=== PATIENT | female | born 1960 | race Caucasian/White ===

== ENCOUNTER 2017-06-16 12:31 | Inpatient (IN) | payer OTHER ==
[~2017-06-16] VITALS: Ht 160 cm; Wt 120.2 kg
[~2017-06-16 12:31] MED LIST: DIFLUCAN150 MG PO; MACROBID100 MG PO; PERCOCET 325 MG1 TA2 PO
--- NOTE | 2017-06-16 13:13 | ED PSYCHIATRIC COMPLAINT ---
History of Present Illness General Chief Complaint: Psychiatric Related Complaint Stated Complaint: + SI Source: patient Exam Limitations: no limitations Vital Signs & Intake/Output Vital Signs & Intake/Output Vital Signs Date Time Temp Pulse Resp B/P B/P Pulse O2 O2 Flow FiO2 Mean Ox Delivery Rate 06/17 1139 98.3 70 20 122/58 94 Room Air 06/17 0939 98.9 80 20 113/69 96 Room Air / 0710 98.2 64 18 127/76 95 Room Air / 0511 98.3 62 16 135/88 94 Room Air / 0219 98.0 60 20 121/60 94 Room Air 06/16 2238 97.8 71 16 116/68 95 Room Air 06/16 2015 99.0 78 18 116/77 97 Room Air 06/16 1841 98.8 79 18 137/70 96 Room Air 06/16 1605 98.6 72 18 133/66 98 Room Air 06/16 1404 97 Room Air ED Intake and Output 06/17 0000 06/16 1200 Intake Total Output Total Balance Patient 250 lb Weight Weight Reported by Patient Measurement Method Allergies Coded Allergies: hydrocodone (From VICODIN) (Intermediate, NAUSEA 06/16/17) erythromycin base (UNKNOWN 06/16/17) codeine (NAUSEA 06/16/17) Reconcile Medications No Known Home Medications Triage Note: PT TO ED WITH C/O "I DON'T WANT TO HURT MYSELF OR OR ANYTHING, BUT I WANT TO TALK TO SOMEONE, I DON'T WANT TO FEEL LIKE THIS, I CRY 24 HOUR A DAY, NOT SLEEPING". Triage Nurses Notes Reviewed? yes HPI: Patient presents for evaluation of depression and suicide ideation. Patient states that she has been having a lot of issues recently and feels that her brain has been leaping all over the place. She denies SI or HI but is beginning to feel a bit overwhelmed and she is not sure what to do. (Leidy VILLARREAL,Tom Gomes) Past History Travel History Traveled to [place] past 21 day No Medical History Any Pertinent Medical History? 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 No (Tom Forbes MD) Review of Systems Review of Systems Constitutional: Reports: no symptoms. EENTM: Reports: no symptoms. Respiratory: Reports: no symptoms. Cardiovascular: Reports: no symptoms. GI: Reports: no symptoms. Genitourinary: Reports: no symptoms. Musculoskeletal: Reports: no symptoms. Skin: Reports: no symptoms. Neurological/Psychological: Reports: see HPI. Hematologic/Endocrine: Reports: no symptoms. Immunologic/Allergic: Reports: no symptoms. All Other Systems: Reviewed and Negative (Leidy VILLARREAL,Tom Gomes) Physical Exam Physical Exam General Appearance: see below Neurological/Psychiatric: see below Comments: General: Alert, calm, cooperative Head: Normocephalic, atraumatic Eyes: Normal inspection, no nystagmus, EOMI Ears: Normal inspection Nose: Normal inspection Throat: Moist mucosa Neck: Supple, no goiter Heart: Regular rate and rhythm, no murmurs rubs or gallops Lungs: Clear to auscultation bilaterally with good air entry Abdomen: Soft nontender nondistended, normal bowel sounds Chest: Nontender Extremities: Normal range of motion grossly, mild tremors present, no cyanosis clubbing or edema of the upper extremities Neurologic: cranial nerves II through XII grossly intact, speech clear, gait normal Psychiatric: No apparent delusions or hallucinations, no pressured speech or thought blocking, emotionally labile SAD PERSONS Done? patient not suicidal (Leidy VILLARREAL,Tom Gomes) Progress Differential Diagnosis: DEPRESSION, ANXIETY, BIPOLAR DISORDER, PERSONALITY DISORDER Plan of Care: Orders Procedure Date/time Status Consistent Carbohydrate 2 06/17 B Active Admit to inpatient psych 06/17 1314 Active Continuous Observation Monitor 06/17 0700 Active Continuous Observation Monitor 06/17 0300 Active Continuous Observation Monitor 06/16 2300 Active Add-on Test (ER Only) 06/16 2045 Active Continuous Observation Monitor 06/16 1900 Active URINE 06/16 1400 Complete Current Medications Sig/Shahid Start time Last Medication Dose Stop Time Status Admin Hydroxyzine HCl 50 MG Q6P PRN 06/16 2044 AC 06/16 (Atarax) 2057 Laboratory Tests 04/04/18 1417: Anion Gap 12, Estimated GFR > 60, BUN/Creatinine Ratio 20.0, Glucose 114 H, Calcium 9.1, CBC w Diff NO MAN DIFF REQ, RBC 5.19, MCV 85.3, MCH 28.8, MCHC 33.8 , RDW 13.3, MPV 9.1, Gran % 68.3, Lymphocytes % 23.6, Monocytes % 6.2, Eosinophils % 1.3, Basophils % 0.6, Absolute Granulocytes 5.2, Absolute Lymphocytes 1.8, Absolute Monocytes 0.5, Absolute Eosinophils 0.1, Absolute Basophils 0, Serum Alcohol < 10.0 06/16/17 1400: Urine Opiates Screen < 100, Methadone Screen < 40, Barbiturate Screen < 60, Ur Phencyclidine Scrn < 6.00, Amphetamines Screen 300, U Benzodiazepines Scrn < 85, Urine Cocaine Screen < 50, Urine Cannabis Screen 20.80, Urine Test NEGATIVE Comments: 06/16/2017 3:23:13 PM patient 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 (Tom Forbes MD) Hand-Off Endorsed To: Néstor Tolentino MD Endorsed Time: 0700 Pending: other (re-eval) (Ruddy Rodriguez MD) Departure Departure Disposition: STILL A PATIENT Clinical Impression Primary Impression: Depression Referrals: Unknown (PCP/Family) Departure Forms: Customer Survey General Discharge Information Prescriptions: Current Visit Scripts No Known Home Medications (Tom Forbes MD) Departure Comments 06/16/17 6 PM Patient was signed out to me by Dr. Forbes. She is pending disposition by crisis. The patient will be signed out to Dr. Rodriguez at 7 PM (Tom Rasheed DO) Departure Condition: Stable (Ruddy Rodriguez MD) Psych Admission Note Psychiatric Admission: I have seen and evaluated RITESH ZHOU. I have also reviewed all the pertinent lab results and diagnostic results. RITESH ZHOU will be admitted to our inpatient Psychiatric unit for treatment and care. (Néstor Tolentino MD)
[2017-06-16 14:32] LABS: ABSOLUTE BASOPHIL COUNT 0 /CUMM (0.0-0.2); ABSOLUTE EOSINOPHIL COUNT 0.1 /CUMM (0.0-0.7); ABSOLUTE GRANULOCYTE CT 5.2 /CUMM (1.4-6.5); ABSOLUTE LYMPH COUNT 1.8 /CUMM (1.2-3.4); ABSOLUTE MONOCYTE COUNT 0.5 /CUMM (0.10-0.60); BASOPHIL % 0.6 % (0.0-2.0); EOSINOPHIL % 1.3 % (0-5); GRANULOCYTE % 68.3 % (42.2-75.2); HEMATOCRIT 44.3 % (37-47); MEAN CORPUSCULAR HGB 28.8 PG (27.0-31.0); MEAN CORPUSCULAR HGB CONC 33.8 G/DL (33.0-37.0); MEAN CORPUSCULAR VOLUME 85.3 FL (81.0-99.0); MEAN PLATELET VOLUME 9.1 FL (7.4-10.4); PLATELET COUNT 254 /CUMM (130-400); RBC DISTRIBUTION WIDTH 13.3 % (11.5-14.5); RED BLOOD CELL CT 5.19 /CUMM (4.20-5.40); WHITE BLOOD CELL COUNT 7.7 /CUMM (4.8-10.8)
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
[2017-06-17 16:34] VITALS: BP 100/75
[2017-06-17 19:48] VITALS: BP 118/69
[2017-06-17] MEDS ORDERED: METFORMIN HCL500 M3 PO (23:24)
[2017-06-17] MEDS ORDERED: ADVAIR 250-501 EACH INH (23:32)
[2017-06-18 08:34] VITALS: BP 138/79
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
[2017-06-18 12:11] VITALS: BP 110/60
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
[2017-06-18 15:37] VITALS: BP 119/76
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
--- NOTE | 2017-06-18 19:06 | History & Physical ---
General Information and HPI History of Present Illness: This middle-aged obese female was admitted to the hospital because of increased depression and anxiety. She has no previous history of psychiatric or other hospitalizations in [facility]. She claims she was once admitted in [facility] for psychiatric reasons for a few days many years ago but has not been seen any psychiatrist as outpatient and has not taken psychiatric medication. He also claims that she has not taken her medical medications given to her about 8 months ago and for last 6 months he has not taken any medicine. She used to be on inhaler and metformin but claims her sugar was always good and she has not been using her inhalers for her COPD. She claims she has COPD from long-term because she was a smoker most of her life started teenage years and smoking about a pack of cigarettes a day she denies drinking any alcohol or doing any drugs. 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 Her mother is alive in good health and her father a while ago. She claims she is and has 2 children in their 20s were in good health. She also reports that she had frequent urinary tract infection and was evaluated by a urologist but did not get the problem fixed with surgical procedure that was suggested by the outpatient urologist in [place]. Allergies/Medications Allergies: Coded Allergies: hydrocodone (From VICODIN) (Intermediate, NAUSEA 06/16/17) erythromycin base (UNKNOWN 06/16/17) codeine (NAUSEA 06/16/17) Home Med list Fluticasone/Salmeterol (Advair 250-50 Diskus) 250 MCG-50 MCG/DOSE BLST.W.DEV 1 PUF INH BID COPD (Reported) Metformin HCl 500 MG TABLET 500 MG PO BID DIABETES MAINTENANCE (Reported) Past History Travel History Traveled to [place] past 21 day No Medical History Neurological: NONE EENT: NONE Cardiovascular: NONE Respiratory: asthma, COPD Gastrointestinal: NONE Hepatic: NONE Renal: NONE Musculoskeletal: NONE Psychiatric: depression Endocrine: diabetes Blood Disorders: NONE Cancer(s): NONE 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 EENTM: Denies: no symptoms. Cardiovascular: Denies: no symptoms. Respiratory: Reports: see HPI, short of breath, sputum production. GI: Denies: no symptoms. Genitourinary: Reports: see HPI, dysuria. Musculoskeletal: Denies: no symptoms. Skin: Denies: no symptoms. Neurological/Psychological: Reports: see HPI, anxiety, depressed, emotional problems. Hematologic/Endocrine: Denies: no symptoms. All Other Systems: Reviewed and Negative Exam & Diagnostic Data Last 24 Hrs of Vital Signs/I&O Vital Signs Date Time Temp Pulse Resp B/P B/P Pulse O2 O2 Flow FiO2 Mean Ox Delivery Rate 06/18 1537 79 119/76 06/18 1211 78 110/60 06/18 0834 97.1 82 138/79 06/17 1948 98.1 78 118/69 Intake & Output 06/18 1600 06/18 0800 06/18 0000 Intake Total Output Total Balance Patient 265 lb Weight Physical Exam General Appearance Alert, Oriented X3, Cooperative, No Acute Distress Skin No Rashes, No Breakdown, No Significant Lesion HEENT Atraumatic, PERRLA, EOMI, Mucous Membr. moist/pink Neck Supple, No JVD, No thryomegaly, +2 Carotid Pulse wo Bruit Lymphatic Cervical nl Cardiovascular Regular Rate, Normal S1, Normal S2, No Murmurs, Gallops, Rubs Lungs Normal Air Movement, and rare coarse rhonchus but no significant bronchospasm Abdomen Soft, No Tenderness, No Hepatospenomegaly, No Masses Neurological Exam Findings: Normal Gait, Normal Speech, Strength at 5/5 X4 Ext, Normal Tone, Cranial Nerves 3-12 NL, Reflexes 2+ Cranial Nerves II through XII: Within normal limits and intact Extremities No Clubbing, No Cyanosis, No Edema, No Tenderness/Swelling Assessment/Plan Assessment: This middle-aged obese female is admitted for increasing anxiety and depression. She reports that she has long-standing history of COPD but has not been taking any medicine for more than 6 months and she saw her physician last time about 8 months ago in [place]. She also claims she was on metformin although her sugar was never high and it may have been for prediabetes. She has a history of frequent UTIs and her admission urinalysis is abnormal We will get a urine culture and continue her on Symbicort inhaler twice a day. There is no need for metformin at this time since her sugars being monitored in the hospital reasonably well. Her admission CBC and electrolytes are normal but she does not have any liver functions and we will check her liver functions and hemoglobin A1c with the next blood work. She does not need any other workup or treatment at this time until the culture result is back for the urine and then we will consider antibiotics. As Ranked By This Provider Problem List: 1. Depression 2. UTI (urinary tract infection) Miscellaneous Miscellaneous Documentation Attending Case Discussed With: Hong Toledo MD Primary Care Physician: Patient Has No Primary Care Dr Patient sees these Specialists none Level of Patient Care: JOHNNY Murcia Attending MD Review Statement Attending Statement Attending MD Statement: examined this patient, reviewed EMR data (avail), discussed with nursing Attending Assessment/Plan: This middle-aged obese female is admitted because of increasing depression and anxiety. She has long-standing COPD and frequent UTIs. We'll await for the urine culture result before giving her any antibiotics. She has some symptoms of urinary tract infection including dysuria but is afebrile and her white count is normal. We will also check her hemoglobin A1c but she does not need any metformin at this time unless her sugars go up in next couple of days. We will continue her Symbicort inhaler and albuterol for the rescue inhaler as needed.
[2017-06-18 19:39] VITALS: BP 116/73
[2017-06-19 08:06] VITALS: BP 135/84
--- NOTE | 2017-06-19 11:40 | CP SOUTH PROGRESS NOTE PSYCH ---
Psych (Inpt) Progress Note Progress Note Include the following elements, when applicable: Involvement in the active treatment of the patient with behavioral observations of the patient and the patient's response to the treatment. Review of the ongoing treatment process in the context of the treatment plan. Indication of how multi-disciplinary staff members are carrying out the treatment plan. Plans for future interventions and recommendations for revision of the treatment plan. Liaison with other physicians/providers. Progress Note: Pt notes that she continues to have post-void pain. Feels very tired today. Denies SI or HI. Plans to rest today. Current Medications Sig/Shahid Start time Last Medication Dose Route Stop Time Status Admin Albuterol Sulfate 2 PUF Q4P PRN 06/17 2345 AC INH Budesonide/ 2 PUF BID 06/17 2333 AC 06/19 Formoterol Fumarate INH 0819 Ergocalciferol 50,000 IU ONCE A WEEK 06/25 1000 AC PO Escitalopram Oxalate 10 MG DAILY 06/18 1000 AC 06/19 PO 0818 Gabapentin 200 MG Q2P PRN 06/17 2215 AC 06/18 PO 0922 Hydroxyzine HCl 50 MG Q6P PRN 06/16 2045 AC 06/18 PO 2135 Nicotine 2 MG Q2 HRS NEEDED PRN 06/18 1200 AC PO Trazodone HCl 50 MG AT BEDTIME NEED.. 06/17 2230 AC PO Laboratory Tests 06/19 06/17 0605 1410 Chemistry Hemoglobin A1c (4.2 - 5.8 %) Pending Total Bilirubin (0.2 - 1.3 mg/dL) 0.4 Direct Bilirubin (< 0.4 mg/dL) 0.4 AST (14 - 36 U/L) 18 ALT (9 - 52 U/L) 32 Alkaline Phosphatase (<127 U/L) 88 Total Protein (6.3 - 8.2 g/dL) 6.1 L Albumin (3.5 - 5.0 g/dL) 3.2 L Urines Urine Color (YEL,AMB,STR) YEL Urine Clarity (CLEAR) CLDY H Urine pH (5.0 - 8.0) 5.5 Ur Specific [place] (1.001 - 1.035) >= 1.030 Urine Protein (NEG,<30 MG/DL) NEG Urine Ketones (NEG) NEG Urine Nitrite (NEG) POS H Urine Bilirubin (NEG) NEG Urine Urobilinogen (0.1 - 1.0 EU/dl) 0.2 Ur Leukocyte Esterase (NEG) SMALL H Ur Microscopic SEDIMENT EXAMINED Urine RBC (0 - 5 /HPF) RARE Urine WBC (0 - 2 /HPF) 25-50 H Ur Epithelial Cells (NONE,FEW) MANY H Urine Bacteria (NEG/NONE) MANY H Urine Hemoglobin (NEG) MOD H Urine Glucose (N MG/DL) 100 H 06/16 06/16 1417 1400 Chemistry Sodium (137 - 145 mmol/L) 142 Potassium (3.5 - 5.1 mmol/L) 3.9 Chloride (98 - 107 mmol/L) 107 Carbon Dioxide (22 - 30 mmol/L) 23 Anion Gap (5 - 16) 12 BUN (7 - 17 mg/dL) 16 Creatinine (0.5 - 1.0 mg/dL) 0.8 Estimated GFR (>60 ml/min) > 60 BUN/Creatinine Ratio (7 - 25 %) 20.0 Glucose (65 - 99 mg/dL) 114 H Calcium (8.4 - 10.2 mg/dL) 9.1 Hematology CBC w Diff NO MAN DIFF REQ WBC (4.8 - 10.8 /CUMM) 7.7 RBC (4.20 - 5.40 /CUMM) 5.19 Hgb (12.0 - 16.0 G/DL) 15.0 Hct (37 - 47 %) 44.3 MCV (81.0 - 99.0 FL) 85.3 MCH (27.0 - 31.0 PG) 28.8 MCHC (33.0 - 37.0 G/DL) 33.8 RDW (11.5 - 14.5 %) 13.3 Plt Count (130 - 400 /CUMM) 254 MPV (7.4 - 10.4 FL) 9.1 Gran % (42.2 - 75.2 %) 68.3 Lymphocytes % (20.5 - 51.1 %) 23.6 Monocytes % (1.7 - 9.3 %) 6.2 Eosinophils % (0 - 5 %) 1.3 Basophils % (0.0 - 2.0 %) 0.6 Absolute Granulocytes (1.4 - 6.5 /CUMM) 5.2 Absolute Lymphocytes (1.2 - 3.4 /CUMM) 1.8 Absolute Monocytes (0.10 - 0.60 /CUMM) 0.5 Absolute Eosinophils (0.0 - 0.7 /CUMM) 0.1 Absolute Basophils (0.0 - 0.2 /CUMM) 0 Toxicology Urine Opiates Screen (>2000 NG/ML) < 100 Methadone Screen (>300 NG/ML) < 40 Barbiturate Screen (>200 NG/ML) < 60 Ur Phencyclidine Scrn (>25 NG/ML) < 6.00 Amphetamines Screen (>1000 NG/ML) 300 U Benzodiazepines Scrn (>200 NG/ML) < 85 Urine Cocaine Screen (>300 NG/ML) < 50 Urine Cannabis Screen (>50 NG/ML) 20.80 Serum Alcohol (<10 MG/DL) < 10.0 Urines Urine Test NEGATIVE Vital Signs Date Time Temp Pulse Resp B/P B/P Pulse O2 O2 Flow FiO2 Mean Ox Delivery Rate 06/19 0806 98.4 98 135/84 06/18 1939 98.0 100 116/73 06/18 1537 79 119/76 06/18 1211 78 110/60 MSE General appearance: good hygiene and grooming; Attitude: cooperative; Eye contact: appropriate; Movement: no psychomotor agitation or slowing; Speech: nl fluency, nl rate/rhythm, nl volume, nl prosody; Mood: "OK, tired" Affect: slightly irritable, flat, appropriate, constricted, non-labile, congruent; Thought process: linear and goal-directed; Thought content: denied SI or HI, no paranoid ideation; Perception: denied hallucinations- auditory, visual, does not appear to be responding to internal stimuli; I/J: limited A/P: Pt with MDD and passive SI in the context of a breakup now with slightly improved mood. - Awaiting ucx results, pending; medicine following -Continue current medication regimen -Encourage integration into the milieu
[2017-06-19 12:04] VITALS: BP 126/98
[2017-06-19 15:52] VITALS: BP 136/81
[2017-06-19 20:00] VITALS: BP 141/94
[2017-06-20 08:02] VITALS: BP 135/78
[2017-06-20 12:32] VITALS: BP 119/84
--- NOTE | 2017-06-20 12:44 | CP SOUTH PROGRESS NOTE PSYCH ---
Psych (Inpt) Progress Note Progress Note Include the following elements, when applicable: Involvement in the active treatment of the patient with behavioral observations of the patient and the patient's response to the treatment. Review of the ongoing treatment process in the context of the treatment plan. Indication of how multi-disciplinary staff members are carrying out the treatment plan. Plans for future interventions and recommendations for revision of the treatment plan. Liaison with other physicians/providers. Progress Note: Pt notes that she is very tired today. Slept well overnight. Still have post- void sx. Denies SI or HI. Current Medications Sig/Shahid Start time Last Medication Dose Route Stop Time Status Admin Albuterol Sulfate 2 PUF Q4P PRN 06/17 2345 AC INH Budesonide/ 2 PUF BID 06/17 2333 AC 06/20 Formoterol Fumarate INH 0901 Ergocalciferol 50,000 IU ONCE A WEEK 06/25 1000 AC PO Escitalopram Oxalate 10 MG DAILY 06/18 1000 AC 06/20 PO 0901 Gabapentin 200 MG Q2P PRN 06/17 2215 AC 06/18 PO 0922 Hydroxyzine HCl 50 MG Q6P PRN 06/16 2045 AC 06/19 PO 2121 Nicotine 2 MG Q2 HRS NEEDED PRN 06/18 1200 AC PO Nitrofurantoin 50 MG Q6 06/20 1229 UNVr PO 06/26 1200 Trazodone HCl 50 MG AT BEDTIME NEED.. 06/17 2230 AC 06/19 PO 2121 Laboratory Tests 06/19 06/17 0605 1410 Chemistry Hemoglobin A1c (4.2 - 5.8 %) Pending Total Bilirubin (0.2 - 1.3 mg/dL) 0.4 Direct Bilirubin (< 0.4 mg/dL) 0.4 AST (14 - 36 U/L) 18 ALT (9 - 52 U/L) 32 Alkaline Phosphatase (<127 U/L) 88 Total Protein (6.3 - 8.2 g/dL) 6.1 L Albumin (3.5 - 5.0 g/dL) 3.2 L Urines Urine Color (YEL,AMB,STR) YEL Urine Clarity (CLEAR) CLDY H Urine pH (5.0 - 8.0) 5.5 Ur Specific [place] (1.001 - 1.035) >= 1.030 Urine Protein (NEG,<30 MG/DL) NEG Urine Ketones (NEG) NEG Urine Nitrite (NEG) POS H Urine Bilirubin (NEG) NEG Urine Urobilinogen (0.1 - 1.0 EU/dl) 0.2 Ur Leukocyte Esterase (NEG) SMALL H Ur Microscopic SEDIMENT EXAMINED Urine RBC (0 - 5 /HPF) RARE Urine WBC (0 - 2 /HPF) 25-50 H Ur Epithelial Cells (NONE,FEW) MANY H Urine Bacteria (NEG/NONE) MANY H Urine Hemoglobin (NEG) MOD H Urine Glucose (N MG/DL) 100 H Microbiology 06/17 1410 URINE ROUT: Urine Culture - COMP ESCHERICHIA COLI Vital Signs Date Time Temp Pulse Resp B/P B/P Pulse O2 O2 Flow FiO2 Mean Ox Delivery Rate 06/20 1232 84 119/84 06/20 08 98.9 74 135/78 06/20 1999 99.0 70 141/94 06/19 1552 84 136/81 MSE General appearance: good hygiene and grooming; Attitude: cooperative; Eye contact: appropriate; Movement: no psychomotor agitation or slowing; Speech: nl fluency, nl rate/rhythm, nl volume, nl prosody; Mood: "sleepy" Affect: slightly irritable, flat, appropriate, constricted, non-labile, congruent; Thought process: linear and goal-directed; Thought content: denied SI or HI, no paranoid ideation; Perception: denied hallucinations- auditory, visual, does not appear to be responding to internal stimuli; I/J: limited A/P: Pt with MDD and passive SI in the context of a breakup now with slightly improved mood. - started nitrofurantoin x7d for symptomatic UTI based on ucx/s for E. Coli -Continue current medication regimen -Encourage integration into the milieu
[2017-06-20 16:13] VITALS: BP 142/77
[2017-06-20 19:41] VITALS: BP 131/87
[2017-06-21 08:03] VITALS: BP 116/89
--- NOTE | 2017-06-21 08:21 | CP SOUTH PROGRESS NOTE PSYCH ---
Psych (Inpt) Progress Note Progress Note Vital Signs Date Time Temp Pulse B/P B/P FiO2 06/21 802 97.3 91 116/89 06/20 1940 98.9 74 131/87 MSE good hygiene and grooming; cooperative; no psychomotor agitation or slowing; Normal speech, depressed mood and affect No thought disorder/linear and goal-directed; She reported that she is starting to have a glimmer of hope, denied SI or HI, no paranoid ideation; Perception: denied hallucinations, does not appear to be responding to internal stimuli Assessment: Pt with MDD and passive SI in the context of a breakup now with slightly improved mood. Treatment plan update Continue nitrofurantoin for symptomatic UTI Continue Lexapro 20 mg daily
[2017-06-21 12:21] VITALS: BP 119/75
[2017-06-21 15:56] VITALS: BP 132/72
--- NOTE | 2017-06-21 16:45 | SOCIAL WORKER PROG NOTE PSYCH ---
Social Work Progress Note Progress Note This science writer met with patient. She described her mood as "alright" and denied SI /HI/AH/VH. She stated that she had court scheduled for last 06/16/17, which she remember over the weekend. This science writer assisted the patient in calling the [place] [facility] to inquire about how she should proceed. The trade clerk requested that a letter is sent to the tso's office informing of the hospitalization (with ER visit on the date of the court date and current inpatient admission). (Letter was faxed to tso's Office at [phone] by Lashawn Patterson LCSW. This science writer confirmed receipt of the faxed letter with Sade at the tso's office at 4:43pm). Court date was for a misdemeanor, which she stated occurred about 3 years ago. This science writer and patient also discussed eventual discharge plans. She called [facility] and completed a phone screening in interest of a retirement. She was also encouraged to call [facility] [place] for a CAN assessment. This science writer called patient's friend, Jackie Brunner, and left in interest of scheduling a family meeting. A call back number was provided. This science writer left a for Layla Garza with [facility] at 3:17pm in interest of making a referral.
[2017-06-21 19:51] VITALS: BP 128/73
--- NOTE | 2017-06-22 08:24 | CP SOUTH PROGRESS NOTE PSYCH ---
Psych (Inpt) Progress Note Progress Note Vital Signs: Blood pressure: 116/80 mmHg, pulse 77 bpm, temperature: 97.4F The patient's progress, treatment plan, and aftercare plan were discussed and the treatment team meeting this morning. The team included nursing staff, social work staff, group and milieu therapy staff, and psychiatrist. Mental status examination: The patient was alert and oriented to time, place, and person. She was slightly out of breath. She showed normal psychomotor activity, no psychomotor agitation or slowing; Normal speech/not pressured, not slurred She reported some relative improvement in mood (though still depressed and anxious) No thought disorder/linear and goal-directed; She reported that she is starting to have a glimmer of hope, and denied SI. She denied thinking of violence or homicide, no paranoid ideation. The patient denied hallucinations, does not appear to be responding to internal stimuli Assessment: The patient is a 57-year-old White female who was admitted to the inpatient psychiatric unit at [facility] on June 17, 2017. Pt with MDD and passive SI Since her admission, the patient showed slightly improved mood. Treatment Plan update: Continue PRN Trazodone and PRN Atarax Continue nitrofurantoin for symptomatic UTI Continue Lexapro 20 mg daily
[2017-06-22 08:32] VITALS: BP 116/80
[2017-06-22 12:09] VITALS: BP 128/72
--- NOTE | 2017-06-22 14:00 | SOCIAL WORKER PROG NOTE PSYCH ---
Social Work Progress Note Progress Note RITESH ABELARDO [id number] 1960 RITESH ABELARDO [id number] Pended Authorization # Client Authorization # Type of Request [id number] CONCURRENT Date of Admission/ Start of Services Requested From Submission Date 06/17/2017 06/22/2017 06/22/2017
--- NOTE | 2017-06-22 14:37 | DISCHARGE SUMMARY REPORT-PSYCH ---
See Addendum Visit Information Visit Dates/Diagnosis' Admission Date: 06/17/17 Discharge Date: 06/24/17 Reason for Admission: thoughts of suicide Psy Discharge Primary Diag: Unspecified Depressive Disorder Hospital Course Significant Lab Findings: Lab Ur Epithelial Cells MANY H 06/17/17 1410 Urine Bacteria MANY H 06/17/17 1410 Urine Glucose 100 MG/DL H 06/17/17 1410 Urine Hemoglobin MOD H 06/17/17 1410 Urine WBC 25-50 /HPF H 06/17/17 1410 Course Complications: The patient did not have any complications when she was an inpatient psychiatric unit. Patient was treated for a urinary tract infection. Consultations: The patient had a history and physical examination by the therapy site coordinator. Please refer to the patient's electronic health record for the therapy site coordinator's H&P Allergies: Coded Allergies: hydrocodone (From VICODIN) (Intermediate, NAUSEA 06/16/17) erythromycin base (UNKNOWN 06/16/17) codeine (NAUSEA 06/16/17) Hospital Course/TX Response: Patient was admitted on 06/17/2017 I saw the patient for the initial psychiatric assessment on 06/18/2017. My initial Impression and Plan: 56-year-old single white female who was admitted because of severe depression and thoughts of suicide DSM 5 Diagnosis(es): Unspecified depressive disorder; COPD Treatment Plan: Inpatient psychiatric care with safety checks every 15 minutes Nursing assessments, vital signs, and patient education Group therapy and milieu therapy Biopsychosocial assessment by social work, collateral, and aftercare planning Patient to be evaluated daily by a psychiatrist ergocalciferol 50,000 international units every week 06/19/2017: Dr. Garnett was covering for the weekend and There were no changes made in the patient's medication 06/20/2017: Dr. Garnett was covering for the weekend started nitrofurantoin x7d for symptomatic UTI based on ucx/s for E. Coli -Continue current medication regimen 06/21/2017: No changes were made in the patient's treatment plan 06/22/2017: No changes were made in the patient's treatment plan 06/23/2017 The patient was continued on the same treatment. 06/24/2017 Mental Status Examination: Vital Signs: Blood pressure: 142/72 mmHg, pulse 97 bpm, temperature: 97.5F. The patient was alert and oriented to time, place, and person. She reported that "I am ready to go" "I can stay with a friend for a few days." She showed normal psychomotor activity with no psychomotor agitation or slowing. Her speech was normal/not pressured and not slurred. She reported some significant improvement in mood and denied feeling hopeless, denied wishing , and denied thoughts of suciide. No thought disorder/linear and goal-directed. She denied thinking of violence or homicide, no paranoid ideation. The patient denied hallucinations. Assessment: Nano is a 57-year-old White female who was admitted to the inpatient psychiatric unit on June 17, 2017. Pt with MDD and passive SI. Since her admission, the patient showed significant improvement since her admission on 06/17/2017 She is no longer thinking of suicide. Treatment Plan update: D/C to stay with a friend (friend lives 2 minutes from the hospital) Discharge HBIPS - Tobacco Use Treatment Offered Post DC Medications Offered: Script Given-See Med List Post DC Tobacco Treatment Plan: Marquez Tobacco Tx Pgm - EtOH/Drug Use D/O Treatment Offered Post DC Medications Offered: NA-No EtOH/Drug Use D/O Post DC EtOH/SubAbuse TX Plan: NA-No EtOH/Drug Use D/O Metabolic Screening - Screen if on a Neuroleptic Medication - Metabolic screening should include: - Blood Pressure, BMI, Glucose or Hgb A1c, & a - Lipid profile from within the past 365 days. Metabolic Screening ([X]) Not Applicable, patient not on a neuroleptic. Discharge Instructions General Discharge Information Multiple Neuroleptics: ([X]) Not Applicable Discharge Diet Regular Discharge Activity Normal DC Disposition: Discharge to a friend Referrals Ordered Referrals Provider Referral 06/28/17 For Providers: [Dr. Dickerson/Dr. Candelaria] For Groups: [[facility]] Dr. Dickerson/Dr. Candelaria [facility] [address] [place] [address] Appointment: 06/28/17, at 9:15am Please arrive by 9am Provider Referral 06/25/17 For Providers: [[facility]] For Groups: [[facility]] [address] [phone] [facility] Intake Appointment: 06/25/17, at 11:30am Provider Referral For Groups: [[facility]] [facility] [phone] They will contact you to schedule an appointment for counseling services. Provider Referral For Groups: [[facility]] [facility] Layla Garza Provider Referral 06/30/17 For Providers: [[facility]] For Groups: [[facility]] [facility] [address] [phone] Group meets every other Wednesday at 4pm Next group: 06/30/17, at 4pm Prescriptions Stop taking the following medications: Metformin HCl (Metformin HCl) 500 MG TABLET ORAL TWICE DAILY Fluticasone/Salmeterol (Advair 250-50 Diskus) 250 MCG-50 MCG/DOSE BLST.W.DEV Inhale through mouth TWICE DAILY Qty = 60 Start taking the following new medications: Loratadine (Loratadine) 10 MG TABLET 10 Milligram ORAL DAILY @8 AM Qty = 15 No Refills Albuterol Sulfate (Ventolin Hfa) 90 MCG HFA.AER.AD 2 Puff Inhale through mouth EVERY 4 HOURS NEEDED as needed for SHORTNESS OF BREATH Qty = 1 No Refills Nicotine (Nicorelief) 2 MG GUM 2 Milligram ORAL EVERY 2 HOURS NEEDED as needed for smoking Qty = 60 No Refills Escitalopram Oxalate (Lexapro) 10 MG TABLET 20 Milligram ORAL DAILY Qty = 15 No Refills Trazodone HCl (Trazodone HCl) 50 MG TABLET 50 Milligram ORAL AT BEDTIME as needed for Insomnia Qty = 15 No Refills Budesonide/Formoterol Fumarate (Symbicort 160-4.5 Mcg Inhaler) 160 MCG-4.5 MCG/ ACTUATION HFA.AER.AD 2 Puff Inhale through mouth TWICE DAILY Qty = 1 No Refills Ergocalciferol (Vitamin D2) (Vitamin D2) 50,000 UNIT CAPSULE 50,000 International Unit ORAL ONCE A WEEK Qty = 4 No Refills Studies Pending at Discharge None Copies To: [facility]
[2017-06-22 15:41] VITALS: BP 138/84
--- NOTE | 2017-06-22 16:47 | SOCIAL WORKER PROG NOTE PSYCH ---
Social Work Progress Note Progress Note This check writer salesperson met with patient. Patient stated that she has also spoken with her friend, Jackie, who stated that she would be able to stay with her for a few days upon discharge if needed. When asked about her mood, patient stated that she would like to speak with her children today as today is her birthday. This check writer salesperson spoke with Mary Jane Wagner RN and [facility] staff who will assist the patient in access to her phone so she can retrieve her daughter's number. Patient was informed that this check writer salesperson received a vm from [facility]. She gave authorization for this check writer salesperson to return the call. Patient denied SI/HI/AH/VH. This check writer salesperson spoke with Willa at [facility] who requested that the patient contact her for a screening. Patient was provided with their number ([phone]). She spoke with this check writer salesperson following the call and stated that the program is in [place] and that she would be very limited on finding a job or any travel due to not having transportation. This check writer salesperson received a call from Willa who confirmed this and stated that the patient may want to call [facility] again to explore other options. Willa asked that the patient call their office by 5pm tonight to inform of her decision. Patient informed this check writer salesperson that she is attempting to reach her friend, Jackie, to discuss the [facility] program and also calling [facility] and is waiting to hear from her. She stated that she would call [facility] by 5pm to inform of her decision. Patient was agreeable to a referral to [facility] in [place] (fax , 06/22/17 at 12:57pm) and [place] (fax [phone], 06/22/17 at 12: 59pm).
[2017-06-22 20:25] VITALS: BP 102/64
[2017-06-23 07:53] VITALS: BP 138/77
--- NOTE | 2017-06-23 14:55 | CP SOUTH PROGRESS NOTE PSYCH ---
Psych (Inpt) Progress Note Progress Note The patient's progress, treatment plan, and aftercare plan were discussed and the treatment team meeting this morning. The team included nursing staff, social work staff, group and milieu therapy staff, and psychiatrist. Mental Status Examination: Vital Signs: Blood pressure: 138/77 mmHg, pulse 78 bpm, temperature: 97.3F. The patient was alert and oriented to time, place, and person. She reported that "I am ready to go" but is waiting to hear from her friend. She showed normal psychomotor activity, no psychomotor agitation or slowing; Normal speech/not pressured, not slurred. She reported some relative improvement in mood (though still depressed and anxious). No thought disorder/linear and goal-directed. She denied wishing and denied SI. She denied thinking of violence or homicide, no paranoid ideation. The patient denied hallucinations. Assessment: Nano is a 57-year-old White female who was admitted to the inpatient psychiatric unit on June 17, 2017. Pt with MDD and passive SI. Since her admission, the patient showed slightly improved mood. She is no longer thinking of suicide. Treatment Plan update: Continue Lexapro 20 mg daily Continue PRN Trazodone and PRN Atarax Continue Ergocalciferol
[2017-06-23 16:10] VITALS: BP 99/65
--- NOTE | 2017-06-23 17:30 | SOCIAL WORKER PROG NOTE PSYCH ---
Social Work Progress Note Progress Note This ghost writer met with patient. Patient described her mood as "good" and denied SI/HI/AH/VH. Patient and this ghost writer discussed disharge plans. Patient stated that she plans to speak with her friend, Jackie, today or this evening about the possibility of the patient staying with her friend temporarily upon discharge. She stated that she may also be able to stay with her nephew if she is not able to stay with Jackie. This ghost writer and patient discussed other housing options. She stated that she is not comfortable with [facility] or a [facility] in [place] due to the town where they are located. She stated that she does feel safe in [place] where her friend lives. Patient expressed interest in IOP and a referral to [facility] for primary care. Patient accepted a referral to [facility] and met with Layla Garza from [facility] this afternoon to discuss their services. Patient will update this ghost writer with information regarding her conversation with her friend and/or nephew. She spoke with the nurse's desk about opting out, which they assisted her in doing.
[2017-06-23 20:03] VITALS: BP 113/85
[2017-06-24 08:11] VITALS: BP 142/72
--- NOTE | 2017-06-24 11:44 | CP SOUTH PROGRESS NOTE PSYCH ---
Psych (Inpt) Progress Note Progress Note The patient's progress, treatment plan, and aftercare plan were discussed and the treatment team meeting this morning. The team included nursing staff, social work staff, group and milieu therapy staff, and psychiatrist. Mental Status Examination: Vital Signs: Blood pressure: 142/72 mmHg, pulse 97 bpm, temperature: 97.5F. The patient was alert and oriented to time, place, and person. She reported that "I am ready to go" "I can stay with a friend for a few days." She showed normal psychomotor activity with no psychomotor agitation or slowing. Her speech was normal/not pressured and not slurred. She reported some significant improvement in mood and denied feeling hopeless, denied wishing , and denied thoughts of suciide. No thought disorder/linear and goal-directed. She denied thinking of violence or homicide, no paranoid ideation. The patient denied hallucinations. Assessment: Nano is a 57-year-old White female who was admitted to the inpatient psychiatric unit on June 17, 2017. Pt with MDD and passive SI. Since her admission, the patient showed significant improvement since her admission on 06/17/2017 She is no longer thinking of suicide. Treatment Plan update: D/C to stay with a friend (friend lives 2 minutes from the hospital)
[2017-06-24] MEDS ORDERED: VITAMIN D250000 UNIT PO (11:49)
[2017-06-24] MEDS ORDERED: VENTOLIN HFA18 GM INH (11:49)
[2017-06-24] MEDS ORDERED: SYMBICORT 16010.2 GM INH (11:49)
[2017-06-24] MEDS ORDERED: NICORELIEF2 MG PO (11:49)
[2017-06-24] MEDS ORDERED: LEXAPRO10 M1 PO (11:49)
[2017-06-24] MEDS ORDERED: LORATADINE10 M1 PO (11:49)
[2017-06-24] MEDS ORDERED: TRAZODONE HCL50 M1 PO (11:49)
--- NOTE | 2017-06-24 11:50 | Patient Discharge Instructions ---
Psych Discharge Inst General Discharge Information Reason for Admission: thoughts of suicide Psy Discharge Primary Diag+ MDD Summary Tests/Major Procedures Lab Ur Epithelial Cells MANY H 06/17/17 1410 Ur Leukocyte Esterase SMALL H 06/17/17 1410 Urine Bacteria MANY H 06/17/17 1410 Urine Bilirubin NEG 06/17/17 1410 Urine Clarity CLDY H 06/17/17 1410 Urine Color YEL 06/17/17 1410 Urine Glucose 100 MG/DL H 06/17/17 1410 Urine Hemoglobin MOD H 06/17/17 1410 Urine Ketones NEG 06/17/17 1410 Urine Nitrite POS H 06/17/17 1410 Urine Protein NEG MG/DL 06/17/17 1410 Urine Urobilinogen 0.2 EU/dl 06/17/17 1410 Urine WBC 25-50 /HPF H 06/17/17 1410 Urine pH 5.5 06/17/17 1410 Studies Pending at DC: None Patient Instructions Contact Information Your Psychiatrist on [facility] was Tre VILLARREAL,Hong * If you are experiencing an emergency related to this hospitalization, please call [phone] to contact the treating psychiatrist or the psychiatrist-on- call. * To Request a copy of your medical records, please contact the Medical Records Department at [phone]. * To request results of studies pending at the time of discharge, please call [phone]. * Continue your Medications until directed to stop by your Healthcare provider. General Medication Information Please continue to take your new medications and your continued home medications , unless otherwise indicated on your discharge medication list, or unless directed by your MD or FRENCH WEAVER to stop them. Special Instructions Diet Regular Activity Normal - Tobacco Use Treatment Offered Post DC Medications Offered: Script Given-See Med List Post DC Tobacco Treatment Plan: Refused Tobacco Tx Pgm - EtOH/Drug Use D/O Treatment Offered Post DC Medications Offered: NA-No EtOH/Drug Use D/O Post DC EtOH/SubAbuse TX Plan: NA-No EtOH/Drug Use D/O Metabolic Screening ([X]) Not Applicable, patient not on a neuroleptic. Advance Directives Does the Patient have Medical Advance Directives No/Refused further info Does Pt have Psychiatric Advance Directives? No/Refused further info Does Patient have a Designated Surrogate Decision Maker: No Information About Psychiatric Advance Directives Provided? Refused Discharge Plan Post Hospital Treatment Plan: IOP or OP
[2017-06-24 11:52] VITALS: BP 117/77
[2017-06-24 15:56] VITALS: BP 112/77
--- NOTE | 2017-06-24 18:42 | SOCIAL WORKER PROG NOTE PSYCH ---
Social Work Progress Note Progress Note This fiction writer met with patient. She expressed interest in finding a job and stated that she will be staying with her friend, Jackie, while looking for more permanent housing. She stated that Jackie will provide transportation from the hospital today. This fiction writer and patient attempted to reach Jackie by phone, but were unsuccessful. Patient reported a good mood and denied SI/HI/AH/VH. She identified a safety plan in which she stated, "I would come back here []. " She was also informed that she would be provided with crisis numbers and warm lines. Patient stated that if feeling threatened at any time, she would call 911. Patient was informed of appointments that have been scheduled, which she accepted: -[facility]: Wednesday, 9am on 06/28/[address] Dickerson and Dr. Candelaria. Appointment scheduled for kylee Licea. Patient will contact Layla after this appointment - IOP: 06/25/17 at 11:30am -[facility] Layla Castrejon - a vm was left for Layla with discharge information. She visited the unit prior to patient's discharge and provided her with her business card [email or web address] - this fiction writer spoke with [facility] who stated that they will contact the patient to schedule counseling in addition to IOP. Patient was provided with their number ([phone]) and will call them tomorrow if they have not already contacted her Patient provided an alternate phone number for herself: [phone] Patient's provided phone number for her friend, Jackie: [phone] Faxed Referral(s) 1 Referred To: IOP Transition of Care Documents sent: Health Summary Faxed to: IOP Fax #: [phone] Faxed by: Adryan Barclay LCSW Date faxed: 06/24/17 Time Faxed: [phone] Faxed Referral(s) 2 Referred To: [facility] Transition of Care Documents sent: Health Summary Faxed to: Dr. Dickerson/Dr. Candelaria, [facility] Fax #: [phone] Faxed by: JOHNNY [facility] Clerk Date faxed: 06/25/17 Time Faxed: [phone]
[2017-06-24 19:29] VITALS: BP 94/59
--- NOTE | 2017-06-25 15:59 | SOCIAL WORKER PROG NOTE PSYCH ---
Social Work Progress Note Progress Note This junior copywriter received a vm from Wendie at [facility] in interest of speaking with the patient. This junior copywriter contacted the patient by phone ([phone]) and gave her the message. She stated that she would call them. She also stated that she was unable to attend the IOP intake today and did not have a working phone until recently, therefore, unable to call. She stated that she would call [facility] to reschedule the intake (as well as [facility]) after this call. This information was relayed to [facility].
== END 2017-06-24 21:15 | DRG 754 ==
LOC: ERH 12:31 → ERHI 06-17 13:14 → CP SOUTH 06-17 13:14 → ENTRNSPT 06-17 15:53 → EDTRNSPTSTS 06-17 15:55 → CP SOUTH 06-17 16:07 → CMPTRNSPT 06-17 16:08 → CP SOUTH 06-17 18:23
PROVIDERS: Emergency Medicine
DX: F32.9 Major depressive disorder, single episode, unspecified (principal)
CPT/HCPCS: 36415; 80307; 81001; 81025; 87086; G0463; G0480; J3490

== ENCOUNTER 2017-09-12 20:07 | Inpatient (IN) | payer OTHER ==
[~2017-09-12] VITALS: Ht 165.1 cm; Wt 118.0 kg
[~2017-09-12 20:07] MED LIST changes: +ADVAIR 250-501 EACH INH; +CIPRO250 M1 PO; +CYCLOBENZAPRINE10 M1 PO; +IBUPROFEN600 M1 PO; +LEXAPRO10 M1 PO; +LORATADINE10 M1 PO; +METFORMIN HCL500 M3 PO; +NICORELIEF2 MG PO; +SYMBICORT 16010.2 GM INH; +TRAZODONE HCL50 M1 PO; +VENTOLIN HFA18 GM INH; +VITAMIN D250000 UNIT PO
--- NOTE | 2017-09-12 21:03 | ED DYSPNEA/ASTHMA COMPLAINT ---
History of Present Illness General Chief Complaint: General Adult Stated Complaint: "SOB,CHEST TIGHTNESS AND PRESSURE, N+V+D, DIZZY" Source: patient Exam Limitations: no limitations Vital Signs & Intake/Output Vital Signs & Intake/Output Vital Signs Date Time Temp Pulse Resp B/P B/P Pulse O2 O2 Flow FiO2 Mean Ox Delivery Rate 09/17 613 97.7 50 20 134/80 93 09/17 0049 93 Nasal 2.5L Cannula 09/17 0000 93 Nasal 2.5L Cannula 09/17 0000 93 Nasal 2.5L Cannula 09/16 2148 98.1 69 18 130/68 90 07/ 1605 89 Nasal 2.0L Cannula 09/16 1600 93 Nasal 2.5L Cannula 09/16 1404 98.1 61 16 130/86 92 Nasal 3.0L Cannula 09/16 1104 Nasal 2.0L Cannula 09/16 0859 92 Nasal 2.0L Cannula 09/16 0855 83 Room Air Room Air 09/16 0800 92 Nasal 2.0L Cannula 09/16 0800 97 Nasal 2.0L Cannula ED Intake and Output 09/17 0000 09/16 1200 Intake Total 1600 Output Total Balance 1600 Intake, IV 0 Intake, Oral 1600 Number 0 Bowel Movements Patient 260 lb Weight Weight Reported by Patient Measurement Method Allergies Coded Allergies: hydrocodone (From VICODIN) (Intermediate, NAUSEA 06/16/17) erythromycin base (UNKNOWN 06/16/17) codeine (NAUSEA 06/16/17) Triage Note: 57F TO ED W MULTIPLE COMPLAINTS, STATING "I JUST FEEL OFF AND THERE IS SOMETHING WRONG." VERY MALODOROUS OF URINE AND ADMITS TO CHRONIC UTI'S AND JUST COMPLETED COURSE OF CIPRO LAST WEEK. C/O DEEP MIDSTERNAL CHEST DISCOMFORT AND TIGHTNESS THAT BEGAN THIS MORNING WHEN SHE WOKE UP. DENIES RADIATION. ALSO REPORTS SHE HAS VOMITED MULTIPLE TIMES WHENEVER SHE EATS. STATES SHE RAN OUT OF HER METFORMIN WEEKS AGO AND HAS BEEN "ALL OVER THE PLACE" AND BECOMES TEARFUL AND SAYS SHE IS TIRED OF FEELING SO DEPRESSED. DENIES SUICIDALITY BUT EYE CONTACT POOR. PT IS VERY DIAPHORETIC IN TRIAGE. EKG COMPLETED, APPEARS NORMAL SINUS WITHOUT VENTRICULAR ECTOPY. Triage Nurses Notes Reviewed? yes Onset: Abrupt Duration: day(s): Timing: recent history Severity: moderate, severe Activities at Onset: none HPI: 57-year-old female comes into the emergency room for further evaluation of shortness of breath and dizziness. She has a history of COPD. She still smokes. He reports that she started to feel her breath morning and got dizzy when she was in the shower. She's had progressive shortness of breath. Denies any chest pain. Mild cough. Denies any fever chills or vomiting. Not on oxygen at home. Comes in for further evaluation. (Yovanny Retana) Reconcile Medications Budesonide/Formoterol Fumarate (Symbicort 160-4.5 Mcg Inhaler) 160 MCG-4.5 MCG/ ACTUATION HFA.AER.AD 2 PUF INH BID COPD Ergocalciferol (Vitamin D2) (Vitamin D2) 50,000 UNIT CAPSULE 50,000 IU PO ONCE A WEEK supplement Escitalopram Oxalate (Lexapro) 10 MG TABLET 20 MG PO DAILY depression/anxiety Ibuprofen 600 MG TABLET 1 TAB PO TID PRN PAIN with food Loratadine 10 MG TABLET 10 MG PO 0800 allergies Metformin HCl 500 MG TABLET 1 TAB PO BID diabetes (Reported) Trazodone HCl 50 MG TABLET 50 MG PO AT BEDTIME PRN Insomnia (Leidy VILLARREAL,Tom Gomes) Past History Travel History Traveled to [place] past 21 day No Medical History Any Pertinent Medical History? 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 No (Yovanny Retana) Review of Systems Review of Systems Constitutional: Reports: no symptoms. EENTM: Reports: no symptoms. Respiratory: Reports: see HPI. Cardiovascular: Reports: no symptoms. GI: Reports: no symptoms. Genitourinary: Reports: no symptoms. Musculoskeletal: Reports: no symptoms. Skin: Reports: no symptoms. Neurological/Psychological: Reports: no symptoms. Hematologic/Endocrine: Reports: no symptoms. Immunologic/Allergic: Reports: no symptoms. All Other Systems: Reviewed and Negative (Yovanny Retana) Physical Exam Physical Exam General Appearance: well developed/nourished, no apparent distress, alert, awake Head: atraumatic, normal appearance Eyes: Bilateral: normal appearance. Ears, Nose, Throat: normal ENT inspection, hearing grossly normal Neck: normal inspection Respiratory: decreased breath sounds, wheezing Cardiovascular: regular rate/rhythm Extremities: normal inspection, no edema Neurologic/Psych: awake, alert, oriented x 3 Skin: intact, normal color Core Measures ACS in differential dx? Yes CVA/TIA Diagnosis No Sepsis Present: No Sepsis Focused Exam Completed? No (Yovanny Retana) Progress Differential Diagnosis: asthma, AMI, bronchitis, costochondritis, CHF, COPD, musculoskeletal pain, pericarditis, pulmonary embolism, pneumonia, pneumothorax, rib fracture, unstable angina Plan of Care: Orders Procedure Date/time Status Nursing RT Care 09/16 08 Active Nursing Misc 09/16 UNK Active CHEST PHYSICAL THERAPY CHG 09/15 UNK Complete AEROSOL CHG 09/15 UNK Complete OXYGEN 09/15 UNK Complete OXYGEN DAILY CHARGE 09/15 UNK Complete CHEST PHYSICAL THERAPY CHG 09/14 UNK Complete AEROSOL CHG 09/14 UNK Complete OXYGEN 09/14 UNK Complete OXYGEN TRANSPORT 09/14 UNK Complete OXYGEN DAILY CHARGE 09/14 UNK Complete Current Medications Sig/Shahid Start time Last Medication Dose Stop Time Status Admin Prednisone 40 MG DAILY 09/17 0900 AC Methylprednisolone 20 MG ONCE ONE 09/16 2099 CAN (Solumedrol) 09/16 210 Polyethylene Glycol 17 GM DAILY 09/16 1000 AC 09/16 (Miralax) 1156 Senna/Docusate Sodium 1 TAB BID 09/16 1000 AC 09/16 (Senokot S) 204 Acetylcysteine 2 ML BID 09/14 2100 AC 09/16 (Mucosol 20%) 2009 Cyanocobalamin 250 MCG DAILY 09/14 1600 AC 09/16 (Vitamin B12) 0823 Guaifenesin 600 MG Q12 09/14 1126 AC 09/16 (Mucinex) 204 Trazodone HCl 50 MG AT BEDTIME PRN 09/13 2100 AC 09/17 (Desyrel) 0225 Doxycycline Hyclate 100 MG BID 09/13 1430 AC 09/16 (Vibramycin) 2045 Albuterol Sulfate 3 ML EVERY 4 HRS/AWAKE 09/13 1200 AC 09/16 (Proventil) 2009 Budesonide/ 2 PUF BID 09/13 899 AC 09/16 Formoterol Fumarate 2043 (Symbicort) Escitalopram Oxalate 20 MG DAILY 09/13 899 AC 09/16 (Lexapro) 822 Nicotine 14 MG DAILY 09/13 09 AC (Nicotine Cq) Insulin Aspart 0 TIDAC 09/13 08 AC 09/16 (NovoLOG) 115 Heparin Sodium 5,000 UNIT Q8 09/13 06 AC 09/17 (Porcine) 05 Acetaminophen 650 MG Q8P PRN 09/13 0300 AC 09/14 (Tylenol) 2148 Diagnostic Imaging: Viewed by Me: Radiology Read. Discussed w/RAD: Radiology Read. Radiology Impression: PATIENT: RITESH ZHOU PRESENT AGE: 57 PATIENT ACCOUNT NO: [id number] : 61 LOCATION: [facility] ORDERING PHYSICIAN: Yovanny TRAN SERVICE DATE: 09/12/17 EXAM TYPE: RAD - XRY-CHEST XRAY, TWO VIEWS EXAMINATION: XR CHEST CLINICAL INFORMATION: Chest pain. COMPARISON: None TECHNIQUE: 2 views of the chest were obtained. FINDINGS: No significant abnormality is noted involving the heart, lungs, mediastinum, bony thorax or soft tissues. IMPRESSION: Unremarkable examination. DICTATED BY: Eduar Lu MD DATE/TIME DICTATED:09/12/172135 TRANSPORTATION PLANNING TECHNICIAN:BLESSING DATE/TIME TRANSCRIBED:09/12/172135 CONFIDENTIAL, DO NOT COPY WITHOUT APPROPRIATE AUTHORIZATION. <Electronically signed in Other Vendor System> SIGNED BY: Eduar Lu MD 09/12/172139 Initial ED EKG: normal sinus rhythm, rate (75), nonspecific ST T wave chg Comments: 09/12/2017 10:25:43 PM Patient was complaining of feeling hopeless. Feeling depressed and very tearful. She doesn't care what happens to her. She is going to stay overnight for evaluation treatment the morning. Signout to Dr. Forbes. (Lester TRAN,Yovanny) CXR Impression: no acute abnormality Comments: 09/12/2017 11:30:33 PM patient signed out to me by PA at shift change advisor. 09/13/2017 1:40:26 AM despite 3 nebulized bronchodilator treatments and IV Solu- Medrol, Grisel continues to have coughing fits and wheezing. She states that her nebulizer at home never seems to work as well as which she receives in the emergency department/hospital. Given this I feel she requires hospitalization. (Tom Forbes MD) Departure Departure Condition: Stable Clinical Impression Primary Impression: COPD (chronic obstructive pulmonary disease) Secondary Impressions: Depression Referrals: Teagan Candelaria MD (PCP/Family) Departure Forms: Customer Survey General Discharge Information (Yovanny Retana) Departure Disposition: STILL A PATIENT Admission Note Spoke With: Guillermo Vega MD Documentation of Exam: Documentation of any treatments & extenuating circumstances including Concerns Regarding Discharge (functional status, medication knowledge or non-compliance, living conditions, etc.) that warrant an admission rather than observation: Patient is experiencing an acute exacerbation of COPD with decreased air entry and and expiratory wheezing despite repeated inhaled bronchodilators and IV Solu -Medrol. I do not feel she is a good candidate for outpatient management. I suspect that the exertion of outpatient treatment would exacerbate her COPD causing dyspnea chest pain hypoxia and potentially respiratory failure. She will very likely return in worse clinical condition. I feel she now requires hospitalization for continued nebulized bronchodilators and IV steroids. Oxygen should be supplemented if necessary. Pulmonary consultation should be considered. Smoking cessation counseling should be provided and treatment with a nicotine patch for nicotine gum initiated. Patient's COPD medications should be reviewed and optimized. I feel she will require a multiple day hospitalization. PA/MULT AU MATIC OPERATOR Co-Sign Statement Statement: ED Attending supervision documentation- [X] I saw and evaluated the patient. I have also reviewed all the pertinent lab results and diagnostic results. I agree with the findings and the plan of care as documented in the PA's/MULT AU MATIC OPERATOR's documentation. [] I have reviewed the ED Record and agree with the PA's/MULT AU MATIC OPERATOR's documentation. [] Additions or exceptions (if any) to the PAs/MULT AU MATIC OPERATOR's note and plan are summarized below: [] (Tom Forbes MD) Critical Care Note Critical Care Note Critical Care Time: non-applicable (Yovanny Retana) Departure Forms: Customer Survey General Discharge Information (Yovanny Retana) Departure Disposition: STILL A PATIENT Admission Note Spoke With: Guillermo Vega MD Documentation of Exam: Documentation of any treatments & extenuating circumstances including Concerns Regarding Discharge (functional status, medication knowledge or non-compliance, living conditions, etc.) that warrant an admission rather than observation: Patient is experiencing an acute exacerbation of COPD with decreased air entry and and expiratory wheezing despite repeated inhaled bronchodilators and IV Solu -Medrol. I do not feel she is a good candidate for outpatient management. I suspect that the exertion of outpatient treatment would exacerbate her COPD causing dyspnea chest pain hypoxia and potentially respiratory failure. She will very likely return in worse clinical condition. I feel she now requires hospitalization for continued nebulized bronchodilators and IV steroids. Oxygen should be supplemented if necessary. Pulmonary consultation should be considered. Smoking cessation counseling should be provided and treatment with a nicotine patch for nicotine gum initiated. Patient's COPD medications should be reviewed and optimized. I feel she will require a multiple day hospitalization. (Leidy VILLARREAL,Tom Gomes) Critical Care Note Critical Care Note Critical Care Time: non-applicable (Lester TRAN,Yovanny)
[2017-09-12 21:13] LABS: ABSOLUTE BASOPHIL COUNT 0 /CUMM (0.0-0.2); ABSOLUTE EOSINOPHIL COUNT 0.1 /CUMM (0.0-0.7); ABSOLUTE GRANULOCYTE CT 3.2 /CUMM (1.4-6.5); ABSOLUTE LYMPH COUNT 1.4 /CUMM (1.2-3.4); ABSOLUTE MONOCYTE COUNT 0.4 /CUMM (0.10-0.60); BASOPHIL % 0.4 % (0.0-2.0); EOSINOPHIL % 2.7 % (0-5); HEMATOCRIT 40.8 % (37-47); MEAN CORPUSCULAR HGB 28.1 PG (27.0-31.0); MEAN CORPUSCULAR HGB CONC 33.8 G/DL (33.0-37.0); MEAN PLATELET VOLUME 8.3 FL (7.4-10.4); PLATELET COUNT 276 /CUMM (130-400); RBC DISTRIBUTION WIDTH 13.4 % (11.5-14.5); RED BLOOD CELL CT 4.91 /CUMM (4.20-5.40); WHITE BLOOD CELL COUNT 5.1 /CUMM (4.8-10.8)
--- NOTE | 2017-09-12 21:40 | RADIOLOGY REPORT ---
EXAMINATION: XR CHEST CLINICAL INFORMATION: Chest pain. COMPARISON: None TECHNIQUE: 2 views of the chest were obtained. FINDINGS: No significant abnormality is noted involving the heart, lungs, mediastinum, bony thorax or soft tissues. IMPRESSION: Unremarkable examination.
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
[2017-09-13] MEDS ORDERED: METFORMIN HCL500 M3 PO (04:56)
[2017-09-13 06:28] VITALS: BP 134/86
[2017-09-13 07:30] LABS: ABSOLUTE BASOPHIL COUNT 0 /CUMM (0.0-0.2); ABSOLUTE EOSINOPHIL COUNT 0 /CUMM (0.0-0.7); ABSOLUTE GRANULOCYTE CT 3.8 /CUMM (1.4-6.5); ABSOLUTE LYMPH COUNT 0.6 /CUMM (1.2-3.4); ABSOLUTE MONOCYTE COUNT 0 /CUMM (0.10-0.60); BASOPHIL % 0 % (0.0-2.0); EOSINOPHIL % 0.1 % (0-5); HEMATOCRIT 40.2 % (37-47); MEAN CORPUSCULAR HGB 28.1 PG (27.0-31.0); MEAN CORPUSCULAR HGB CONC 33.3 G/DL (33.0-37.0); MEAN CORPUSCULAR VOLUME 84.3 FL (81.0-99.0); MEAN PLATELET VOLUME 8.8 FL (7.4-10.4); PLATELET COUNT 262 /CUMM (130-400); RBC DISTRIBUTION WIDTH 13.7 % (11.5-14.5); RED BLOOD CELL CT 4.77 /CUMM (4.20-5.40); WHITE BLOOD CELL COUNT 4.5 /CUMM (4.8-10.8)
[2017-09-13 08:16] LABS: GRANULOCYTE % 85.9 % (42.2-75.2)
--- NOTE | 2017-09-13 11:02 | Event Note ---
Event Note Event Note: Patient seen and examined today. She continues to have wheezing and cough with resulting chest soreness. On physical exam mild wheezes are heard throughout and she has soreness around the area of the sternum on palpation. The patient recounts that she has never seen a warehouse record clerk but had been referred to 1, missed the appointment because she was not able to get a ride there. The patient also states that she has a long history of snoring at night and bilateral lower extremity edema. Plan -We will order another EKG and troponin as patient has continuing chest pain -We will continue Solu-Medrol 40 mg every 8, of note patient has normal oxygen saturation off supplementary oxygen -As we are unsure of how much CHF may contribute to this patient's symptoms, we will order BNP and echocardiogram -We will hold antibiotics unless patient spikes fever or has elevated white blood cell count -We will do a noncontrast CT chest to evaluate for any other abnormality within the lungs or heart. -We have consulted with warehouse record clerk Dr. Pederson as well. Patient is full code Regular diet
--- NOTE | 2017-09-13 11:39 | PN- Att Addend ---
Attending Addendum Attending Brief Note Patient seen and examined, not feeling better. Still pretty short of breath. Patient is admitted with shortness of breath and acute COPD exacerbation. She had mentioned she had some chest pressure yesterday. Vital Signs Date Time Temp Pulse Resp B/P B/P Pulse O2 O2 Flow FiO2 Mean Ox Delivery Rate 09/13 0916 Room Air Room Air 09/13 0628 97.6 62 20 134/86 92 Room Air 09/13 0439 Room Air 09/13 0137 87 20 136/70 94 Room Air 09/12 2255 98.8 72 18 125/67 94 Room Air 09/12 2115 94 09/12 2021 98.3 75 16 99/67 98 Room Air on exam: aox3, nad. cv; s1,s2, rrr resp; + exp wheeze b/l abd; soft, nt, bs+ ext; no edema Laboratory Tests 09/13 09/13 1006 0658 Chemistry Sodium (137 - 145 mmol/L) 143 Potassium (3.5 - 5.1 mmol/L) 3.6 Chloride (98 - 107 mmol/L) 107 Carbon Dioxide (22 - 30 mmol/L) 25 Anion Gap (5 - 16) 10 BUN (7 - 17 mg/dL) 13 Creatinine (0.5 - 1.0 mg/dL) 0.6 Estimated GFR (>60 ml/min) > 60 BUN/Creatinine Ratio (7 - 25 %) 21.7 Troponin I Pending Kqb-N-Qmymdeuhyef Pept Pending Hematology CBC w Diff NO MAN DIFF REQ WBC (4.8 - 10.8 /CUMM) 4.5 L RBC (4.20 - 5.40 /CUMM) 4.77 Hgb (12.0 - 16.0 G/DL) 13.4 Hct (37 - 47 %) 40.2 MCV (81.0 - 99.0 FL) 84.3 MCH (27.0 - 31.0 PG) 28.1 MCHC (33.0 - 37.0 G/DL) 33.3 RDW (11.5 - 14.5 %) 13.7 Plt Count (130 - 400 /CUMM) 262 MPV (7.4 - 10.4 FL) 8.8 Gran % (42.2 - 75.2 %) 85.9 H Lymphocytes % (20.5 - 51.1 %) 13.0 L Monocytes % (1.7 - 9.3 %) 1.0 L Eosinophils % (0 - 5 %) 0.1 Basophils % (0.0 - 2.0 %) 0 Absolute Granulocytes (1.4 - 6.5 /CUMM) 3.8 Absolute Lymphocytes (1.2 - 3.4 /CUMM) 0.6 L Absolute Monocytes (0.10 - 0.60 /CUMM) 0 L Absolute Eosinophils (0.0 - 0.7 /CUMM) 0 Absolute Basophils (0.0 - 0.2 /CUMM) 0 09/12 2106 Chemistry Sodium (137 - 145 mmol/L) 145 Potassium (3.5 - 5.1 mmol/L) 3.5 Chloride (98 - 107 mmol/L) 108 H Carbon Dioxide (22 - 30 mmol/L) 26 Anion Gap (5 - 16) 10 BUN (7 - 17 mg/dL) 11 Creatinine (0.5 - 1.0 mg/dL) 0.8 Estimated GFR (>60 ml/min) > 60 BUN/Creatinine Ratio (7 - 25 %) 13.8 Glucose (65 - 99 mg/dL) 159 H Hemoglobin A1c (4.2 - 5.8 %) 6.2 H Calcium (8.4 - 10.2 mg/dL) 8.8 Total Bilirubin (0.2 - 1.3 mg/dL) 0.4 AST (14 - 36 U/L) 22 ALT (9 - 52 U/L) 30 Alkaline Phosphatase (<127 U/L) 97 Troponin I (< 0.11 ng/ml) < 0.01 Total Protein (6.3 - 8.2 g/dL) 6.4 Albumin (3.5 - 5.0 g/dL) 3.4 L Globulin (1.9 - 4.2 gm/dL) 3.0 Albumin/Globulin Ratio (1.1 - 2.2 %) 1.1 Vitamin B12 (239 - 931 pg/mL) 232 L TSH &T3 &Free T4 Intrp (0.270 - 4.20 uIU/mL) 0.716 Hematology CBC w Diff NO MAN DIFF REQ WBC (4.8 - 10.8 /CUMM) 5.1 RBC (4.20 - 5.40 /CUMM) 4.91 Hgb (12.0 - 16.0 G/DL) 13.8 Hct (37 - 47 %) 40.8 MCV (81.0 - 99.0 FL) 83.0 MCH (27.0 - 31.0 PG) 28.1 MCHC (33.0 - 37.0 G/DL) 33.8 RDW (11.5 - 14.5 %) 13.4 Plt Count (130 - 400 /CUMM) 276 MPV (7.4 - 10.4 FL) 8.3 Gran % (42.2 - 75.2 %) 62.0 Lymphocytes % (20.5 - 51.1 %) 27.4 Monocytes % (1.7 - 9.3 %) 7.5 Eosinophils % (0 - 5 %) 2.7 Basophils % (0.0 - 2.0 %) 0.4 Absolute Granulocytes (1.4 - 6.5 /CUMM) 3.2 Absolute Lymphocytes (1.2 - 3.4 /CUMM) 1.4 Absolute Monocytes (0.10 - 0.60 /CUMM) 0.4 Absolute Eosinophils (0.0 - 0.7 /CUMM) 0.1 Absolute Basophils (0.0 - 0.2 /CUMM) 0 Toxicology Serum Alcohol (<10 MG/DL) < 10.0 09/12 Toxicology Urine Opiates Screen (>2000 NG/ML) < 100 Methadone Screen (>300 NG/ML) < 40 Barbiturate Screen (>200 NG/ML) < 60 Ur Phencyclidine Scrn (>25 NG/ML) < 6.00 Amphetamines Screen (>1000 NG/ML) 299 U Benzodiazepines Scrn (>200 NG/ML) < 85 Urine Cocaine Screen (>300 NG/ML) < 50 Urine Cannabis Screen (>50 NG/ML) 8.70 Urines Urine Color (YEL,AMB,STR) YEL Urine Clarity (CLEAR) HAZY H Urine pH (5.0 - 8.0) 6.0 Ur Specific [place] (1.001 - 1.035) >= 1.030 Urine Protein (NEG,<30 MG/DL) TRACE H Urine Ketones (NEG) NEG Urine Nitrite (NEG) NEG Urine Bilirubin (NEG) NEG@ICTO Urine Urobilinogen (0.1 - 1.0 EU/dl) 1.0 Ur Leukocyte Esterase (NEG) NEG Ur Microscopic SEDIMENT EXAMINED Urine RBC (0 - 5 /HPF) RARE Urine WBC (0 - 2 /HPF) 5-10 H Ur Epithelial Cells (NONE,FEW) MANY H Urine Bacteria (NEG/NONE) MOD H Urine Mucus (FEW,NONE) MANY H Urine Hemoglobin (NEG) NEG Urine Glucose (N MG/DL) NEG EKG: NSR. A/P: 57 y/o F with pmh sig for Asthma, COPD (dx'ed 2011, not on home O2), type 2 diabetes, depression (admitted to [facility] a few months ago), current smoker w/ 40 pk year smoking history, recurrent UTIs admitted with shortness of breath and acute COPD exacerbation. Patient complains of chest pressure, I will repeat her troponin. EKG and first troponin were negative. We will also check an echocardiogram. We will obtain a noncontrast CT chest. She is not requiring any oxygen but she feels very short of breath with minimal exertion and has bilateral expiratory wheezing. Will also call a pulmonology consult. Continue current IV steroids and TRC nebs. Will watch off of antibiotics. Patient afebrile with white count normal. DVT prophylaxis: Heparin subcutaneous.
--- NOTE | 2017-09-13 12:56 | CT SCAN REPORT ---
EXAMINATION: CT CHEST WITHOUT CONTRAST CLINICAL INFORMATION: Shortness of breath, cough. Presumptive diagnosis of lung pathology contributing to shortness of breath. COMPARISON: Chest x-ray dated 09/12/2017. TECHNIQUE: Multidetector volumetric CT imaging of the chest was obtained noncontrast. Sagittal and coronal reformations were obtained. DLP: 745.08 mGy-cm. FINDINGS: LUNGS: Slight thickening of the central small airways is seen, and there is a suspicion of subtle groundglass opacity centrilobular nodules, most prominent in both upper lobes. No bronchiectasis or significant pulmonary emphysema or evidence of interstitial lung disease or fibrosis. Scattered areas of linear atelectatic changes are noted in the lungs bilaterally. There are a few tiny 2 to 3 mm solid noncalcified nodular densities in the lungs bilaterally, some of which appear to be associated with airways. These nodular densities are seen in the right upper lobe (series 4, image 139, 170), associated with the left major fissure (series 4, image 167), associated with the right major fissure (series 4, image 219), and in the right lower lobe (series 4, image 320). No effusion or pneumothorax. LYMPHOVASCULAR STRUCTURES: Aortic and heart size normal. Mild atherosclerotic calcifications of the aorta. No pericardial effusion. No mediastinal, hilar or axillary adenopathy or free fluid collection. THYROID GLAND: Unremarkable to the extent included. UPPER ABDOMEN: There is a 1.1 x 1.4 x 2.3 cm subcapsular low-attenuation mass in the left lobe of the liver (series 2, image 48), likely a cyst. Additional 0.8 cm low-attenuation mass is seen in the right lobe of the liver (series 2, image 62), demonstrating slightly indistinct margins but central fluid attenuation, possibly a cystic lesion. Ill-defined low-attenuation is seen in the caudate lobe (series 2, image 54), along the anterior margin of the IVC, possibly representing focal fat infiltration versus volume averaging with the left hepatic vein versus artifact related to beam hardening. Included portions of the solid organs in the upper abdomen otherwise unremarkable. Postcholecystectomy tawny are seen in place. BONES: Moderate vertebral spondylosis is seen throughout the spine. No suspicious focal findings. IMPRESSION: 1. Slightly thickened airways a few which are associated with small nodular densities, likely representing mucus plugging. Subtle faint groundglass opacity centrilobular nodules are also seen in the upper lobes. These findings may be associated with chronic small airways disease or acute bronchitis/reactive airways disease (respiratory bronchiolitis) or hypersensitivity pneumonitis. Clinical correlation requested. 2. A few scattered tiny pulmonary nodules are seen, measuring between 2 and 3 mm. Several of these are associated with airways (likely mucous plugging) as discussed above or with fissures (likely fissural based lymph nodes). No suspicious pulmonary nodule or mass is seen. Per the Fleischner criteria, if the patient has underlying risk factors, optional CT scan follow-up in 12 months can be performed. If the patient is low risk, no routine follow-up is required. 3. Incompletely characterized low-attenuation masses are seen in the liver as discussed above, possibly representing cysts in the left and right lobes and an area of focal fat infiltration in the caudate lobe. However, characterization of the findings is limited on this noncontrast enhanced CT scan. If the patient has no outside old films for comparison, recommend further assessment with MRI scan. 4. Status post cholecystectomy.
--- NOTE | 2017-09-13 13:18 | Cons- Pulmonary ---
General Information and HPI Consulting Request Date of Consult: 09/13/17 Requested By: Sera Reason for Consult: Acute hypoxic respiratory failure COPD and exacerbation History of Present Illness: Patient is 57-year-old with a 63-[id number]-[id number] smoking history actively smoking admitted with increasing cough shortness of breath with several days' duration. She denies having had pulmonary function testing but has been told of COPD by her primary care doctor. She was actively smoking approximately half pack per day. She's had increasing cough shortness of breath and intermittent anterior chest pain. CT scan of the chest shows evidence of mucous plugging and pulmonary nodules. Patient has been treated with IV steroids Allergies/Medications Allergies: Coded Allergies: hydrocodone (From VICODIN) (Intermediate, NAUSEA 06/16/17) erythromycin base (UNKNOWN 06/16/17) codeine (NAUSEA 06/16/17) Home Med List: Budesonide/Formoterol Fumarate (Symbicort 160-4.5 Mcg Inhaler) 160 MCG-4.5 MCG/ ACTUATION HFA.AER.AD 2 PUF INH BID COPD Ergocalciferol (Vitamin D2) (Vitamin D2) 50,000 UNIT CAPSULE 50,000 IU PO ONCE A WEEK supplement Escitalopram Oxalate (Lexapro) 10 MG TABLET 20 MG PO DAILY depression/anxiety Ibuprofen 600 MG TABLET 1 TAB PO TID PRN PAIN with food Loratadine 10 MG TABLET 10 MG PO 0800 allergies Metformin HCl 500 MG TABLET 1 TAB PO BID diabetes (Reported) Trazodone HCl 50 MG TABLET 50 MG PO AT BEDTIME PRN Insomnia Review of Systems Review of Systems Constitutional: Denies: chills, fever. Cardiovascular: Reports: chest pain. Denies: edema. Respiratory: Reports: cough, short of breath, wheezing. Denies: hemoptysis, sputum production. GI: Denies: abdominal pain, diarrhea, melena, nausea. 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 MOTHER (thyroid disorder, type unknown). Psychosocial History Services at Home: None Smoking Status: Current Everyday Smoker Functional Ability ADLs Independent: dressing, eating, toileting, bathing. Ambulation: independent Employment History Employment: Unemployed Exam & Diagnostic Data Last 24 Hrs of Vital Signs/I&O Vital Signs Date Time Temp Pulse Resp B/P B/P Pulse O2 O2 Flow FiO2 Mean Ox Delivery Rate 09/13 1225 87 Room Air Room Air 09/13 0916 Room Air Room Air 09/13 0800 94 Room Air 09/13 0628 97.6 62 20 134/86 92 Room Air 09/13 0439 Room Air 09/13 0137 87 20 136/70 94 Room Air 09/12 2255 98.8 72 18 125/67 94 Room Air 09/12 2115 94 07 2022 98.3 75 16 99/67 98 Room Air Intake & Output 09/13 1600 09/13 0800 09/13 0000 Intake Total Output Total Balance Patient 258 lb Weight Weight Bed scale Measurement Method Room oxygen saturation 87% she was placed on 2 L nasal oxygen HNT exam shows no adenopathy exam for chest shows scattered expiratory wheezes cardiac exam shows regular S1 and S2 abdomen shows a soft nontender obese abdomen her extremities without edema Last 48 Hrs of Labs/Gabe: Laboratory Tests 09/13/17 1006: Troponin I < 0.01, Aux-K-Cdexpltemai Pept 136 H 09/13/17 0658: Anion Gap 10, Estimated GFR > 60, BUN/Creatinine Ratio 21.7, CBC w Diff NO MAN DIFF REQ, RBC 4.77, MCV 84.3, MCH 28.1, MCHC 33.3, RDW 13.7, MPV 8.8, Gran % 85.9 H, Lymphocytes % 13.0 L, Monocytes % 1.0 L, Eosinophils % 0.1, Basophils % 0, Absolute Granulocytes 3.8, Absolute Lymphocytes 0.6 L, Absolute Monocytes 0 L, Absolute Eosinophils 0, Absolute Basophils 0 09/12/17 2107: Anion Gap 10, Estimated GFR > 60, BUN/Creatinine Ratio 13.8, Glucose 159 H, Hemoglobin A1c 6.2 H, Calcium 8.8, Total Bilirubin 0.4, AST 22, ALT 30, Alkaline Phosphatase 97, Troponin I < 0.01, Total Protein 6.4, Albumin 3.4 L, Globulin 3.0, Albumin/Globulin Ratio 1.1, Vitamin B12 232 L, TSH &T3 &Free T4 Intrp 0.716, CBC w Diff NO MAN DIFF REQ, RBC 4.91, MCV 83.0, MCH 28.1, MCHC 33.8 , RDW 13.4, MPV 8.3, Gran % 62.0, Lymphocytes % 27.4, Monocytes % 7.5, Eosinophils % 2.7, Basophils % 0.4, Absolute Granulocytes 3.2, Absolute Lymphocytes 1.4, Absolute Monocytes 0.4, Absolute Eosinophils 0.1, Absolute Basophils 0, Serum Alcohol < 10.0 09/12/172032: Urine Color YEL, Urine Clarity HAZY H, Urine pH 6.0, Ur Specific [place] >= 1.030, Urine Protein TRACE H, Urine Ketones NEG, Urine Nitrite NEG, Urine Bilirubin NEG@ICTO, Urine Urobilinogen 1.0, Ur Leukocyte Esterase NEG, Ur Microscopic SEDIMENT EXAMINED, Urine RBC RARE, Urine WBC 5-10 H, Ur Epithelial Cells MANY H, Urine Bacteria MOD H, Urine Mucus MANY H, Urine Hemoglobin NEG, Urine Glucose NEG 09/12/172022: Urine Opiates Screen < 100, Methadone Screen < 40, Barbiturate Screen < 60, Ur Phencyclidine Scrn < 6.00, Amphetamines Screen 299, U Benzodiazepines Scrn < 85, Urine Cocaine Screen < 50, Urine Cannabis Screen 8.70 Assessment/Plan Impression/Plan: 57-year-old with [id number] smoking history actively smoking is admitted with acute hypoxic respiratory failure secondary to COPD exacerbation and mucous plugging. Recommendations: Continue IV steroids antibiotics and aggressive pulmonary toilet. Sputum for C& S. Patient will require follow-up CAT scan for pulmonary nodules. Patient is been counseled regarding the need for smoking cessation. Flutter valve can be used for expectoration.. Consult Acknowledgment - Thank you for your consult request.
[2017-09-13 14:45] VITALS: BP 124/72
[2017-09-13 16:35] VITALS: BP 122/80
[2017-09-13 22:30] VITALS: BP 118/72
[2017-09-14 06:00] VITALS: BP 110/70
--- NOTE | 2017-09-14 06:30 | ECHOCARDIOGRAM REPORT ---
RITESH ZHOU Age: 57 : 1960 Gender: F Exam Date: 09/13/2017 10:29 Exam Location: [address] [place] [address] Ht (in): 65 Wt (lb): 258 BSA: 2.38 BP: 134 / 86 Ordering Physician: Norma Pierre MD Referring Physician: Norma Pierre MD Technologist: Abram Menon [facility] Room Number: 210-2 Indications: HEART FAILURE Rhythm: Sinus Technical Quality: good FINDINGS Left Ventricle Normal left ventricular size, wall thickness and systolic function with no obvious regional wall motion abnormalities. Diastolic filling pattern is consistent with impaired LV relaxation. The ejection fraction is visually estimated at 60%. Right Ventricle The right ventricle is normal in size and function. Right Atrium The right atrium is normal in size. Left Atrium The left atrium is normal in size. The interatrial septum is intact. Mitral Valve The mitral valve is normal in structure and function. There is no mitral regurgitation. Aortic Valve Structurally normal aortic valve without significant sclerosis or stenosis. There is no aortic regurgitation. Tricuspid Valve The tricuspid valve is normal in structure and function. There is no tricuspid regurgitation. Pulmonic Valve Structurally normal pulmonic valve. There is no pulmonic regurgitation. Pericardium Normal pericardium without effusion. No pleural effusion. Great Vessels Normal aortic root dimension. The aortic arch and great vessels are well seen and are normal. CONCLUSIONS 1. Normal EF of 60% with impaired LV relaxation. Scotty Tineo M.D. (Electronically Signed) Final Date: 14 September 2017 06:29 MEASUREMENTS (Male / Female) Normal Values 2D ECHO LV Diastolic Diameter PLAX 4.4 cm 4.2 - 5.9 / 3.9 - 5.3 cm LV Systolic Diameter PLAX 3.3 cm 2.1 - 4.0 cm LV Fractional Shortening PLAX 25.0 % 25 - 46 % LV Ejection Fraction 2D Teich 49.7 % IVS Diastolic Thickness 1.0 cm LVPW Diastolic Thickness 1.2 cm LV Relative Wall Thickness 0.5 LVOT Diameter 1.7 cm Aortic Root Diameter 2.7 cm LA Systolic Diameter LX 3.3 cm 3.0 - 4.0 / 2.7 - 3.8 cm LA Volume 31.0 cm 18 - 58 / 22 - 52 cm DOPPLER AV Peak Velocity 190.0 cm/s AV Peak Gradient 14.4 mmHg AV Mean Velocity 124.0 cm/s AV Mean Gradient 7.0 mmHg AV Velocity Time Integral 39.9 cm LVOT Peak Velocity 121.0 cm/s LVOT Peak Gradient 5.9 mmHg LVOT Mean Velocity 70.4 cm/s LVOT Mean Gradient 3.0 mmHg LVOT Velocity Time Integral 26.5 cm LVOT Stroke Volume 60.1 cm AV Area Cont Eq vti 1.5 cm AV Area Cont Eq pk 1.4 cm MV Peak Velocity 112.0 cm/s MV Peak Gradient 5.0 mmHg MV Mean Velocity 70.8 cm/s MV Mean Gradient 2.0 mmHg Mitral E Point Velocity 86.4 cm/s Mitral A Point Velocity 104.0 cm/s Mitral E to A Ratio 0.8 MV PHT Velocity 102.0 cm/s MV Deceleration Brantley 295.0 cm/s MV Pressure Half Time 103.7 ms MV Area PHT 2.1 cm MV Deceleration Time 306.0 ms PV Peak Velocity 116.0 cm/s PV Peak Gradient 5.4 mmHg PV Mean Velocity 75.9 cm/s PV Mean Gradient 3.0 mmHg PV Velocity Time Integral 24.2 cm LV E' Lateral Velocity 10.8 cm/s Mitral E to LV E' Lateral Ratio 8.0 LV E' Septal Velocity 7.9 cm/s Mitral E to LV E' Septal Ratio 10.9
--- NOTE | 2017-09-14 06:34 | PN- Housestaff ---
Gabby VILLARREAL,Norma 09/14/17 0634: Subjective Follow-up For: copd exacerbation Subjective: Patient seen and examined. She states that she continues to have pain on inspiration throughout her chest that she attributes to cough. Patient has nonproductive cough. Patient notes that she has a headache that she attributes to sinus pressure. She also complains of "ear crackles" that are elicited when she presses on the pinna. Otherwise no other complaints. Review of Systems Constitutional: Reports: no symptoms. EENTM: Reports: hearing changes. Cardiovascular: Reports: chest pain. Respiratory: Reports: cough, short of breath, wheezing. Gastrointestinal: Reports: no symptoms. Genitourinary: Reports: no symptoms. Musculoskeletal: Reports: no symptoms. Skin: Reports: no symptoms. Neurological/Psychological: Reports: no symptoms. Hematologic/Endocrine: Reports: no symptoms. Immunologic/Allergic: Reports: no symptoms. Objective Last 24 Hrs of Vital Signs/I&O Vital Signs Date Time Temp Pulse Resp B/P B/P Pulse O2 O2 Flow FiO2 Mean Ox Delivery Rate 09/14 0800 94 Nasal 2.0L Cannula 09/14 0600 98.1 54 22 110/70 95 Nasal 2.0L Cannula 09/13 2230 99.0 89 24 118/72 95 07 2200 Nasal 2.0L Cannula 09/13 1635 86 22 122/80 94 Nasal 2.0L Cannula 09/13 1600 94 Nasal 2.0L Cannula 09/13 1600 94 Nasal 2.0L Cannula 09/13 1445 97.9 72 25 124/72 92 Nasal 2.0L Cannula 09/13 1225 87 Room Air Room Air 09/13 0916 Room Air Room Air Intake & Output 09/14 1600 09/14 0800 09/14 0000 Intake Total 480 1020 Output Total Balance 480 1020 Intake, Oral 480 1020 Patient 193 lb Weight Physical Exam General Appearance: Alert, Oriented X3, Cooperative, No Acute Distress Skin: No Rashes, No Breakdown, No Significant Lesion Skin Temp/Moisture Exam: Warm/Dry Sepsis Skin Exam (color): Normal for Ethnicity HEENT: Atraumatic, PERRLA, EOMI, Mucous Membr. moist/pink, patient has no pain on palpation of sinuses. Ear exam normal, patient notes that she feels "crackles" when she presses on pinna. No hearing change. Cardiovascular: Regular Rate, Normal S1, Normal S2, No Murmurs Lungs: mild wheezing auscultated in the upper lung cruz, better since yesterday Abdomen: Normal Bowel Sounds, Soft, No Tenderness, No Hepatospenomegaly Neurological: Normal Speech Extremities: No Clubbing, No Cyanosis, No Edema, Normal Pulses, No Tenderness/ Swelling Vascular: Normal Pulses, Pulses Symmetrical Current Medications: Current Medications Sig/Shahid Start time Last Medication Dose Route Stop Time Status Admin Acetaminophen 650 MG Q8P PRN 09/13 0300 AC 09/14 PO 0736 Albuterol Sulfate 3 ML EVERY 4 HRS/AWAKE 09/13 1200 AC 09/14 INH 0808 Albuterol Sulfate 3 ML Q4H PRN 09/13 0300 DC INH Budesonide/ 2 PUF BID 09/13 0900 AC 09/13 Formoterol Fumarate INH 2046 Doxycycline Hyclate 100 MG BID 09/13 1430 AC 09/13 PO 2214 Escitalopram Oxalate 20 MG DAILY 09/13 0900 AC 09/13 PO 0900 Guaifenesin 10 ML Q4P PRN 09/13 0300 AC 09/14 PO 0743 Heparin Sodium 5,000 UNIT Q8 09/13 0600 AC 09/14 (Porcine) SC 0646 Insulin Aspart 0 TIDAC 09/13 0800 AC 09/14 SC 0829 Ipratropium [place] 2.5 ML EVERY 4 HRS/AWAKE 09/13 1200 AC 09/14 INH 0808 Methylprednisolone 40 MG BID 09/14 0900 AC IV Methylprednisolone 40 MG Q8 09/13 0600 DC 09/14 IV 0646 Nicotine 14 MG DAILY 09/13 0900 AC TOP Ondansetron HCl 4 MG ONCE ONE 09/13 2099 DC 09/13 PO 09/13 Ramelteon 8 MG ONCE ONE 09/14 1999 DC 09/13 PO 09/13 Trazodone HCl 50 MG .STK-MED ONE 09/13 2150 DC PO 09/14 2151 Trazodone HCl 50 MG AT BEDTIME PRN 09/13 2100 AC 09/13 PO 221 Last 24 Hrs of Lab/Gabe Results Last 24 Hrs of Labs/Mics: Laboratory Tests 09/13/17 1006: Troponin I < 0.01, Rpt-L-Molazcnubrl Pept 136 H Assessment/Plan Assessment: Ms Robles is a 57 year old woman w/ a PMHx of Asthma, COPD (dx'ed 2012, not on home O2), type 2 diabetes, depression (admitted to [facility] a few months ago), current smoker w/ 40 pk year smoking history, recurrent UTIs came to the hospital with a chief concern of acute onset of dyspnea associated with dizziness x one day ago likely from acute exacerbation of COPD. At the time of lijalpykv-bpwfdg-crzajfurxol 98.3, pulse rate 75, respirations 16 , blood pressure 99/68 improved to 125/67. Pertinent lab findings: WBC 5.1, hemoglobin 13.8, platelet 276. Sodium 145, potassium 3.5, chloride 108,icarbonate 26. BUN 11, creatinine 0.8. Liver chemistries-AST 22, ALT 30, Alk phos 97. Troponin I-0.01. Urinalysis revealed hazy urine, WBC 5-10, many epithelial cells, bacteria moderate. U tox negative. Chest x-ray revealed unremarkable examination. Etiology in this case for airflow obstruction is likely secondary to emphysema/ chronic bronchitis. Etiology for acute exacerbation is likely infection or continued smoking or seasonal. Differential diagnosis considered at the time of admission-CHF, pneumonia, restrictive lung disease, pleural effusions, acute coronary syndrome. As per mMRC dyspnea scale 3 , the patient falls and possibly Gold criteria-B ( no PFTs done). Problem list: #1 acute exacerbation of COPD #2 history of depression #3 current smoker #4 type 2 diabetes Plan: -Advised the patient to general medicine service -[facility] to monitor for infection -Lower respiratory cultures -supplemental oxygen, if needed. She doesnt use any supplemental oxygen at home. -Maintain oxygen saturation in between 90 to 92%. Today patient was found to desaturate and would require increased from 2 L to 3 L. -monitor for CO2 narcosis, monitor for AMS, clinical tiring.Arterial blood gas, if she has changes in mentation. If she develops hypercarbic respiratory failure ventilator support by an NIPPV might be needed. -CT chest showed a few scattered tiny pulmonary nodules, measuring between 2 and 3 mm. Several of these are associated with airways (likely mucous plugging) with fissures (likely fissural based lymph nodes). No suspicious pulmonary nodule or mass is seen. -Bronchodilator therapy with albuterol and ipratropium. Continue Symbicort. -Transition Solu-Medrol to 40 every 12 from 40 every 8 -Continue doxycycline 100 mg twice a day -Start Acapella as patient is noting that she cannot cough up any sputum and also replace Robitussin with Mucinex as Robitussin did not work -Pulmonology has suggested outpatient pulmonary function tests and sleep study. -Echocardiogram showed impaired left ventricular relaxation and an ejection fraction of greater than 60%. -Consider repeating EKG and troponin if she develops any chest pain. -Smoking cessation counseling, vaccination, avoid triggers. -Urine culture. If she develops any symptoms of UTI, she might need abx. -Urology evaluation as an outpatient -Counseled on medication compliance -Continue Lexapro at this time. -TSH, given her family history of thyroid disorder and weight gain. Normal level. -Accu-Cheks, insulin sliding scale. Consider starting long-acting insulin in the next 24 hours. Hold metformin. Hemoglobin A1c 6.2. Vitamin B12 low, given her complaint of paresthesias upper extremities. Can start supplementation. *Of note low-attenuation masses are seen in the liver and is suggested that these are followed up outpatient with potential MRI. Checklist: 1. DVT prophylaxis-heparin subcutaneous 2. GI prophylaxis-Protonix when necessary 3. Consults: Pulmonology, urology, COPD clinic as an outpatient. 4. Medication reconciliation: Done. Problem List: 1. COPD (chronic obstructive pulmonary disease) Pain Ratin Pain Location: Chest Pain Goal: Pain 4 or less Pain Plan: As needed Tomorrow's Labs & Rationales: cory Barraza MD,[facility] 09/14/17 1053: Attending MD Review Statement Attending Statement Attending MD Statement: examined this patient, discuss w/resident/PA/SECURITY TECHNICIAN, agreed w/resident/PA/SECURITY TECHNICIAN, reviewed EMR data (avail), discussed with nursing, discussed with case mgmt, reviewed images, amended to note Attending Assessment/Plan: Patient seen and examined, still feels short of breath. Now requiring oxygen. She's also coughing and want something for cough. Vital Signs Date Time Temp Pulse Resp B/P B/P Pulse O2 O2 Flow FiO2 Mean Ox Delivery Rate 09/14 0800 94 Nasal 2.0L Cannula 09/14 0600 98.1 54 22 110/70 95 Nasal 2.0L Cannula 09/13 2230 99.0 89 24 118/72 95 07/02 2200 Nasal 2.0L Cannula 09/13 1635 86 22 122/80 94 Nasal 2.0L Cannula 09/13 1600 94 Nasal 2.0L Cannula 09/13 1600 94 Nasal 2.0L Cannula 09/13 1445 97.9 72 25 124/72 92 Nasal 2.0L Cannula / 1225 87 Room Air Room Air on exam; aox,3, nad. cv; s1, s2, rrr resp; mild scattered wheeze b/l abd; soft, nt, bs+ ext: no edema no labs. A/P; 57 y/o F with pmh sig for Asthma, COPD (dx'ed 2011, not on home O2), type 2 diabetes, depression (admitted to [facility] a few months ago), current smoker w/ 40 pk year smoking history, recurrent UTIs admitted with shortness of breath and acute COPD exacerbation/ acute bronchitis. Review the results of echocardiogram. Mild diastolic dysfunction otherwise no other acute issues. Steroids will be reduced to every 12. Will add Mucinex. Will also add Acapella. Patient was started on doxycycline for acute bronchitis. Follow-up on the cultures. Continue TRC nebs, inhalers patient was encouraged to ambulate. DVT plexus: Heparin subcutaneous. Patient will need an outpatient follow-up with pulmonology to get PFTs and other workup for the pulmonary nodules.
--- NOTE | 2017-09-14 07:57 | PN- Pulmonary ---
Subjective HPI/Critical Care Issues: pt seen and examined still with cough feeling better however reproducible mid sternal discomfort on coughing Objective Current Medications: Current Medications Sig/Shahid Start time Last Medication Dose Route Stop Time Status Admin Acetaminophen 650 MG Q8P PRN / 0300 AC 09/14 PO 0736 Albuterol Sulfate 3 ML EVERY 4 HRS/AWAKE / 1200 AC 09/13 INH 2025 Albuterol Sulfate 3 ML Q4H PRN / 0300 DC INH Budesonide/ 2 PUF BID 09/13 0900 AC 09/13 Formoterol Fumarate INH 2046 Doxycycline Hyclate 100 MG BID 07/ 1430 AC 09/13 PO 2214 Escitalopram Oxalate 20 MG DAILY 09/13 0900 AC 09/13 PO 0900 Guaifenesin 10 ML Q4P PRN 09/13 0300 AC 09/14 PO 0743 Heparin Sodium 5,000 UNIT Q8 09/13 0600 AC 09/14 (Porcine) SC 0646 Insulin Aspart 0 TIDAC 09/13 0800 AC 09/13 SC 1226 Ipratropium [place] 2.5 ML EVERY 4 HRS/AWAKE 09/13 1200 AC 09/13 INH 2025 Methylprednisolone 40 MG Q8 09/13 0600 AC 09/14 IV 0646 Nicotine 14 MG DAILY 09/13 0900 AC [facility] Ondansetron HCl 4 MG ONCE ONE 09/13 2099 DC 09/13 PO 09/13 Ramelteon 8 MG ONCE ONE 09/14 1999 DC / PO 09/13 Trazodone HCl 50 MG .STK-MED ONE 09/13 2150 DC PO 09/13 215 Trazodone HCl 50 MG AT BEDTIME PRN 09/13 2100 AC 09/13 PO 2214 Vital Signs & I&O Last 24 Hrs of Vitals and I&O: Vital Signs Date Time Temp Pulse Resp B/P B/P Pulse O2 O2 Flow FiO2 Mean Ox Delivery Rate 09/14 06 98.1 54 22 110/70 95 Nasal 2.0L Cannula 09/13 2230 99.0 89 24 118/72 95 /02 2200 Nasal 2.0L Cannula 09/13 1635 86 22 122/80 94 Nasal 2.0L Cannula 09/13 1600 94 Nasal 2.0L Cannula 09/13 1600 94 Nasal 2.0L Cannula 09/13 1445 97.9 72 25 124/72 92 Nasal 2.0L Cannula 09/13 1225 87 Room Air Room Air 09/13 0916 Room Air Room Air 09/13 0800 94 Room Air Intake & Output 09/14 0800 09/14 0000 09/13 1600 Intake Total 480 1020 720 Output Total Balance 480 1020 720 Intake, Oral 480 1020 720 Patient 193 lb Weight Exam Other Physical Findings: Gen - awake, without distress Head and neck - normocephalic, atraumatic Cardiovascular - S1, S2 Lungs - rare rhonchi b/l Abdomen - bowel sounds positive, soft, non-tender Extremities - without edema Skin - normal skin turgor, no rashes Results Last 24 Hrs of Lab Results: Laboratory Tests 09/13/17 1006: Troponin I < 0.01, Aul-X-Xhoswgfahlz Pept 136 H Impression/Plan Impression/Plan Impression/Plan: Impression 57 year old woman * exacerbation of COPD/mucus pluggnig - tobacco dependence Plan -TRC/Nebs -nicotine replacement/smoking cessation - counseled -reduce solumedrol to 40mg iv q12h -mucolytics -continue symbicort and arrange for outpt rx -outpt PFTs and consideration for a sleep study DVT prophylaxis at all times
[2017-09-14 14:45] VITALS: BP 118/60
[2017-09-14 22:53] VITALS: BP 130/74
[2017-09-15 06:34] VITALS: BP 122/70
--- NOTE | 2017-09-15 08:26 | PN- Housestaff ---
See Addendum Subjective Follow-up For: COPD exacerbation Subjective: Patient seen and examined. She seems in mild distress secondary to her continued chest pain from her cough. She states that she still has not been able to express any mucus. She states that she feels very tired. She continues to have mild wheezing. Patient vitals are stable and she continues on 3 L of oxygen. Review of Systems Constitutional: Reports: no symptoms. EENTM: Reports: no symptoms. Cardiovascular: Reports: chest pain. Respiratory: Reports: cough, short of breath, wheezing. Gastrointestinal: Reports: no symptoms. Genitourinary: Reports: no symptoms. Musculoskeletal: Reports: no symptoms. Skin: Reports: no symptoms. Neurological/Psychological: Reports: no symptoms. Objective Last 24 Hrs of Vital Signs/I&O Vital Signs Date Time Temp Pulse Resp B/P B/P Pulse O2 O2 Flow FiO2 Mean Ox Delivery Rate 09/15 0803 95 Nasal 3.0L Cannula 09/15 0634 98.2 67 20 122/70 93 Nasal 3.0L Cannula 09/15 0000 Nasal 3.0L Cannula 09/14 2253 98.2 75 20 130/74 92 Nasal 3.0L Cannula 09/14 2045 94 Nasal 3.0L Cannula 09/14 1600 93 Nasal 3.0L Cannula 09/14 1445 97.6 78 19 118/60 93 Nasal 3.0L Cannula Intake & Output 09/15 1600 09/15 0800 09/15 0000 Intake Total 120 720 Output Total Balance 120 720 Intake, Oral 120 720 Physical Exam General Appearance: Alert, Oriented X3, Cooperative, Mild Distress Skin: No Rashes, No Breakdown, No Significant Lesion HEENT: Atraumatic, PERRLA, EOMI, Mucous Membr. moist/pink Cardiovascular: Regular Rate, Normal S1, Normal S2, No Murmurs Lungs: patient continues to have mild wheezing throughout Abdomen: Normal Bowel Sounds, Soft, No Tenderness, No Hepatospenomegaly, No Masses Neurological: Normal Speech Extremities: No Clubbing, No Cyanosis, No Edema Vascular: Normal Pulses Current Medications: Current Medications Sig/Shahid Start time Last Medication Dose Route Stop Time Status Admin Acetaminophen 650 MG .STK-MED ONE 09/15 2147 DC PO 09/14 2148 Acetaminophen 650 MG Q8P PRN 09/13 0300 AC 09/14 PO 2149 Acetylcysteine 2 ML BID 09/14 2100 AC 09/14 INH 2042 Albuterol Sulfate 3 ML EVERY 4 HRS/AWAKE 09/13 1200 AC 09/15 INH 0759 Bisacodyl 5 MG ONE ONE 09/15 0915 DC 09/15 PO 09/15 0916 1045 Budesonide/ 2 PUF BID 09/13 0900 AC 09/15 Formoterol Fumarate INH 0817 Cyanocobalamin 250 MCG DAILY 09/14 1600 AC 09/15 PO 0818 Doxycycline Hyclate 100 MG BID 09/13 1430 AC 09/15 PO 0818 Escitalopram Oxalate 20 MG DAILY 09/13 0900 AC 09/15 PO 0818 Guaifenesin 600 MG Q12 09/14 1126 AC 09/15 PO 0818 Heparin Sodium 5,000 UNIT Q8 09/13 0600 AC 09/15 (Porcine) SC 0506 Ibuprofen 600 MG ONCE ONE 09/14 1350 DC 09/14 PO 09/14 1351 1357 Insulin Aspart 0 TIDAC 09/13 0800 AC 09/14 SC 1735 Ipratropium Cascade 2.5 ML EVERY 4 HRS/AWAKE 09/13 1200 DC 09/14 INH 1127 Methylprednisolone 40 MG BID 09/14 0900 AC 09/15 IV 0817 Nicotine 14 MG DAILY 09/13 0900 AC TOP Trazodone HCl 50 MG AT BEDTIME PRN 09/13 2100 AC 09/13 PO 2214 Assessment/Plan Assessment: Ms Robles is a 57 year old woman w/ a PMHx of Asthma, COPD (dx'ed 2011, not on home O2), type 2 diabetes, depression (admitted to [facility] a few months ago), current smoker w/ 40 pk year smoking history, recurrent UTIs came to the hospital with a chief concern of acute onset of dyspnea associated with dizziness x one day ago likely from acute exacerbation of COPD. At the time of [id number] 98.3, pulse rate 75, respirations 16 , blood pressure 99/68 improved to 125/67. Pertinent lab findings: WBC 5.1, hemoglobin 13.8, platelet 276. Sodium 145, potassium 3.5, chloride 108,icarbonate 26. BUN 11, creatinine 0.8. Liver chemistries-AST 22, ALT 30, Alk phos 97. Troponin I-0.01. Urinalysis revealed hazy urine, WBC 5-10, many epithelial cells, bacteria moderate. U tox negative. Chest x-ray revealed unremarkable examination. Etiology in this case for airflow obstruction is likely secondary to emphysema/ chronic bronchitis. Etiology for acute exacerbation is likely infection or continued smoking or seasonal. Differential diagnosis considered at the time of admission-CHF, pneumonia, restrictive lung disease, pleural effusions, acute coronary syndrome. As per mMRC dyspnea scale 3 , the patient falls and possibly Gold criteria-B ( no PFTs done). Problem list: #1 acute exacerbation of COPD #2 history of depression #3 current smoker #4 type 2 diabetes Plan: -Continue to follow patient to general medicine service -Lower respiratory cultures and sputum is able to be produced -Maintain oxygen saturation in between 90 to 92% at least. He is currently on 3 L of oxygen -Monitor for AMS, clinical tiring.Arterial blood gas, if she has changes in mentation. If she develops hypercarbic respiratory failure ventilator support by an NIPPV might be needed. -CT chest showed a few scattered tiny pulmonary nodules, measuring between 2 and 3 mm. Several of these are associated with airways (likely mucous plugging) with fissures (likely fissural based lymph nodes). No suspicious pulmonary nodule or mass is seen. Patient is concerned about these nodules and she has been encouraged to follow-up with Dr. Loza. -Bronchodilator therapy with albuterol and ipratropium. Continue Symbicort. -Patient is currently on Solu-Medrol 40 mg twice a day but continues to have wheezing throughout. -Continue doxycycline 100 mg twice a day -Continue Acapella as patient is noting that she cannot cough up any sputum and we replaced Robitussin with Mucinex yesterday, patient's still not able to cough up any phlegm -Pulmonology has suggested outpatient pulmonary function tests and sleep study. -Echocardiogram showed impaired left ventricular relaxation and an ejection fraction of greater than 60%. -Consider repeating EKG and troponin if she develops any chest pain. -Smoking cessation counseling, vaccination, avoid triggers. -Urine culture. If she develops any symptoms of UTI, she might need abx. -Urology evaluation as an outpatient as patient has continuous UTIs for her outpouching of bladder, previously evaluated by an [id number] urologist with patient lost to follow-up. -Counseled on medication compliance -Continue Lexapro at this time. -TSH, given her family history of thyroid disorder and weight gain. Normal level. -Accu-Cheks, insulin sliding scale. Consider starting long-acting insulin in the next 24 hours. Hold metformin. Hemoglobin A1c 6.2. Vitamin B12 low, given her complaint of paresthesias upper extremities. Can start supplementation. *Of note low-attenuation masses are seen in the liver and is suggested that these are followed up outpatient with potential MRI. DVT prophylaxis with Alps and subcutaneous heparin Full code regular diet Problem List: 1. COPD (chronic obstructive pulmonary disease) Pain Ratin Pain Location: Chest Pain Goal: Pain 4 or less Pain Plan: As needed Tomorrow's Labs & Rationales: na
--- NOTE | 2017-09-15 11:35 | PN- Pulmonary ---
Subjective HPI/Critical Care Issues: pt seen and examined feeling better however still wheezing still requiring oxygen Objective Current Medications: Current Medications Sig/Shahid Start time Last Medication Dose Route Stop Time Status Admin Acetaminophen 650 MG .STK-MED ONE 09/15 2147 DC PO 09/14 2148 Acetaminophen 650 MG Q8P PRN 09/13 0300 AC 09/14 PO 2149 Acetylcysteine 2 ML BID 09/14 2100 AC 09/14 INH 2042 Albuterol Sulfate 3 ML EVERY 4 HRS/AWAKE 09/13 1200 AC 09/15 INH 0759 Bisacodyl 5 MG ONE ONE 09/15 0915 DC 09/15 PO 09/15 0916 1045 Budesonide/ 2 PUF BID 09/13 0900 AC 09/15 Formoterol Fumarate INH 0817 Cyanocobalamin 250 MCG DAILY 09/14 1600 AC 09/15 PO 0818 Doxycycline Hyclate 100 MG BID 09/13 1430 AC 09/15 PO 0818 Escitalopram Oxalate 20 MG DAILY 09/13 0900 AC 09/15 PO 0818 Guaifenesin 600 MG Q12 09/14 1126 AC 09/15 PO 0818 Heparin Sodium 5,000 UNIT Q8 09/13 0600 AC 09/15 (Porcine) SC 0506 Ibuprofen 600 MG ONCE ONE 09/14 1350 DC 09/14 PO 09/14 1351 1357 Insulin Aspart 0 TIDAC 09/13 0800 AC 09/14 SC 1735 Ipratropium Bishop 2.5 ML EVERY 4 HRS/AWAKE 09/13 1200 DC 09/14 INH 1127 Methylprednisolone 40 MG BID 09/14 0900 AC 09/15 IV 0817 Nicotine 14 MG DAILY 09/13 0900 AC TOP Trazodone HCl 50 MG AT BEDTIME PRN 09/13 2100 AC 09/13 PO 2214 Vital Signs & I&O Last 24 Hrs of Vitals and I&O: Vital Signs Date Time Temp Pulse Resp B/P B/P Pulse O2 O2 Flow FiO2 Mean Ox Delivery Rate 09/15 0803 95 Nasal 3.0L Cannula 09/15 0634 98.2 67 20 122/70 93 Nasal 3.0L Cannula 09/15 0000 Nasal 3.0L Cannula 09/14 2253 98.2 75 20 130/74 92 Nasal 3.0L Cannula 09/14 2045 94 Nasal 3.0L Cannula 09/14 1600 93 Nasal 3.0L Cannula 09/14 1445 97.6 78 19 118/60 93 Nasal 3.0L Cannula Intake & Output 09/15 1600 09/15 0800 09/15 0000 Intake Total 120 720 Output Total Balance 120 720 Intake, Oral 120 720 Exam Other Physical Findings: Gen - awake, without distress Head and neck - normocephalic, atraumatic Cardiovascular - S1, S2 Lungs - improved wheezing Abdomen - bowel sounds positive, soft, non-tender Extremities - without edema Impression/Plan Impression/Plan Impression/Plan: Impression 57 year old woman * exacerbation of COPD/mucus pluggnig - tobacco dependence Plan -TRC/Nebs -nicotine replacement/smoking cessation - counseled -continue solumedrol to 40mg iv q12h - plan to taper tomorrow if doing well -mucolytics -continue symbicort and arrange for outpt rx -outpt PFTs and consideration for a sleep study DVT prophylaxis at all times
[2017-09-15 13:40] VITALS: BP 130/90
[2017-09-15 22:47] VITALS: BP 150/70
[2017-09-15 22:57] VITALS: BP 126/82
[2017-09-16 07:07] VITALS: BP 120/76
--- NOTE | 2017-09-16 07:46 | PN- Housestaff ---
Gabby VILLARREAL,Norma 09/16/17 0745: Subjective Follow-up For: COPD exacerbation Current smoker Subjective: Patient seen and examined. She states that today she is feeling better, still has chest pain from coughing. We attempted to wean the patient off oxygen as she is on 3 L this morning at 95% oxygen saturation. We brought patient down to 2 L and then tried to taper to room air but the patient desaturated to 83% so we put her back on 2 L. The patient states that she still feels constipated after receiving Dulcolax yesterday. The patient is concerned about returning to her home where many smokers live and she feels that she will be tempted to smoke. Review of Systems Constitutional: Reports: no symptoms. Cardiovascular: Reports: chest pain. Respiratory: Reports: short of breath, wheezing. Gastrointestinal: Reports: no symptoms. Genitourinary: Reports: no symptoms. Musculoskeletal: Reports: no symptoms. Objective Last 24 Hrs of Vital Signs/I&O Vital Signs Date Time Temp Pulse Resp B/P B/P Pulse O2 O2 Flow FiO2 Mean Ox Delivery Rate 09/16 0859 92 Nasal 2.0L Cannula 09/16 0855 83 Room Air Room Air 09/16 08 92 Nasal 2.0L Cannula 09/16 0800 97 Nasal 2.0L Cannula 09/16 0707 98.0 51 18 120/76 95 / 0000 Nasal 3.0L Cannula 09/15 2257 62 126/82 09/15 2247 98.0 64 17 150/70 93 Nasal 3.0L Cannula 09/15 1600 92 Nasal 3.0L Cannula 09/15 1600 93 Nasal 3.0L Cannula 09/15 1340 98.5 72 20 130/90 92 Nasal 3.0L Cannula Intake & Output 09/16 1600 09/16 0800 09/16 0000 Intake Total 600 Output Total 450 Balance 150 Intake, Oral 600 Output, Urine 450 Physical Exam General Appearance: Alert, Oriented X3, Cooperative, No Acute Distress HEENT: Atraumatic, EOMI, Mucous Membr. moist/pink Cardiovascular: Regular Rate, Normal S1, Normal S2, No Murmurs Lungs: very mild wheezing in upper lung lobes Abdomen: Normal Bowel Sounds, Soft, No Tenderness Extremities: No Clubbing, No Cyanosis, No Edema, Normal Pulses, No Tenderness/ Swelling Current Medications: Current Medications Sig/Shahid Start time Last Medication Dose Route Stop Time Status Admin Acetaminophen 650 MG Q8P PRN 09/13 0300 AC 09/14 PO 2149 Acetylcysteine 2 ML BID 09/14 2100 AC 09/16 INH 0803 Albuterol Sulfate 3 ML EVERY 4 HRS/AWAKE 09/13 1200 AC 09/16 INH 0803 Budesonide/ 2 PUF BID 09/13 0900 AC 09/16 Formoterol Fumarate INH 0822 Cyanocobalamin 250 MCG DAILY 09/14 1600 AC 09/16 PO 0823 Doxycycline Hyclate 100 MG BID 09/13 1430 AC 09/16 PO 0823 Escitalopram Oxalate 20 MG DAILY 09/13 0900 AC 09/16 PO 0823 Guaifenesin 600 MG Q12 09/14 1126 AC 09/16 PO 0823 Heparin Sodium 5,000 UNIT Q8 09/13 0600 AC 09/16 (Porcine) SC 0518 Insulin Aspart 0 TIDAC 09/13 0800 AC 09/15 SC 1706 Methylprednisolone 20 MG ONCE ONE 09/16 2100 AC IV 09/16 210 Methylprednisolone 40 MG BID 09/14 0900 DC 09/16 IV 0823 Nicotine 14 MG DAILY 09/13 09 AC TOP Polyethylene Glycol 17 GM DAILY 09/16 1000 AC PO Prednisone 60 MG DAILY 09/17 09 DC PO Prednisone 40 MG DAILY 09/17 09 AC PO Senna/Docusate Sodium 1 TAB BID 09/16 1000 AC PO Trazodone HCl 50 MG AT BEDTIME PRN 09/13 2100 AC 09/16 PO 0148 Assessment/Plan Assessment: Ms Robles is a 57 year old woman w/ a PMHx of Asthma, COPD (dx'ed 2011, not on home O2), type 2 diabetes, depression (admitted to [facility] a few months ago), current smoker w/ 40 pk year smoking history, recurrent UTIs came to the hospital with a chief concern of acute onset of dyspnea associated with dizziness x one day ago likely from acute exacerbation of COPD. At the time of [id number] 98.3, pulse rate 75, respirations 16 , blood pressure 99/68 improved to 125/67. Pertinent lab findings: WBC 5.1, hemoglobin 13.8, platelet 276. Sodium 145, potassium 3.5, chloride 108,icarbonate 26. BUN 11, creatinine 0.8. Liver chemistries-AST 22, ALT 30, Alk phos 97. Troponin I-0.01. Urinalysis revealed hazy urine, WBC 5-10, many epithelial cells, bacteria moderate. U tox negative. Chest x-ray revealed unremarkable examination. Etiology in this case for airflow obstruction is likely secondary to emphysema/ chronic bronchitis. Etiology for acute exacerbation is likely infection or continued smoking or seasonal. Differential diagnosis considered at the time of admission-CHF, pneumonia, restrictive lung disease, pleural effusions, acute coronary syndrome. As per mMRC dyspnea scale 3 , the patient falls and possibly Gold criteria-B ( no PFTs done). Problem list: #1 acute exacerbation of COPD #2 history of depression #3 current smoker #4 type 2 diabetes Plan: -Continue to follow patient to general medicine service -Lower respiratory cultures when sputum is able to be produced -Maintain oxygen saturation in between 90 to 92% at least. She is currently on 2 L of oxygen. We will maintain her on this today as she desaturated to 83% on room air. We will attempt to taper again tomorrow. -Monitor for AMS, clinical tiring.Arterial blood gas, if she has changes in mentation. If she develops hypercarbic respiratory failure ventilator support by an NIPPV might be needed. -CT chest showed a few scattered tiny pulmonary nodules, measuring between 2 and 3 mm. Several of these are associated with airways (likely mucous plugging) with fissures (likely fissural based lymph nodes). No suspicious pulmonary nodule or mass is seen. Patient is concerned about these nodules and she has been encouraged to follow-up with Dr. Loza. -Bronchodilator therapy with albuterol and ipratropium. Continue Symbicort. -We will stop Solu-Medrol today and start oral prednisone 40 mg for 2 days followed by 30 mg for 2 days, 20 mg for 2 days 10 mg for 2 days and then 5 mg for 2 days and then stop. -Continue doxycycline 100 mg twice a day -Continue Acapella as patient is noting that she cannot cough up any sputum and we replaced Robitussin with Mucinex yesterday, patient's still not able to cough up any phlegm -Pulmonology has suggested outpatient pulmonary function tests and sleep study. -Echocardiogram showed impaired left ventricular relaxation and an ejection fraction of greater than 60%. -Consider repeating EKG and troponin if she develops any chest pain. -Smoking cessation counseling, vaccination, avoid triggers. Patient states that she is worried to return to her home as there are several others that smoke there and she does not be tempted to smoke anymore. She is asking for rehabilitation placement as well for her breathing which we will attempt to accommodate with case management. -Urine culture clear so far. If she develops any symptoms of UTI, she might need abx. -Urology evaluation as an outpatient as patient has continuous UTIs for her outpouching of bladder, previously evaluated by an [id number] urologist with patient lost to follow-up. -Patient states she is constipated so we will order bowel regimen -Counseled on medication compliance -Continue Lexapro at this time. -TSH, given her family history of thyroid disorder and weight gain. Normal level. -Accu-Cheks, insulin sliding scale. Consider starting long-acting insulin in the next 24 hours. Hold metformin. Hemoglobin A1c 6.2. Vitamin B12 low, given her complaint of paresthesias upper extremities. Can start supplementation. *Of note low-attenuation masses are seen in the liver and is suggested that these are followed up outpatient with potential MRI. DVT prophylaxis with Alps and subcutaneous heparin Full code regular diet Problem List: 1. COPD (chronic obstructive pulmonary disease) Pain Ratin Pain Location: Chest Pain Goal: Pain 4 or less Pain Plan: As needed Tomorrow's Labs & Rationales: INDIA Barraza MD,[facility] 09/16/17 1122: Attending MD Review Statement Attending Statement Attending MD Statement: examined this patient, discuss w/resident/PA/CHANGE MANAGEMENT MANAGER, agreed w/resident/PA/CHANGE MANAGEMENT MANAGER, reviewed EMR data (avail), discussed with nursing, discussed with case mgmt, reviewed images, amended to note Attending Assessment/Plan: Patient seen and examined, overall doing better today. Breathing has eased up and oxygen requirement is also improved. Vital Signs Date Time Temp Pulse Resp B/P B/P Pulse O2 O2 Flow FiO2 Mean Ox Delivery Rate 09/16 1104 Nasal 2.0L Cannula 09/16 0859 92 Nasal 2.0L Cannula 09/16 0855 83 Room Air Room Air 09/16 0800 92 Nasal 2.0L Cannula 09/16 0800 97 Nasal 2.0L Cannula 09/16 0707 98.0 51 18 120/76 95 09/16 0000 Nasal 3.0L Cannula 09/15 2257 62 126/82 09/15 2247 98.0 64 17 150/70 93 Nasal 3.0L Cannula 09/15 1600 92 Nasal 3.0L Cannula 09/15 1600 93 Nasal 3.0L Cannula 09/15 1340 98.5 72 20 130/90 92 Nasal 3.0L Cannula on exam; aox3, nad. cv; s1,s2, rrr resp; decreased bs overall. much improved than before. abd; soft, nt, bs+ ext; no edema no labs. A/P; 57 y/o F with pmh sig for Asthma, COPD (dx'ed 2011, not on home O2), type 2 diabetes, depression (admitted to [facility] a few months ago), current smoker w/ 40 pk year smoking history, recurrent UTIs admitted with shortness of breath and acute COPD exacerbation/ acute bronchitis. Overall improving slowly but still requiring oxygen. Unfortunately cannot go home with oxygen because of active smoking at home by other people. Will benefit by going to rehab. We will switch her to oral prednisone and taper as recommended by pulmonology. Will complete a total of 7 day course of doxy. Continue other current meds and TRC nebs. DVT px; Hep sq. If bed available. likely discharge to [facility] tomorrow.
--- NOTE | 2017-09-16 10:09 | PN- Pulmonary ---
Subjective HPI/Critical Care Issues: pt seen and examined doing much better today off o2 at rest reduced wheezing Objective Current Medications: Current Medications Sig/Shahid Start time Last Medication Dose Route Stop Time Status Admin Acetaminophen 650 MG Q8P PRN 09/13 0300 AC 09/14 PO 2149 Acetylcysteine 2 ML BID 09/14 2100 AC 09/16 INH 0803 Albuterol Sulfate 3 ML EVERY 4 HRS/AWAKE 09/13 1200 AC 09/16 INH 0803 Budesonide/ 2 PUF BID 09/13 0900 AC 09/16 Formoterol Fumarate INH 0822 Cyanocobalamin 250 MCG DAILY 09/14 1600 AC 09/16 PO 0823 Doxycycline Hyclate 100 MG BID 09/13 1430 AC 09/16 PO 0823 Escitalopram Oxalate 20 MG DAILY 09/13 0900 AC 09/16 PO 0823 Guaifenesin 600 MG Q12 09/14 1126 AC 09/16 PO 0823 Heparin Sodium 5,000 UNIT Q8 09/13 06 AC 09/16 (Porcine) SC 0518 Insulin Aspart 0 TIDAC 09/13 08 AC 09/15 SC 1706 Methylprednisolone 20 MG ONCE ONE 09/16 2100 AC IV 09/16 2101 Methylprednisolone 40 MG BID 09/14 0900 DC 09/16 IV 0823 Nicotine 14 MG DAILY 09/13 09 AC TOP Polyethylene Glycol 17 GM DAILY 09/16 1000 AC PO Prednisone 60 MG DAILY 09/17 09 AC PO Senna/Docusate Sodium 1 TAB BID 09/16 1000 AC PO Trazodone HCl 50 MG AT BEDTIME PRN 09/13 2100 AC 09/16 PO 0148 Vital Signs & I&O Last 24 Hrs of Vitals and I&O: Vital Signs Date Time Temp Pulse Resp B/P B/P Pulse O2 O2 Flow FiO2 Mean Ox Delivery Rate 09/17 0759 92 Nasal 2.0L Cannula 09/16 0855 83 Room Air Room Air 09/17 799 92 Nasal 2.0L Cannula 09/16 08 97 Nasal 2.0L Cannula 09/16 07 98.0 51 18 120/76 95 07/05 0000 Nasal 3.0L Cannula 09/15 2257 62 126/82 09/15 2247 98.0 64 17 150/70 93 Nasal 3.0L Cannula 09/15 1600 92 Nasal 3.0L Cannula 09/15 1600 93 Nasal 3.0L Cannula 09/15 1340 98.5 72 20 130/90 92 Nasal 3.0L Cannula Intake & Output 09/16 1600 09/16 0800 07 0000 Intake Total 600 Output Total 450 Balance 150 Intake, Oral 600 Output, Urine 450 Exam Other Physical Findings: Gen - awake, without distress Head and neck - normocephalic, atraumatic Cardiovascular - S1, S2 Lungs - significantly improved wheezing Abdomen - bowel sounds positive, soft, non-tender Extremities - without edema Impression/Plan Impression/Plan Impression/Plan: Impression 57 year old woman * exacerbation of COPD/mucus pluggnig - tobacco dependence Plan -assess exertional o2 needs -TRC/Nebs -nicotine replacement/smoking cessation - counseled -dc solumedrol today and begin prednisone 40mg x 3 days, 30x3, 20x3, 10x3, then stop -mucolytics -continue symbicort and arrange for outpt rx -outpt PFTs and consideration for a sleep study DVT prophylaxis at all times
[2017-09-16 14:04] VITALS: BP 130/86
[2017-09-16 21:48] VITALS: BP 130/68
[2017-09-17 06:14] VITALS: BP 134/80
--- NOTE | 2017-09-17 07:23 | PN- Housestaff ---
Subjective Follow-up For: COPD exacerbation Current smoker Lung nodules Liver lesions Diabetes Morbid obesity Subjective: Patient seen and examined. She states that she feels frustrated from not being completely better but does note that she feels improved since yesterday. She has been ambulating sufficiently. The patient continues to have a cough with associated chest pain although notes that this has been resolving as well. Today the patient's oxygen requirement increased from 2 L to 2.5 L. The patient notes that she has not had a bowel movement in over 3 days. Review of Systems Constitutional: Reports: no symptoms. EENTM: Reports: no symptoms. Cardiovascular: Reports: chest pain. Respiratory: Reports: cough, short of breath. Gastrointestinal: Reports: no symptoms. Genitourinary: Reports: no symptoms. Musculoskeletal: Reports: no symptoms. Skin: Reports: no symptoms. Neurological/Psychological: Reports: no symptoms. Hematologic/Endocrine: Reports: no symptoms. Objective Last 24 Hrs of Vital Signs/I&O Vital Signs Date Time Temp Pulse Resp B/P B/P Pulse O2 O2 Flow FiO2 Mean Ox Delivery Rate 09/17 1354 98.1 77 18 110/70 90 Nasal 2.5L Cannula 09/17 1125 97.7 60 20 134/80 07/ 0902 90 Nasal 2.5L Cannula 09/17 0800 93 Nasal 2.5L Cannula 09/17 0800 93 Nasal 2.5L Cannula 09/17 0614 97.7 50 20 134/80 93 / 0049 93 Nasal 2.5L Cannula 09/17 0000 93 Nasal 2.5L Cannula 09/17 0000 93 Nasal 2.5L Cannula 09/16 2148 98.1 69 18 130/68 90 / 1605 89 Nasal 2.0L Cannula 09/16 1600 93 Nasal 2.5L Cannula Intake & Output 09/17 1600 /06 0800 07/06 0000 Intake Total 1250 800 Output Total Balance 1250 800 Intake, Oral 1250 800 Physical Exam General Appearance: Alert, Oriented X3, Cooperative, No Acute Distress Skin: No Rashes, No Breakdown, No Significant Lesion Skin Temp/Moisture Exam: Warm/Dry Sepsis Skin Exam (color): Normal for Ethnicity HEENT: Atraumatic, EOMI, Mucous Membr. moist/pink Cardiovascular: Regular Rate, Normal S1, Normal S2, No Murmurs Lungs: Clear to Auscultation, Normal Air Movement Abdomen: Normal Bowel Sounds, Soft, No Tenderness Neurological: Normal Speech Extremities: No Clubbing, No Cyanosis, No Edema, Normal Pulses, No Tenderness/ Swelling Vascular: Normal Pulses, Pulses Symmetrical Current Medications: Current Medications Sig/Shahid Start time Last Medication Dose Route Stop Time Status Admin Acetaminophen 650 MG Q8P PRN 09/13 0300 AC 07 PO 2149 Acetylcysteine 2 ML BID 09/14 2100 AC 09/17 INH 0900 Albuterol Sulfate 3 ML EVERY 4 HRS/AWAKE 09/13 1200 AC 09/17 INH 1230 Bisacodyl 10 MG .STK-MED ONE 09/17 1418 DC MT 09/17 1419 Bisacodyl 10 MG ONCE ONE 09/17 1000 DC 09/17 MT 09/17 1001 0950 Budesonide/ 2 PUF BID 09/13 0900 AC 09/17 Formoterol Fumarate INH 0848 Cyanocobalamin 250 MCG DAILY 09/14 1600 AC 09/17 PO 0848 Doxycycline Hyclate 100 MG BID 09/13 1430 AC 09/17 PO 0849 Escitalopram Oxalate 20 MG DAILY 09/13 0900 AC 09/17 PO 0848 Guaifenesin 600 MG Q12 09/14 1126 AC 09/17 PO 0849 Heparin Sodium 5,000 UNIT Q8 09/13 0600 AC 09/17 (Porcine) SC 1342 Insulin Aspart 0 TIDAC 09/13 0800 AC 09/16 SC 1157 Magnesium Hydroxide 30 ML ONE ONE 09/17 1400 DC 09/17 PO 09/17 1401 1402 Nicotine 14 MG DAILY 09/13 09 [facility] Polyethylene Glycol 17 GM DAILY 09/16 1000 AC 09/17 PO 0849 Prednisone 40 MG DAILY 09/17 0900 AC 09/17 PO 0850 Senna/Docusate Sodium 1 TAB BID 09/16 1000 AC 09/17 PO 0849 Sodium Phosphate 1 UNIT ONCE ONE 09/17 1230 DC 09/17 MT 09/17 1231 1242 Trazodone HCl 50 MG .STK-MED ONE 09/17 0224 DC PO 09/17 0225 Trazodone HCl 50 MG AT BEDTIME PRN 09/13 2100 AC 09/17 PO 0225 Assessment/Plan Assessment: Ms Robles is a 57 year old woman w/ a PMHx of Asthma, COPD (dx'ed 2012, not on home O2), type 2 diabetes, depression (admitted to [facility] a few months ago), current smoker w/ 40 pk year smoking history, recurrent UTIs came to the hospital with a chief concern of acute onset of dyspnea associated with dizziness x one day ago likely from acute exacerbation of COPD. At the time of [id number]-[id number] 98.3, pulse rate 75, respirations 16 , blood pressure 99/68 improved to 125/67. Pertinent lab findings: WBC 5.1, hemoglobin 13.8, platelet 276. Sodium 145, potassium 3.5, chloride 108,icarbonate 26. BUN 11, creatinine 0.8. Liver chemistries-AST 22, ALT 30, Alk phos 97. Troponin I-0.01. Urinalysis revealed hazy urine, WBC 5-10, many epithelial cells, bacteria moderate. U tox negative. Chest x-ray revealed unremarkable examination. Etiology in this case for airflow obstruction is likely secondary to emphysema/ chronic bronchitis. Etiology for acute exacerbation is likely infection or continued smoking or seasonal. Differential diagnosis considered at the time of admission-CHF, pneumonia, restrictive lung disease, pleural effusions, acute coronary syndrome. As per mMRC dyspnea scale 3 , the patient falls and possibly Gold criteria-B ( no PFTs done). Problem list: #1 acute exacerbation of COPD #2 history of depression #3 current smoker #4 type 2 diabetes #5 lung nodules #6 liver lesions #7 Morbid obesity Plan: -Patient is stable today for discharge to short-term rehab. -Maintain oxygen saturation in between 90 to 92% at least. She is currently on 2.5 L of oxygen. We will maintain her on this today as she desaturated to 83% on room air. We will discharge her to short-term rehab where she will receive oxygen as needed. -Monitor for AMS, clinical tiring, arterial blood gas, if she has changes in mentation. If she develops hypercarbic respiratory failure ventilator support by an NIPPV might be needed. -CT chest showed a few scattered tiny pulmonary nodules, measuring between 2 and 3 mm. Several of these are associated with airways (likely mucous plugging) with fissures (likely fissural based lymph nodes). No suspicious pulmonary nodule or mass is seen. Patient is concerned about these nodules and she has been encouraged to follow-up with Dr. Loza. -Bronchodilator therapy with albuterol and ipratropium. Continue Symbicort. -We will continue oral prednisone 40 mg for 1 more day followed by 30 mg for 2 days, 20 mg for 2 days 10 mg for 2 days and then 5 mg for 2 days and then stop. -Continue doxycycline 100 mg twice a day for total 7 days of treatment as patient is allergic to erythromycin base and cannot receive azithromycin -Continue Acapella as patient is noting that she cannot cough up any sputum and we replaced Robitussin with Mucinex, patient's still not able to cough up any phlegm -Pulmonology has suggested outpatient pulmonary function tests and sleep study. -Echocardiogram showed impaired left ventricular relaxation and an ejection fraction of greater than 60%. -Smoking cessation counseling, vaccination, avoid triggers. Patient states that she is worried to return to her home as there are several others that smoke there and she does not be tempted to smoke anymore. She is asking for rehabilitation placement as well for her breathing which we will attempt to accommodate with case management. -Urine culture clear so far. If she develops any symptoms of UTI, she might need abx. -Urology evaluation as an outpatient as patient has continuous UTIs for her outpouching of bladder, previously evaluated by an [id number] urologist with patient lost to follow-up. -Patient will not be able to be discharged to short-term rehab unless she has a bowel movement, bowel regimen has been ordered along with Dulcolax suppository and Fleet enema. -Counseled on medication compliance -Continue Lexapro at this time. -TSH, given her family history of thyroid disorder and weight gain. Normal level. -Accu-Cheks, insulin sliding scale. Consider starting long-acting insulin in the next 24 hours. Hold metformin. Hemoglobin A1c 6.2. Vitamin B12 low, given her complaint of paresthesias upper extremities. Can start supplementation. *Of note low-attenuation masses are seen in the liver and is suggested that these are followed up outpatient with potential MRI. DVT prophylaxis with Alps and subcutaneous heparin Full code regular diet Problem List: 1. COPD (chronic obstructive pulmonary disease) Pain Ratin Pain Location: Chest Pain Goal: Pain 4 or less Pain Plan: As needed Tomorrow's Labs & Rationales: NA
[2017-09-17] MEDS ORDERED: PREDNISONE10 M2 PO (07:33)
[2017-09-17] MEDS ORDERED: DOXYCYCLINE HY100 M2 PO (07:33)
[2017-09-17] MEDS ORDERED: GUAIFENESIN ER600 MG PO (07:33)
[2017-09-17] MEDS ORDERED: NICOTINE PATCH1 EAC2 TOP (07:33)
--- NOTE | 2017-09-17 07:37 | Patient Discharge Instructions ---
Discharge Instructions General Discharge Information You were seen/treated for: COPD exacerbation Special Instructions: 1. follow up with PCP in one week. please follow up with him/her on potential liver cysts and further evaluation. 2. follow up with Dr. Loza for PFTs, sleep study, and further evaluation of lung nodules. 3. follow up with Dr. Sanchez urologist for urinary issues 4. take all medications as directed Diet Continue normal diet: Yes Activity Full Activity/No Limits: Yes Acute Coronary Syndrome Inclusion Criteria At DC or during hospital stay patient has or had the following: ACS DIAGNOSIS No Discharge Core Measures Meds if any: Prescribed or Continued at Discharge Meds if any: NOT Prescribed or Continued at Discharge Congestive Heart Failure Inclusion Criteria At DC or during hospital stay patient has or had the following: CHF DIAGNOSIS No Discharge Core Measures Meds if any: Prescribed or Continued at Discharge Meds if any: NOT Prescribed or Continued at Discharge Cerebrovascular accident Inclusion Criteria At DC or during hospital stay patient has or had the following: CVA/TIA Diagnosis No Discharge Core Measures Meds if any: Prescribed or Continued at Discharge Meds if any: NOT Prescribed or Continued at Discharge Venous thromboembolism Inclusion Criteria VTE Diagnosis No VTE Type NONE VTE Confirmed by (Test) NONE Discharge Core Measures - Per Current guidelines, there needs to be overlap - treatment for the first 5 days of Warfarin therapy. - If discharged on Warfarin prior to 5 days of - overlap therapy, the patient will need to be - assessed for post discharge needs including - *Post discharge parental anticoagulation - *Warfarin and/or parental anticoagulation education - *Follow up date to check INR post discharge At least 5 days overlap therapy as Inpatient No Meds if any: Prescribed or Continued at Discharge Note: Overlap Therapy is Warfarin and Anticoagulant Meds if any: NOT Prescribed or Continued at Discharge
--- NOTE | 2017-09-17 08:04 | PN- Pulmonary ---
Subjective HPI/Critical Care Issues: Patient feels improved but is concerned about going home in view of active smoking in the home Objective Current Medications: Current Medications Sig/Shahid Start time Last Medication Dose Route Stop Time Status Admin Acetaminophen 650 MG Q8P PRN 09/13 0300 AC 09/14 PO 2149 Acetylcysteine 2 ML BID 09/14 2100 AC 09/16 INH 2009 Albuterol Sulfate 3 ML EVERY 4 HRS/AWAKE 09/13 1200 AC 09/16 INH 2009 Budesonide/ 2 PUF BID 09/13 0900 AC 09/16 Formoterol Fumarate INH 204 Cyanocobalamin 250 MCG DAILY 09/14 1600 AC 09/16 PO 0823 Doxycycline Hyclate 100 MG BID 09/13 1430 AC 09/16 PO 204 Escitalopram Oxalate 20 MG DAILY 09/13 0900 AC 09/16 PO 0823 Guaifenesin 600 MG Q12 09/14 1126 AC 09/16 PO 204 Heparin Sodium 5,000 UNIT Q8 09/13 0600 AC 09/17 (Porcine) SC 0519 Insulin Aspart 0 TIDAC 09/13 0800 AC 09/16 SC 1157 Methylprednisolone 20 MG ONCE ONE 09/16 2100 CAN IV 09/16 210 Methylprednisolone 40 MG BID 09/14 0900 DC 09/16 IV 0823 Nicotine 14 MG DAILY 09/13 09 AC TOP Polyethylene Glycol 17 GM DAILY 09/16 1000 AC 09/16 PO 1156 Prednisone 60 MG DAILY 09/17 09 DC PO Prednisone 40 MG DAILY 09/17 0900 AC PO Senna/Docusate Sodium 1 TAB BID 09/16 1000 AC 09/16 PO 204 Trazodone HCl 50 MG AT BEDTIME PRN 09/13 2100 AC 09/17 PO 0225 Vital Signs & I&O Last 24 Hrs of Vitals and I&O: Vital Signs Date Time Temp Pulse Resp B/P B/P Pulse O2 O2 Flow FiO2 Mean Ox Delivery Rate 09/17 613 97.7 50 20 134/80 93 09/17 0049 93 Nasal 2.5L Cannula 09/17 0000 93 Nasal 2.5L Cannula 09/17 0000 93 Nasal 2.5L Cannula 09/168 98.1 69 18 130/68 90 09/16 1605 89 Nasal 2.0L Cannula 09/16 1600 93 Nasal 2.5L Cannula 09/16 1404 98.1 61 16 130/86 92 Nasal 3.0L Cannula 09/16 1104 Nasal 2.0L Cannula 09/16 0859 92 Nasal 2.0L Cannula 09/16 0855 83 Room Air Room Air Intake & Output 09/17 1600 09/17 0800 09/17 0000 Intake Total 800 Output Total Balance 800 Intake, Oral 800 Since saturation 2.5 L 93% exam for chest shows diminished breath sounds are no wheezes cardiac exam shows a regular S1 and S2 without murmurs Impression/Plan Impression/Plan Impression/Plan: 57-year-old admitted with exacerbation of COPD clinically improved but remains oxygen dependent likely need oxygen at discharge Recommendations: Continue slow prednisone taper. Agent being considered for short-term rehabilitation for pulmonary rehabilitation. She was again counseled regarding the smoking cessation. She should be seen in the office for outpatient pulmonary function tests and sleep study
--- NOTE | 2017-09-17 09:49 | Discharge Summary ---
Visit Information Visit Dates Admission Date: 09/13/17 Discharge Date: 09/17/17 Hospital Course Course Attending Physician: Concetta Barraza MD Primary Care Physician: Teagan VILLARREAL,Teagan [facility] Course: Ms Robles is a 57 year old woman w/ a PMHx of Asthma, COPD (dx'ed 2011, not on home O2), type 2 diabetes, depression, current smoker w/ 40 pk year smoking history, recurrent UTIs came to the hospital with a chief concern of acute onset of dyspnea associated with dizziness x one day ago likely from acute exacerbation of COPD. At the time of [id number]-iwqijt-ckvjhecvbgg 98.3, pulse rate 75, respirations 16 , blood pressure 99/68 improved to 125/67. Pertinent lab findings: WBC 5.1, hemoglobin 13.8, platelet 276. Sodium 145, potassium 3.5, chloride 108,icarbonate 26. BUN 11, creatinine 0.8. Liver chemistries-AST 22, ALT 30, Alk phos 97. Troponin I-0.01. Urinalysis revealed hazy urine, WBC 5-10, many epithelial cells, bacteria moderate. U tox negative. Chest x-ray revealed unremarkable examination. Etiology in this case for airflow obstruction is likely secondary to emphysema/ chronic bronchitis. Etiology for acute exacerbation is likely infection or continued smoking or seasonal. Differential diagnosis considered at the time of admission-CHF, pneumonia, restrictive lung disease, pleural effusions, acute coronary syndrome. Problem list: #1 acute exacerbation of COPD #2 history of depression #3 current smoker #4 type 2 diabetes Course: We admitted patient to general medical floors for evaluation and treatment. We started her on solumedrol 40mg IV q8h, TRC/nebs, doxycycline (as patient is allergic to erythromycin base). Maintained oxygen saturation in between 90 to 92% at least. She started on 2L O2, which increased to 3L, and then back down to 2.5. We attempted to wean her to room air and she desaturated to 83% on room air. On discharge she is on 2.5L. We placed a pulmonary consult. Patient had never had a sleep study or PFTs. She will be referred to Dr. Loza for those tests outpatient. We continued patient on bronchodilator therapy with albuterol and ipratropium. We continued Symbicort. We tapered solumedrol down and switched to oral prednisone 40 mg for 2 days followed by 30 mg for 2 days, 20 mg for 2 days 10 mg for 2 days and then 5 mg for 2 days and then stop. Doxycycline for a total of [address] chest showed a few scattered tiny pulmonary nodules, measuring between 2 and 3 mm. Several of these are associated with airways (likely mucous plugging) with fissures (likely fissural based lymph nodes). No suspicious pulmonary nodule or mass is seen. Patient is concerned about these nodules and she has been encouraged to follow-up with Dr. Loza. Echocardiogram showed impaired left ventricular relaxation and an ejection fraction of greater than 60%. Patent complained of chest pain that she attributed to coughing and not being able to bring anything up. After ruling out ACS, we ordered Acapella and Mucinex which both failed to work. Chest pain gradually decreased and cough lessened. Smoking cessation counseling, vaccination, avoiding triggers has been communicated. Patient states that she is worried to return to her home as there are several others that smoke there and she does not be tempted to smoke anymore. She is asking for rehabilitation placement as well for her breathing which we will attempt to accommodate with case management. Patient has history recurrent UTI's with workup done outpatient showing outpouching of the bladder. Patient had this workup done when she lived [place] She was then lost to follow-up. Here, urine culture clear. We have referred the patient to Dr. Sanchez for workup and treatment. Finally, given her family history of thyroid disorder and weight gain we did a TSHr which showed to be a normal level. Started Accu-Cheks, insulin sliding scale. Held metformin. Hemoglobin A1c 6.2. Vitamin B12 low, given her complaint of paresthesias upper extremities. Started supplementation with instructions to follow-up with supplementation outpatient Of note low-attenuation masses, most likely cysts, are seen in the liver on the patient's CT of the lung and is suggested that these are followed up outpatient with potential MRI. Patient has been told to follow up with these with her primary care physician. Allergies: Coded Allergies: hydrocodone (From VICODIN) (Intermediate, NAUSEA 06/16/17) erythromycin base (UNKNOWN 06/16/17) codeine (NAUSEA 06/16/17) Disposition Summary Disposition Principal Diagnosis: copd exacerbation Additional Diagnosis: morbid obesity, smoker Discharge Disposition: SNF Discharge Instructions General Discharge Information Code Status: Full Code Patient's Diet: regular Patient's Activity: as tolerated Follow-Up Instructions/Appts: 1. follow up with PCP in one week. please follow up with him/her on potential liver cysts and further evaluation. 2. follow up with Dr. Loza for PFTs, sleep study, and further evaluation of lung nodules. 3. follow up with Dr. Sanchez urologist for urinary issues 4. take all medications as directed Medications at Discharge Discharge Medications: Continue taking these medications: Loratadine (Loratadine) 10 MG TABLET 10 Milligram ORAL DAILY @8 AM Qty = 15 Comments: NOT GIVEN IN HOSPITAL Escitalopram Oxalate (Lexapro) 10 MG TABLET 20 Milligram ORAL DAILY Qty = 15 Comments: Last Taken: 09/17/17 Time: 9:00 AM Trazodone HCl (Trazodone HCl) 50 MG TABLET 50 Milligram ORAL AT BEDTIME as needed for Insomnia Qty = 15 Comments: Last Taken: 09/17/14 Time: 2:25 AM Budesonide/Formoterol Fumarate (Symbicort 160-4.5 Mcg Inhaler) 160 MCG-4.5 MCG/ ACTUATION HFA.AER.AD 2 Puff Inhale through mouth TWICE DAILY Qty = 1 Comments: Last Taken: 09/17/17 Time: 9:00 AM Ergocalciferol (Vitamin D2) (Vitamin D2) 50,000 UNIT CAPSULE 50,000 International Unit ORAL ONCE A WEEK Qty = 4 Comments: NOT GIVEN IN HOSPTIAL Ibuprofen (Ibuprofen) 600 MG TABLET 1 Tablet ORAL THREE TIMES DAILY as needed for PAIN Qty = 20 Instructions: with food Comments: NOT GIVEN IN HOSPITAL Metformin HCl (Metformin HCl) 500 MG TABLET 1 Tablet ORAL TWICE DAILY Comments: NOT GIVEN IN HOSPITAL Start taking the following new medications: Doxycycline Hyclate (Doxycycline Hyclate) 100 MG CAPSULE 100 Milligram ORAL TWICE DAILY Qty = 3 No Refills Comments: Last Taken: 09/17/17 Time: 9:00 AM Nicotine (Nicotine Patch) 14 MG/24 HOUR PATCH.TD24 14 Milligram On the skin DAILY Qty = 30 No Refills Comments: NOT GIVEN IN HOSPITAL Guaifenesin (Guaifenesin ER) 600 MG TAB.ER.12H 600 Milligram ORAL EVERY 12 HOURS Qty = 14 No Refills Comments: Last Taken: 09/17/17 Time: 9:00 AM Prednisone (Prednisone) 10 MG TABLET 1 Tablet ORAL SEE INSTRUCT Qty = 26 No Refills Instructions: 4TABS/DAY ON 09/18 AND 09/19 3TABS/DAY ON 09/20, 09/21, 09/22 2TABS/DAY ON 09/23, 09/24, 09/25 1TAB/DAY 09/26, 09/27, 09/28 Comments: Last Taken: 09/17/17 Time: 9:00 AM Copies To: Maddi Sanchez MD; Teagan VILLARREAL,Teagan; Dago VILLARREAL,Akira
[2017-09-17 11:25] VITALS: BP 134/80
--- NOTE | 2017-09-17 11:31 | PN- Att Addend ---
See Addendum Attending Addendum Attending Brief Note Patient seen and examined, overall feeling better. She feels anxious about her COPD and her home situation. She does have a bed available at rehab today. Her oxygen requirement remains at 2.5 L. Clinically she is feeling better with less shortness of breath and on lung exam she has decreased breath sounds but no wheezing. She is medically stable for discharge today. She will be discharged on prednisone taper and doxycycline to complete the course. She would have an outpatient follow-up with COPD clinic, pulmonology and a PCP. She will need a repeat CAT scan of her chest and abdomen to look for those nodules as well as liver cysts. She will be continued on her inhalers. Smoking cessation counseling was provided. Discharge to [facility] today.
[2017-09-17] MEDS ORDERED: ALBUTEROL2.5 MG/3 M INH (11:33)
[2017-09-17 13:54] VITALS: BP 110/70
[2017-09-17 21:43] VITALS: BP 120/70
[2017-09-18 06:23] VITALS: BP 126/64
--- NOTE | 2017-09-18 08:44 | PN- Housestaff ---
Gabby VILLARREAL,Norma 09/18/17 0844: Subjective Follow-up For: COPD exacerbation Current smoker Lung nodules Liver lesions Diabetes Morbid obesity Subjective: Patient seen and examined. She was set to go to rehabilitation yesterday but did not have a bowel movement. We have tried Dulcolax suppository, Fleet enema, bowel cocktail. The patient's last bowel movement was on 09/13. She states that she is now feeling uncomfortable. She has positive bowel sounds. She says that she usually has a bowel movement every other day but not going for long periods is normal for her. She has no urinary symptoms. She notes that her breathing is better and has some residual soreness of her chest left over. Review of Systems Constitutional: Reports: no symptoms. Cardiovascular: Reports: chest pain. Respiratory: Reports: no symptoms. Gastrointestinal: Reports: constipation. Musculoskeletal: Reports: no symptoms. Neurological/Psychological: Reports: anxiety. Objective Last 24 Hrs of Vital Signs/I&O Vital Signs Date Time Temp Pulse Resp B/P B/P Pulse O2 O2 Flow FiO2 Mean Ox Delivery Rate 09/18 0817 94 Nasal 2.5L Cannula 09/18 0800 96 Nasal 2.5L Cannula 09/18 0800 96 Nasal 2.5L Cannula 09/18 0623 97.9 57 18 126/64 95 Nasal 2.5L Cannula 09/18 0000 95 Nasal 2.5L Cannula 09/18 0000 95 Nasal 2.5L Cannula 09/17 2143 98.8 70 18 120/70 98 Nasal 2.5L Cannula 09/17 1615 92 Nasal 2.5L Cannula 09/17 1600 92 Nasal 2.5L Cannula 09/17 1600 92 Nasal 2.5L Cannula 09/17 1354 98.1 77 18 110/70 90 Nasal 2.5L Cannula 09/17 1125 97.7 60 20 134/80 Intake & Output 09/18 1600 09/18 0800 09/18 0000 Intake Total 120 240 Output Total Balance 120 240 Intake, Oral 120 240 Physical Exam General Appearance: Alert, Oriented X3, Cooperative, No Acute Distress HEENT: Atraumatic, PERRLA, EOMI, Mucous Membr. moist/pink Cardiovascular: Regular Rate, Normal S1, Normal S2, No Murmurs Lungs: Clear to Auscultation, Normal Air Movement Abdomen: Normal Bowel Sounds, Soft, No Tenderness, No Hepatospenomegaly, No Masses Neurological: Normal Speech Current Medications: Current Medications Sig/Shahid Start time Last Medication Dose Route Stop Time Status Admin Acetaminophen 650 MG Q8P PRN 09/13 0300 AC 09/14 PO 2149 Acetylcysteine 2 ML BID 09/14 2100 DC 07 INH 2055 Albuterol Sulfate 3 ML EVERY 4 HRS/AWAKE 07/ 1200 AC 09/18 INH 0811 Bisacodyl 10 MG ONCE ONE 09/18 1000 DC SD 09/18 1001 Bisacodyl 10 MG ONCE ONE 09/17 1630 DC 09/17 SD 09/17 1631 1648 Bisacodyl 10 MG ONCE ONE 09/17 1630 DC 09/17 SD 09/17 1631 1648 Bisacodyl 10 MG ONCE PRN 09/17 1530 AC SD Bisacodyl 10 MG .STK-MED ONE 09/17 1418 DC SD 09/17 1419 Budesonide/ 2 PUF BID 09/13 0900 AC 09/18 Formoterol Fumarate INH 0852 Cyanocobalamin 250 MCG DAILY 09/14 1600 AC 09/18 PO 0853 Doxycycline Hyclate 100 MG BID 09/13 1430 AC 09/18 PO 0848 Escitalopram Oxalate 20 MG DAILY 09/13 0900 AC 09/18 PO 0851 Guaifenesin 600 MG Q12 09/14 1126 AC 09/18 PO 0849 Heparin Sodium 5,000 UNIT Q8 09/13 0600 AC 09/18 (Porcine) SC 0524 Insulin Aspart 0 TIDAC 09/13 0800 AC 09/17 SC 1708 Magnesium Hydroxide 30 ML ONE ONE 09/18 0845 DC 09/18 PO 09/18 0846 0855 Magnesium Hydroxide 30 ML ONE ONE 09/17 1400 DC 09/17 PO 09/17 1401 1402 Nicotine 14 MG DAILY 09/13 09 AC TOP Polyethylene Glycol 17 GM DAILY 09/16 1000 AC 09/18 PO 0848 Prednisone 40 MG DAILY 09/17 0900 AC 09/18 PO 0850 Senna/Docusate Sodium 1 TAB BID 09/16 1000 AC 09/18 PO 0849 Sodium Phosphate 1 UNIT ONCE ONE 09/18 1000 DC SD 09/18 1001 Sodium Phosphate 1 UNIT ONCE PRN 09/17 1530 AC SD Sodium Phosphate 1 UNIT ONCE ONE 09/17 1230 DC 09/17 SD 09/17 1231 1242 Trazodone HCl 50 MG AT BEDTIME PRN 09/13 2100 AC 09/17 PO 0225 Assessment/Plan Assessment: Ms Robles is a 57 year old woman w/ a PMHx of Asthma, COPD (dx'ed 2011, not on home O2), type 2 diabetes, depression (admitted to [facility] a few months ago), current smoker w/ 40 pk year smoking history, recurrent UTIs came to the hospital with a chief concern of acute onset of dyspnea associated with dizziness x one day ago likely from acute exacerbation of COPD. At the time of [id number] 98.3, pulse rate 75, respirations 16 , blood pressure 99/68 improved to 125/67. Pertinent lab findings: WBC 5.1, hemoglobin 13.8, platelet 276. Sodium 145, potassium 3.5, chloride 108,icarbonate 26. BUN 11, creatinine 0.8. Liver chemistries-AST 22, ALT 30, Alk phos 97. Troponin I-0.01. Urinalysis revealed hazy urine, WBC 5-10, many epithelial cells, bacteria moderate. U tox negative. Chest x-ray revealed unremarkable examination. Etiology in this case for airflow obstruction is likely secondary to emphysema/ chronic bronchitis. Etiology for acute exacerbation is likely infection or continued smoking or seasonal. Differential diagnosis considered at the time of admission-CHF, pneumonia, restrictive lung disease, pleural effusions, acute coronary syndrome. Problem list: #1 acute exacerbation of COPD #2 history of depression #3 current smoker #4 type 2 diabetes #5 lung nodules #6 liver lesions #7 Morbid obesity Plan: -Esterase for discharged to short-term rehabilitation but did not have a bowel movement since 09/13, notes that this is semi-normal for her, usually has a bowel movement every other day and has times when she has not had bowel movements for several days. Yesterday we tried Fleet enema and Dulcolax suppository. Today we will reattempt these interventions. -Maintain oxygen saturation in between 90 to 92% at least. She is currently on 2.5 L of oxygen. We will maintain her on this today as she desaturated to 83% on room air. We will discharge her to short-term rehab where she will receive oxygen as needed. -Monitor for AMS, clinical tiring, arterial blood gas, if she has changes in mentation. If she develops hypercarbic respiratory failure ventilator support by an NIPPV might be needed. -CT chest showed a few scattered tiny pulmonary nodules, measuring between 2 and 3 mm. Several of these are associated with airways (likely mucous plugging) with fissures (likely fissural based lymph nodes). No suspicious pulmonary nodule or mass is seen. Patient is concerned about these nodules and she has been encouraged to follow-up with Dr. Loza. -Bronchodilator therapy with albuterol and ipratropium. Continue Symbicort. -We will continue oral prednisone 40 mg for today followed by 30 mg for 3 days, 20 mg for 3 days 10 mg for 3 days and then stop. -Continue doxycycline 100 mg twice a day for total 7 days of treatment as patient is allergic to erythromycin base and cannot receive azithromycin -Continue Acapella as patient is noting that she cannot cough up any sputum and we replaced Robitussin with Mucinex, patient's still not able to cough up any phlegm -Pulmonology has suggested outpatient pulmonary function tests and sleep study. -Echocardiogram showed impaired left ventricular relaxation and an ejection fraction of greater than 60%. -Smoking cessation counseling, vaccination, avoid triggers. Patient states that she is worried to return to her home as there are several others that smoke there and she does not be tempted to smoke anymore. She is asking for rehabilitation placement as well for her breathing which we will attempt to accommodate with case management. -Urine culture clear so far. If she develops any symptoms of UTI, she might need abx. -Urology evaluation as an outpatient as patient has continuous UTIs for her outpouching of bladder, previously evaluated by an [id number] urologist with patient lost to follow-up. -Patient will not be able to be discharged to short-term rehab unless she has a bowel movement, bowel regimen has been ordered along with Dulcolax suppository and Fleet enema. -Counseled on medication compliance -Continue Lexapro at this time. -TSH, given her family history of thyroid disorder and weight gain. Normal level. -Accu-Cheks, insulin sliding scale. Consider starting long-acting insulin in the next 24 hours. Hold metformin. Hemoglobin A1c 6.2. Vitamin B12 low, given her complaint of paresthesias upper extremities. Can start supplementation. *Of note low-attenuation masses are seen in the liver and is suggested that these are followed up outpatient with potential MRI. DVT prophylaxis with Alps and subcutaneous heparin Full code regular diet Problem List: 1. COPD (chronic obstructive pulmonary disease) Pain Ratin Pain Location: NA Pain Goal: Remain pain free Pain Plan: NA Tomorrow's Labs & Rationales: [place] MD,Amir 09/18/17 1033: Attending MD Review Statement Attending Statement Attending MD Statement: examined this patient, discuss w/resident/PA/[employer]ESSING SUPERVISOR, agreed w/resident/PA/[employer] PROCESSING SUPERVISOR, reviewed EMR data (avail), discussed with nursing Attending Assessment/Plan: Mr. Robles was seen and evaluated. Reprots doing better as breathing has sig improved No BM yet --cont to titrate Oxygen --cont bowel regimen --d/c to rehab facility after BM --rest of the plan as per resident's note
[2017-09-18 13:48] VITALS: BP 134/80
--- NOTE | 2017-09-18 13:52 | PN- Pulmonary ---
Subjective HPI/Critical Care Issues: Patient seen and examined. She was set to go to rehabilitation yesterday but did not have a bowel movement. We have tried Dulcolax suppository, Fleet enema, bowel cocktail. The patient's last bowel movement was on 09/13. She states that she is now feeling uncomfortable. She has positive bowel sounds. She says that she usually has a bowel movement every other day but not going for long periods is normal for her. She has no urinary symptoms. She notes that her breathing is better and has some residual soreness of her chest left over. Review of Systems Constitutional: Reports: no symptoms. Cardiovascular: Reports: chest pain. Respiratory: Reports: no symptoms. Gastrointestinal: Reports: constipation. Musculoskeletal: Reports: no symptoms. Neurological/Psychological: Reports: anxiety. Objective Current Medications: Current Medications Sig/Shahid Start time Last Medication Dose Route Stop Time Status Admin Acetaminophen 650 MG Q8P PRN 09/13 0300 AC 09/14 PO 2149 Acetylcysteine 2 ML BID 09/14 2100 DC 09/17 INH 2055 Albuterol Sulfate 3 ML EVERY 4 HRS/AWAKE 09/13 1200 AC 09/18 INH 0811 Bisacodyl 10 MG ONCE ONE 09/18 1000 DC AK 09/18 1001 Bisacodyl 10 MG ONCE ONE 09/17 1630 DC 07 AK 07 1631 1648 Bisacodyl 10 MG ONCE ONE 09/17 1630 DC 07 AK 07 1631 1648 Bisacodyl 10 MG ONCE PRN 09/17 1530 AC AK Bisacodyl 10 MG .STK-MED ONE 09/17 1418 DC AK 09/17 1419 Budesonide/ 2 PUF BID 09/13 0900 AC 09/18 Formoterol Fumarate INH 0852 Cyanocobalamin 250 MCG DAILY 09/14 1600 AC 09/18 PO 0853 Doxycycline Hyclate 100 MG BID 09/13 1430 AC 09/18 PO 0848 Escitalopram Oxalate 20 MG DAILY 09/13 0900 AC 09/18 PO 0851 Guaifenesin 600 MG Q12 09/14 1126 AC 09/18 PO 0849 Heparin Sodium 5,000 UNIT Q8 09/13 0600 AC 09/18 (Porcine) SC 0524 Insulin Aspart 0 TIDAC 09/13 0800 AC 09/17 SC 1708 Magnesium Hydroxide 30 ML ONE ONE 09/18 0845 DC 09/18 PO 09/18 0846 0855 Magnesium Hydroxide 30 ML ONE ONE 09/17 1400 DC 09/17 PO 09/17 1401 1402 Nicotine 14 MG DAILY 09/13 899 AC TOP Polyethylene Glycol 17 GM DAILY 09/16 1000 AC 09/18 PO 0848 Prednisone 40 MG DAILY 09/17 0900 AC 09/18 PO 09/18 2200 0850 Senna/Docusate Sodium 1 TAB BID 09/16 1000 AC 09/18 PO 0849 Sodium Phosphate 1 UNIT ONCE ONE 09/18 1000 DC 09/18 AK 09/18 1001 1133 Sodium Phosphate 1 UNIT ONCE PRN 09/17 1530 AC AK Trazodone HCl 50 MG AT BEDTIME PRN 09/13 2100 AC 09/17 PO 0225 Vital Signs & I&O Last 24 Hrs of Vitals and I&O: Vital Signs Date Time Temp Pulse Resp B/P B/P Pulse O2 O2 Flow FiO2 Mean Ox Delivery Rate 09/18 1348 97.7 60 20 134/80 09/18 0817 94 Nasal 2.5L Cannula 09/18 08 96 Nasal 2.5L Cannula 09/18 0800 96 Nasal 2.5L Cannula 09/18 0623 97.9 57 18 126/64 95 Nasal 2.5L Cannula 09/18 0000 95 Nasal 2.5L Cannula 09/18 0000 95 Nasal 2.5L Cannula 09/17 2143 98.8 70 18 120/70 98 Nasal 2.5L Cannula 09/17 1615 92 Nasal 2.5L Cannula 09/17 1600 92 Nasal 2.5L Cannula 09/17 1600 92 Nasal 2.5L Cannula 09/17 1354 98.1 77 18 110/70 90 Nasal 2.5L Cannula Intake & Output 09/18 1600 09/18 0800 09/18 0000 Intake Total 120 240 Output Total Balance 120 240 Intake, Oral 120 240 Impression/Plan Impression/Plan Impression/Plan: General Appearance: Alert, Oriented X3, Cooperative, No Acute Distress HEENT: Atraumatic, PERRLA, EOMI, Mucous Membr. moist/pink Cardiovascular: Regular Rate, Normal S1, Normal S2, No Murmurs Lungs: Clear to Auscultation, Normal Air Movement Abdomen: Normal Bowel Sounds, Soft, No Tenderness, No Hepatospenomegaly, No Masses Neurological: Normal Speech 57-year-old admitted with exacerbation of COPD clinically improved Prob solange Smoking obesity REC cont meds wean down oxygen Agg bowel regimen ok to dc will follow Needs out pt keturahal
== END 2017-09-18 15:00 | DRG 140 ==
LOC: DELPENDDIS → ERH 20:07 → ERHI 09-13 02:42 → 2NB 09-13 02:42 → ENRESERV 09-13 03:31 → 2NB 09-13 03:57 → 1NO 09-13 14:05 → ENTRNSPT 09-14 21:09 → EDTRNSPTSTS 09-14 21:15 → EDTRNSPT 09-14 21:15 → 2NB 09-14 21:18 → CMPTRNSPT 09-14 21:39 → ENPENDDIS 09-17 11:42 → 2NB 09-18 15:00
PROVIDERS: Internal Medicine Endocrinology, Diabetes & Metabolism; Physician Assistant Medical
DX: J44.1 Chronic obstructive pulmonary disease with (acute) exacerbation (principal); E66.01 Morbid (severe) obesity due to excess calories; Z68.41 Body mass index [BMI] 40.0-44.9, adult; E11.9 Type 2 diabetes mellitus without complications; J20.9 Acute bronchitis, unspecified; J44.0 Chronic obstructive pulmonary disease with (acute) lower respiratory infection; R91.8 Other nonspecific abnormal finding of lung field; K76.9 Liver disease, unspecified; F32.9 Major depressive disorder, single episode, unspecified; F17.200 Nicotine dependence, unspecified, uncomplicated; Z79.84 Long term (current) use of oral hypoglycemic drugs; Z88.5 Allergy status to narcotic agent
CPT/HCPCS: 1NSP; 2NBSP; 36592; 71046; 80307; 81001; 82436; 87086; 93005; 93010; 93306; G0480; J1644; J2920; J2930; J3101; J3490; J7608

== ENCOUNTER 2017-11-01 16:51 | Inpatient (IN) | payer OTHER ==
[~2017-11-01] VITALS: Ht 165.1 cm; Wt 113.5 kg
[~2017-11-01 16:51] MED LIST changes: +ALBUTEROL2.5 MG/3 M INH; +DOXYCYCLINE HY100 M2 PO; +GUAIFENESIN ER600 MG PO; +NICOTINE PATCH1 EAC2 TOP; +PREDNISONE10 M2 PO
[2017-11-01 17:54] LABS: ABSOLUTE BASOPHIL COUNT 0 /CUMM (0.0-0.2); ABSOLUTE EOSINOPHIL COUNT 0.1 /CUMM (0.0-0.7); ABSOLUTE GRANULOCYTE CT 4.8 /CUMM (1.4-6.5); ABSOLUTE LYMPH COUNT 1.8 /CUMM (1.2-3.4); ABSOLUTE MONOCYTE COUNT 0.6 /CUMM (0.10-0.60); BASOPHIL % 0.5 % (0.0-2.0); EOSINOPHIL % 1.7 % (0-5); GRANULOCYTE % 65.7 % (42.2-75.2); HEMATOCRIT 46.4 % (37-47); MEAN CORPUSCULAR HGB 28.7 PG (27.0-31.0); MEAN CORPUSCULAR HGB CONC 34.2 G/DL (33.0-37.0); MEAN PLATELET VOLUME 9.3 FL (7.4-10.4); PLATELET COUNT 265 /CUMM (130-400); RBC DISTRIBUTION WIDTH 15.3 % (11.5-14.5); RED BLOOD CELL CT 5.52 /CUMM (4.20-5.40); WHITE BLOOD CELL COUNT 7.4 /CUMM (4.8-10.8)
--- NOTE | 2017-11-01 18:24 | RADIOLOGY REPORT ---
EXAMINATION: XR CHEST CLINICAL INFORMATION: 57-year-old female patient with a presumptive diagnosis of pneumonia or CHF. Chest pain. Shortness of breath. Cough. COMPARISON: Last chest x-ray done September 12, 2017. TECHNIQUE: 2 views of the chest were obtained. FINDINGS: The heart is normal in size. Pulmonary vascularity remains normal. Lungs are clear showing no evidence of edema or consolidation. No pleural effusion is present. IMPRESSION: No evidence of pneumonia or CHF.
--- NOTE | 2017-11-01 18:33 | ED PSYCHIATRIC COMPLAINT ---
See Addendum History of Present Illness General Chief Complaint: Psychiatric Related Complaint Stated Complaint: BIBA FOR +SI Source: patient Exam Limitations: no limitations Vital Signs & Intake/Output Vital Signs & Intake/Output Vital Signs Date Time Temp Pulse Resp B/P B/P Pulse O2 O2 Flow FiO2 Mean Ox Delivery Rate 11/01 2243 98.7 70 130/59 11/01 2158 97.1 76 20 111/73 93 Room Air 11/01 1726 98.0 94 20 125/88 95 Room Air Allergies Coded Allergies: hydrocodone (From VICODIN) (Intermediate, NAUSEA 11/01/17) erythromycin base (UNKNOWN 11/01/17) codeine (NAUSEA 11/01/17) Reconcile Medications Albuterol Sulfate 2.5 MG/3 ML (0.083 %) VIAL.NEB 3 ML INH EVERY 4 HRS/AWAKE PRN Shortness of breath Budesonide/Formoterol Fumarate (Symbicort 160-4.5 Mcg Inhaler) 160 MCG-4.5 MCG/ ACTUATION HFA.AER.AD 2 PUF INH BID COPD Doxycycline Hyclate 100 MG CAPSULE 100 MG PO BID antibiotic Ergocalciferol (Vitamin D2) (Vitamin D2) 50,000 UNIT CAPSULE 50,000 IU PO ONCE A WEEK supplement Escitalopram Oxalate (Lexapro) 10 MG TABLET 20 MG PO DAILY depression/anxiety Guaifenesin (Guaifenesin ER) 600 MG TAB.ER.12H 600 MG PO Q12 MUCOLYTIC Ibuprofen 600 MG TABLET 1 TAB PO TID PRN PAIN with food Loratadine 10 MG TABLET 10 MG PO 0800 allergies Metformin HCl 500 MG TABLET 1 TAB PO BID diabetes (Reported) Nicotine (Nicotine Patch) 14 MG/24 HOUR PATCH.TD24 14 MG TOP DAILY SMOKING CESSATION Prednisone 10 MG TABLET 1 TAB PO SEE INSTRUCT COPD 4TABS/DAY ON 09/18 AND 09/19 3TABS/DAY ON 09/20, 09/21, 09/22 2TABS/DAY ON 09/23, 09/24, 09/25 1TAB/DAY 09/26, 09/27, 09/28 Trazodone HCl 50 MG TABLET 50 MG PO AT BEDTIME PRN Insomnia Triage Note: PT BIBA TO ER KWON D FROM OUTPATIENT CLINIC FOR INCREASED THOUGHTS TO HARM HERSELF WITH PLAN TO TAKE ALL OF HER MEDS. PT ALERT/ORIENTED, CALM AND COOPERATIVE. EVALUATED BY CHELSEA DICK ON ARRIVAL TO ER. DENIES DRUGS OR ETOH, SMOKES 3 CIGARRETTES/DAY. SECURITY FOUND RAZOR AND LITTLE DRUG BAGS (EMPTY) IN PATIENTS POCKETBOOK, BROUGHT TO PHARMACY BY SECURITY PER THEIR DRUG PARAPHENLIA POLICY. Triage Nurses Notes Reviewed? yes Onset: Abrupt Duration: day(s):, constant, continues in ED Timing: single episode today Severity: mild, moderate Associated Symptoms: anxiety, suicidal ideation LMP (ages 10-50): unknown : No Patient currently breastfeeds: No HPI: 57-year-old female history of anxiety, depression, asthma, COPD, diabetes brought in by ambulance for evaluation of suicidal ideation. Patient was at her psychiatrist's office and made statements about how she was depressed and wanted to end her life. She was referred to the ER for further evaluation and crisis consult. Patient reports she has been feeling depressed for several months now. She states she feels no emotions. She has a plan to overdose on medication. She has been evaluated for similar symptoms in the past at this hospital. She denies any drug or alcohol use. No hallucinations. She does report she has a history of COPD and has a chronic cough. She states that the cough causes her to feel pain in her bilateral ribs. No hemoptysis no lower extremity edema no fevers. She has been compliant with her medications. She has an inhaler that she uses with some improvement. (Arturo TRAN,Dao) Past History Travel History Traveled to [place] past 21 day No Medical History Any Pertinent Medical History? 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 MOTHER (thyroid disorder, type unknown). Hx Contributory? No (Dao Miller) Review of Systems Review of Systems Constitutional: Reports: no symptoms. EENTM: Reports: no symptoms. Respiratory: Reports: see HPI, cough, short of breath. Cardiovascular: Reports: no symptoms. GI: Reports: no symptoms. Genitourinary: Reports: no symptoms. Musculoskeletal: Reports: no symptoms. Skin: Reports: no symptoms. Neurological/Psychological: Reports: see HPI, anxiety, depressed. Hematologic/Endocrine: Reports: no symptoms. Immunologic/Allergic: Reports: no symptoms. All Other Systems: Reviewed and Negative (Dao Miller) Physical Exam Physical Exam General Appearance: well developed/nourished, no apparent distress, alert, awake Head: atraumatic, normal appearance Eyes: Bilateral: normal appearance, PERRL, EOMI. Ears, Nose, Throat: normal pharynx, normal ENT inspection, hearing grossly normal Neck: normal inspection, supple, full range of motion Respiratory: chest non-tender, no respiratory distress, quiet respiration, decreased breath sounds Cardiovascular: regular rate/rhythm, normal peripheral pulses Gastrointestinal: soft, non-tender Extremities: normal range of motion Neurological/Psychiatric: no motor/sensory deficits, awake, alert, depressed affect Appearance/Memory/Insight: appropriate appearance, appropriate insight Behavoir/Eye Contact/Speech: cooperative, normal speech Thoughts/Hallucinations: normal thought pattern, no apparent hallucination Skin: intact, normal color, warm/dry SAD PERSONS SAD PERSONS Response Value Age <19 or >45 years? yes 1 Depression/Hopelessness? yes 2 Previous Attempts/Psych Care yes 1 Rational Thinking Loss? yes 2 Single//? yes 1 Total 7 SAD PERSONS Done? yes (Dao Miller) Progress Differential Diagnosis: dementia, drug intoxication, drug overdose, drug withdrawal, electrolyte abnormality Plan of Care: Orders Procedure Date/time Status Regular Diet 11/02 B Active EKG 11/02 0900 Active Vital Signs 11/01 2233 Active Inpt Psych Teach/Educate 11/01 2233 Active Nutritional Intake, Monitor 11/01 2233 Active Inpt Psych Auricular Acupunctu 11/01 2233 Active Patient Data - inpatient psych 11/02 2219 Active Admit to inpatient psych 11/02 2219 Active Admit to inpatient psych 11/01 2054 Active Add-on Test (ER Only) 11/01 1846 Active Intake & Output 11/01 1739 Complete Add-on Test (ER Only) 11/01 172 Active EKG 11/01 172 Active TROPONIN LEVEL 11/01 1728 Complete CULTURE,URINE 11/01 171 Active Continuous Observation Monitor 11/01 170 Complete URINE DRUG SCREEN FOR ER ONLY 11/01 170 Complete URINALYSIS 11/01 170 Complete ETHANOL 11/01 170 Complete COMPREHENSIVE METABOLIC PANEL 11/02 1703 Complete CBC WITHOUT DIFFERENTIAL 11/02 1703 Complete ED CRISIS PSYCH CONSULT 11/01 1704 Active Vital Signs 11/01 UNK Complete Activity/Ambulation 11/01 UNK Complete Current Medications Sig/Shahid Start time Last Medication Dose Stop Time Status Admin Ergocalciferol 50,000 IU ONCE A WEEK 11/08 1000 UNVr (Drisdol) Escitalopram Oxalate 10 MG DAILY 11/02 899 UNVr (Lexapro) Loratadine 10 MG DAILY 11/02 899 UNVr (Claritin) Albuterol Sulfate 2 PUF Q4 PRN 11/01 2229 AC (Ventolin) Nicotine 2 MG Q2 HRS NEEDED PRN 11/01 2229 UNVr (Nicotine) Trazodone HCl 50 MG AT BEDTIME NEED.. 11/01 2229 UNVr (Desyrel) Budesonide/ 2 PUF BID 11/01 2221 AC Formoterol Fumarate (Symbicort) Laboratory Tests 11/01/171727: Anion Gap 9, Estimated GFR > 60, BUN/Creatinine Ratio 12.2, Glucose 125 H, Calcium 9.5, Total Bilirubin 0.6, AST 21, ALT 32, Alkaline Phosphatase 98, Troponin I < 0.01, Total Protein 7.3, Albumin 4.2, Globulin 3.1, Albumin/ Globulin Ratio 1.4, CBC w Diff NO MAN DIFF REQ, RBC 5.52 H, MCV 84.0, MCH 28.7, MCHC 34.2, RDW 15.3 H, MPV 9.3, Gran % 65.7, Lymphocytes % 24.0, Monocytes % 8.1, Eosinophils % 1.7, Basophils % 0.5, Absolute Granulocytes 4.8, Absolute Lymphocytes 1.8, Absolute Monocytes 0.6, Absolute Eosinophils 0.1, Absolute Basophils 0, Serum Alcohol < 10.0 11/01/171718: Urine Opiates Screen < 100, Methadone Screen < 40, Barbiturate Screen < 60, Ur Phencyclidine Scrn < 6.00, Amphetamines Screen 301, U Benzodiazepines Scrn < 85, Urine Cocaine Screen < 50, Urine Cannabis Screen 6.60, Urine Color YEL, Urine Clarity HAZY H, Urine pH 6.0, Ur Specific [place] >= 1.030, Urine Protein 100 H, Urine Ketones TRACE H, Urine Nitrite NEG, Urine Bilirubin NEG@ICTO, Urine Urobilinogen 1.0, Ur Leukocyte Esterase TRACE H, Ur Microscopic SEDIMENT EXAMINED, Urine RBC FEW H, Urine WBC 15-25 H, Ur Epithelial Cells MANY H, Hyaline Casts FEW H, Urine Mucus MANY H, Urine Hemoglobin TRACE-INTACT, Urine Glucose NEG Microbiology 11/01 1718 URINE ROUT: Urine Culture - RECD Patient is here for evaluation of depression and suicidal ideation. She does note some cough shortness of breath and bilateral chest pain from coughing. This has been going on for a few months. Labs EKG chest x-ray ordered. Patient will see crisis. Blood work is unremarkable chest x-ray is clear. PT SIGNED OUT TO DR MAURER PENDING CRISIS. Diagnostic Imaging: Viewed by Me: Radiology Read. Discussed w/RAD: Radiology Read. Radiology Impression: PATIENT: RITESH ZHOU PRESENT AGE: 57 PATIENT ACCOUNT NO: [id number] : 61 LOCATION: [facility] ORDERING PHYSICIAN: Dao TRAN SERVICE DATE: 11/01/17 EXAM TYPE: RAD - XRY- CHEST XRAY, TWO VIEWS EXAMINATION: XR CHEST CLINICAL INFORMATION: 57-year-old female patient with a presumptive diagnosis of pneumonia or CHF. Chest pain. Shortness of breath. Cough. COMPARISON: Last chest x-ray done September 12, 2017. TECHNIQUE: 2 views of the chest were obtained. FINDINGS: The heart is normal in size. Pulmonary vascularity remains normal. Lungs are clear showing no evidence of edema or consolidation. No pleural effusion is present. IMPRESSION: No evidence of pneumonia or CHF. DICTATED BY: Gabriel Rayo MD DATE/TIME DICTATED:11/01/171817 PRODUCT INSPECTION COORDINATOR:BLESSING DATE/TIME TRANSCRIBED:1817 CONFIDENTIAL, DO NOT COPY WITHOUT APPROPRIATE AUTHORIZATION. < Electronically signed in Other Vendor System> SIGNED BY: Gabriel Rayo MD 11/01/17 0090 Initial ED EKG: normal sinus rhythm, BORDERLINE T WAVE ABN Hand-Off Endorsed To: Aric Maurer DO Endorsed Time: 1999 Pending: consult (CRISIS) (Dao Miller) Departure Departure Disposition: STILL A PATIENT Condition: Stable Clinical Impression Primary Impression: Suicidal ideation Referrals: Teagan Candelaria MD (PCP/Family) Departure Forms: Customer Survey General Discharge Information (Dao Miller) PA/TIRE SETTER Co-Sign Statement Statement: ED Attending supervision documentation- [] I saw and evaluated the patient. I have also reviewed all the pertinent lab results and diagnostic results. I agree with the findings and the plan of care as documented in the PA's/TIRE SETTER's documentation. [X] I have reviewed the ED Record and agree with the PA's/TIRE SETTER's documentation. [] Additions or exceptions (if any) to the PAs/TIRE SETTER's note and plan are summarized below: [] (Aric Maurer DO)
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
[2017-11-01 22:43] VITALS: BP 130/59
--- NOTE | 2017-11-02 07:41 | CPS PROVIDER INIT ASMT PSYCH ---
Psychiatric Admission Clinical Trials Nurse's Note Reviewed: Yes Patient Seen and Examined: Yes Identifying Information: Nano is a 57-year old, single White female Chief Complaint: According to Shanti Lopez LCSW's note of 11/01/2017: Reaction to Hospitalization: She was admitted voluntarily History of Present Illness Onset of Illness: At least since 2016 Circumstances Leading to Admission: According to Shanti Lopez LCSW's note of 11/01/2017: "making suicidal statements at her doctor's appointment." Problem(s) Justifying Need for Admission: "making suicidal statements" Past Psychiatric History Past Diagnosis(es)- if any: F32.9 Unspecified Depressive Disorder COPD, Diabetes, Past Precipitating Factors- if any: Poverty and unstable housing - Include inpatient and outpatient treatment Treatment History: The patient had 1 previous inpatient psychiatric admission to [facility] on June 17, 2017 and Patient has had a previous admission to [facility] circa 2015 reportedly after "a breakdown", History of Suicide Attempts or Gestures Patient denied any past history of suicide attempts. Substance Abuse History: Patient denied abusing alcohol and denied using substances/illicit drugs Allergies: Coded Allergies: hydrocodone (From VICODIN) (Intermediate, NAUSEA 11/01/17) erythromycin base (UNKNOWN 11/01/17) codeine (NAUSEA 11/01/17) Home Med List: Budesonide/Formoterol Fumarate (Symbicort 160-4.5 Mcg Inhaler) 160 MCG-4.5 MCG/ ACTUATION HFA.AER.AD 2 PUF INH BID COPD #1 INH Prescribed by Hong Toledo MD on 06/24/17 Doxycycline Hyclate 100 MG CAPSULE 100 MG PO BID antibiotic #3 CAP Prescribed by Norma Pierre MD on 09/17/17 Ergocalciferol (Vitamin D2) (Vitamin D2) 50,000 UNIT CAPSULE 50,000 IU PO ONCE A WEEK supplement #4 CAP Prescribed by Hong Toledo MD on 06/24/17 Escitalopram Oxalate (Lexapro) 10 MG TABLET 20 MG PO DAILY depression/anxiety #15 TAB Prescribed by Hong Toledo MD on 06/24/17 Guaifenesin (Guaifenesin ER) 600 MG TAB.ER.12H 600 MG PO Q12 MUCOLYTIC #14 TAB Prescribed by Norma Pierre MD on 09/17/17 Loratadine 10 MG TABLET 10 MG PO 0800 allergies #15 TAB Prescribed by Hong Toledo MD on 06/24/17 Metformin HCl 500 MG TABLET 1 TAB PO BID diabetes (Reported) Entered as Reported by Stanley Cr on 09/13/17 045 Nicotine (Nicotine Patch) 14 MG/24 HOUR PATCH.TD24 14 MG TOP DAILY SMOKING CESSATION #30 PATCH Prednisone 10 MG TABLET 1 TAB PO SEE INSTRUCT COPD - Include any medical condition(s) that may - impact the patient's recovery/remission Past Medical History: Diabetes Mellitus II COPD History of recurrent/peated UTI's Past History Medical History EENT: NONE Respiratory: asthma, COPD Psychiatric: depression Endocrine: diabetes Blood Disorders: VITAMIN D DEFICIENCY Cancer(s): NONE 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 History of MRSA: No History of VRE: No History of CDIFF: No Isolation History: Standard Surgical History Surgical History: cholecystectomy, , TONNESECTOMY Psychiatric Family/Social Hx Family History Psychiatric Illness: Mother does not have psychiatric history, biological father history unknown, the patient considers her father is her mother's who was a father figure since she was 4 years old Substance Use: Mother does not abuse alcohol or substances, biological father's history unknown Suicides: No history of suicides on mother's side, biological father's history unknown Social History Living Situation: Patient is currently homeless. 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 Patient reported that previous charges where only misdemeanors, including disorderly conduct and motor vehicle related charges denied incarcerations Healthly Behaviors Screening Tobacco Screening Tobacco Use from ED Docu: Current Daily Use Daily Tobacco Use Amount/Type: =< 4 Cigarettes daily - If tobacco counseling indicated - the following topics are required. - #1 Recognizing dangerous situations. - #2 Coping Skills. - #3 Basic information about quitting. Status of Tobacco Cessation Counseling: #1, #2 AND #3 Completed Cessation Med Status Nicotine Gum Ordered Alcohol Screening - ETOH screen POS if BAL >=80 or Audit-C>= M4/F3 Audit-C Score from Diag Assess: 0 Blood Alcohol Level: Laboratory Tests 11/01 1728 Toxicology Serum Alcohol (<10 MG/DL) < 10.0 Alcohol Use Screening Results: Neg per Audit C &/or BAL - If ETOH counseling indicated - the following topics are required. - #1 Express concern about the patient's - drinking at unhealthy levels, include informing - of national norms for moderate drinking: - men <= 14 drinks/week, max 4 drinks/occasion - women <= 7 drinks/week, max 3 drinks/occasion - #2 Providing feedback, including linking alcohol to - negative physical effects (liver injury, hypertension) - negative emotional effects (relationship problems and - depression) - negative occupational consequences (reduced work - performance) - #3 Advising the patient to abstain from alcohol or - to drink below national norms for moderate drinking - (as listed above). Status of ETOH Use Counseling: N/A B/C NO ETOH Use Metabolic Screening - Screen if on a Neuroleptic Medication - Metabolic screening should include: - Blood Pressure, BMI, Glucose or Hgb A1c, & a - Lipid profile from within the past 365 days. Metabolic Screening Not Applicable, patient not on a neuroleptic. Exam and Plan Mental Status Examination Ambulation Status: Steady gait Appearance: Obese Attitude towards examiner: Calm and cooperative Psychomotor activity: Reduced psychomotor activity Behavior: No abnormal or bizarre behaviors Quality of speech: Normal speech Affect: Constricted affect Mood: Depressed mood Suicidal Ideation: She reported still having thoughts of suicide Homicidal Ideation: Denied Hallucinations: Denied hallucinations Paranoid/Delusional Material: Denied feeling paranoid Difficulties with thought organization: Coherent, no thought disorder Insight: Partial insight Judgment: Questionable judgment Orientation: Alert and oriented to time, place, and person. Cognition: No evidence of impairment in her information processing Memory Function: No evidence of short-term memory impairment Estimate of intellectual functioning: Average Assets/Strengths Patient Identified Assets/Strengths: The patient is resilient, resourceful Impression/Plan Impression and Plan: 57-year-old white female who has been previously at [facility] inpatient psychiatry in June. Returns with depressive symptoms and thoughts of suicide. - Include all active medical diagnosis that require tx DSM 5 Diagnosis(es): Unspecified depressive disorder - Initial Tx Plan for Active Psych & Medical Conditions Treatment Plan: Inpatient psychiatric care with safety checks every 15 minutes - Factors that would help patient function - in a less restrictive setting. Factors: Patient will be discharge after 2 consecutive days without thoughts of suicide.
[2017-11-02 08:43] VITALS: BP 144/87
--- NOTE | 2017-11-02 12:56 | History & Physical ---
General Information and HPI MD Statement: I have seen and personally examined RITESH ZHOU and documented this H&P. The patient is a 57 year old F who presented with a patient stated chief complaint of "I went from a doctor's appointment and I just give up I do not care anymore". Source of Information: patient, EMS Exam Limitations: unable to give history History of Present Illness: 57-year-old white female was brought in by ambulance for positive suicidal ideations. She was brought from the outpatient clinic with increased thoughts to harm herself with plan to take all her medications. She has been feeling depressed for a few months now.. She has had decreased sleep decreased motivation she feels helpless and hopeless useless and lack of appetite. For all those reasons she is admitted for evaluation and treatment. Allergies/Medications Allergies: Coded Allergies: hydrocodone (From VICODIN) (Intermediate, NAUSEA 11/01/17) erythromycin base (UNKNOWN 11/01/17) codeine (NAUSEA 11/01/17) Home Med list Albuterol Sulfate 2.5 MG/3 ML (0.083 %) VIAL.NEB 3 ML INH EVERY 4 HRS/AWAKE PRN Shortness of breath Budesonide/Formoterol Fumarate (Symbicort 160-4.5 Mcg Inhaler) 160 MCG-4.5 MCG/ ACTUATION HFA.AER.AD 2 PUF INH BID COPD Doxycycline Hyclate 100 MG CAPSULE 100 MG PO BID antibiotic Ergocalciferol (Vitamin D2) (Vitamin D2) 50,000 UNIT CAPSULE 50,000 IU PO ONCE A WEEK supplement Escitalopram Oxalate (Lexapro) 10 MG TABLET 20 MG PO DAILY depression/anxiety Guaifenesin (Guaifenesin ER) 600 MG TAB.ER.12H 600 MG PO Q12 MUCOLYTIC Ibuprofen 600 MG TABLET 1 TAB PO TID PRN PAIN with food Loratadine 10 MG TABLET 10 MG PO 0800 allergies Metformin HCl 500 MG TABLET 1 TAB PO BID diabetes (Reported) Nicotine (Nicotine Patch) 14 MG/24 HOUR PATCH.TD24 14 MG TOP DAILY SMOKING CESSATION Prednisone 10 MG TABLET 1 TAB PO SEE INSTRUCT COPD 4TABS/DAY ON 09/18 AND 09/19 3TABS/DAY ON 09/20, 09/21, 09/22 2TABS/DAY ON 09/23, 09/24, 09/25 1TAB/DAY 09/26, 09/27, 09/28 Trazodone HCl 50 MG TABLET 50 MG PO AT BEDTIME PRN Insomnia Compliance With Home Meds: UNKNOWN Past History Travel History Traveled to [place] past 21 day No Medical History EENT: NONE Respiratory: asthma, COPD Psychiatric: depression Endocrine: diabetes Blood Disorders: VITAMIN D DEFICIENCY Cancer(s): 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 MOTHER (thyroid disorder, type unknown). Psychosocial History Services at Home: None ETOH Use: denies use Illicit Drug Use: denies illicit drug use, DRUG PARAPHENELIA FOUND IN PATIENTS POSSESION Functional Ability ADLs Independent: dressing, eating, toileting, bathing. Ambulation: independent Review of Systems Review of Systems Constitutional: Reports: see HPI. Exam & Diagnostic Data Last 24 Hrs of Vital Signs/I&O Vital Signs Date Time Temp Pulse Resp B/P B/P Pulse O2 O2 Flow FiO2 Mean Ox Delivery Rate 11/02 0843 98.4 77 144/87 11/01 2243 98.7 70 130/59 11/01 2158 97.1 76 20 111/73 93 Room Air 11/01 1726 98.0 94 20 125/88 95 Room Air Intake & Output 11/02 1600 11/02 0800 11/02 0000 Intake Total Output Total Balance Patient 250 lb Weight Physical Exam General Appearance Alert, Oriented X3, Cooperative, No Acute Distress Skin No Rashes, No Breakdown HEENT PERRLA, EOMI, Mucous Membr. moist/pink Neck Supple, No JVD, No thryomegaly, +2 Carotid Pulse wo Bruit Lymphatic Axillary nl, Cervical nl Cardiovascular Regular Rate, No Murmurs Lungs Clear to Auscultation, Normal Air Movement Abdomen Soft, No Tenderness, No Hepatospenomegaly Neurological Exam Findings: Normal Speech, Strength at 5/5 X4 Ext, Normal Tone, Sensation Intact, Cranial Nerves 3-12 NL, Reflexes 2+ Cranial Nerves II through XII: Intact Extremities No Edema, Normal Pulses, No Tenderness/Swelling Vascular Normal Pulses, Pulses Symmetrical Last 24 Hrs of Labs/Gabe: Laboratory Tests 11/01/17 1728: Anion Gap 9, Estimated GFR > 60, BUN/Creatinine Ratio 12.2, Glucose 125 H, Calcium 9.5, Total Bilirubin 0.6, AST 21, ALT 32, Alkaline Phosphatase 98, Troponin I < 0.01, Total Protein 7.3, Albumin 4.2, Globulin 3.1, Albumin/ Globulin Ratio 1.4, CBC w Diff NO MAN DIFF REQ, RBC 5.52 H, MCV 84.0, MCH 28.7, MCHC 34.2, RDW 15.3 H, MPV 9.3, Gran % 65.7, Lymphocytes % 24.0, Monocytes % 8.1, Eosinophils % 1.7, Basophils % 0.5, Absolute Granulocytes 4.8, Absolute Lymphocytes 1.8, Absolute Monocytes 0.6, Absolute Eosinophils 0.1, Absolute Basophils 0, Serum Alcohol < 10.0 11/01/171718: Urine Opiates Screen < 100, Methadone Screen < 40, Barbiturate Screen < 60, Ur Phencyclidine Scrn < 6.00, Amphetamines Screen 301, U Benzodiazepines Scrn < 85, Urine Cocaine Screen < 50, Urine Cannabis Screen 6.60, Urine Color YEL, Urine Clarity HAZY H, Urine pH 6.0, Ur Specific [place] >= 1.030, Urine Protein 100 H, Urine Ketones TRACE H, Urine Nitrite NEG, Urine Bilirubin NEG@ICTO, Urine Urobilinogen 1.0, Ur Leukocyte Esterase TRACE H, Ur Microscopic SEDIMENT EXAMINED, Urine RBC FEW H, Urine WBC 15-25 H, Ur Epithelial Cells MANY H, Hyaline Casts FEW H, Urine Mucus MANY H, Urine Hemoglobin TRACE-INTACT, Urine Glucose NEG Microbiology 11/01 1718 URINE ROUT: Urine Culture - RES Assessment/Plan As Ranked By This Provider Problem List: 1. Suicidal ideation 2. COPD (chronic obstructive pulmonary disease) 3. Depression Miscellaneous Miscellaneous Documentation Attending Case Discussed With: Hong Toledo MD Primary Care Physician: Teagan Candelaria MD Patient sees these Specialists psych. Level of Patient Care: [facility] Consults Needed: Consulting Specialty: Psychiatry Consulting Physician: Dr. Toledo Reason for Consult: Si depression Attending MD Review Statement Attending Statement Attending MD Statement: examined this patient
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
--- NOTE | 2017-11-02 15:17 | SOCIAL WORKER PROG NOTE PSYCH ---
Social Work Progress Note Progress Note Pt feels hopeless, depressed and doesn't see the point of living. She has a flat affect, feels safe on the unit.
[2017-11-02 19:28] VITALS: BP 111/65
[2017-11-03 08:12] VITALS: BP 153/90
--- NOTE | 2017-11-03 12:42 | CP SOUTH PROGRESS NOTE PSYCH ---
Psych (Inpt) Progress Note Progress Note Vital Signs Date Time Temp Pulse B/P B/P O2 11/03 08 98.3 90 153/90 11/03 1927 98.8 77 111/65 Mental Status Examination; Nano was calm and cooperative, she reported feeling 'tired" and showed reduced psychomotor activity. There were no abnormal or bizarre behaviors. She was talkative and slightly pressured. She was anxious and depressed. She was tearful at times, she reported that she was still feeling overwhelmed, helpless and hopeless. Still having thoughts of suicide, denied homicidal Ideation, Denied hallucinations, denied feeling paranoid, she was coherent, no thought disorder, She was alert and oriented to time, place, and person. No evidence of impairment in her information processing and no evidence of short-term memory impairment Assessment Update: The patient is a 57-year-old white female who has been previously at Inpatient psychiatry in June. Returns with depressive symptoms and thoughts of suicide. Diagnoses: Unspecified Depressive Disorder Treatment Plan: Patient had borderline QTc, will therefore stop Trazodone and replace with Ativan tonight Increase sertraline to 100 mg QAM (starting tomorrow) Continue other medications unchanged
--- NOTE | 2017-11-03 13:55 | SOCIAL WORKER PROG NOTE PSYCH ---
Social Work Progress Note Progress Note Sw met with Nano, she is feeling hopeless and expresses she feels "stuck" and there is nothing for her anymore and she does not know what to do with her life anymore. Nano reports she slept well last night but still having racing thoughts and thoughts to hurt herself, she denies HI. She reports feeling safe on the unit and went to groups today. Nano states she does not feel safe where she is currently residing and does not want return there due to not feeling safe. She has no income, has breathing problems that she reports caused her not to get into a correction when she [facility]. Nano expressed she would like paperwork stating she has been in and out of the hospital for medical and psychiatric admittances for a re-arrest warrant that the court issued for not receiving the paperwork last time she was admitted to [facility].
[2017-11-03 19:38] VITALS: BP 128/80
[2017-11-04 08:09] VITALS: BP 135/91
--- NOTE | 2017-11-04 10:35 | SOCIAL WORKER PROG NOTE PSYCH ---
Social Work Progress Note Progress Note Pt continues to be fearful of housing, and managing her depression and COPD in that environment. Pt felt comfortable at [facility], once she was off her oxygen she did not meet criteria to be there any longer.
--- NOTE | 2017-11-04 10:44 | SOCIAL WORKER PROG NOTE PSYCH ---
Social Work Progress Note Progress Note RITESH ABELARDO [id number] 1960 RITESH ABELARDO [id number] Pended Authorization # Client Authorization # Type of Request [id number] CONCURRENT Date of Admission/ Start of Services Requested From Submission Date 11/01/2017 11/04/2017 11/04/2017
--- NOTE | 2017-11-04 12:10 | CP SOUTH PROGRESS NOTE PSYCH ---
Psych (Inpt) Progress Note Progress Note Vital Signs Date Time Temp Pulse B/P B/P O2 FiO2 11/04 0809 96.7 85 135/91 11/03 1938 98.7 71 128/80 Mental Status: Nano was in bed at 12:10 (noontime) She reported that she is having a bad day today (may be related to phone conversation with daughter this morning) she reported feeling "tired" with low energy, low drive, low motivation reduced psychomotor activity. There were no abnormal or bizarre behaviors. She was anxious and depressed. She said she was still feeling overwhelmed, helpless and hopeless. Still having thoughts of suicide, denied homicidal ideation, denied hallucinations, denied feeling paranoid, she was coherent, no thought disorder, She was alert and oriented to time, place, and person. Assessment Update: The patient is a 57-year-old white female who has been previously at [facility] Inpatient psychiatry in June. Returns with depressive symptoms and thoughts of suicide. She reports low energy, lethargy, low drive/motivation and feeling overwhelmed Diagnoses: Unspecified Depressive Disorder Treatment Plan: Continue sertraline 100 mg QAM Methyphenidate 5 mg QAM (starting tomorrow) Continue other medications unchanged
[2017-11-04 19:54] VITALS: BP 158/91
[2017-11-05 08:08] VITALS: BP 108/77
--- NOTE | 2017-11-05 14:15 | CP SOUTH PROGRESS NOTE PSYCH ---
Psych (Inpt) Progress Note Progress Note Vital Signs Date Time Temp Pulse B/P B/P Pulse O2 FiO2 11/06 807 98.1 95 108/77 11/04 1953 98.9 85 158/91 Mental Status: Nano was in bed at 2:50 PM. She reported that she is feeling sleepy, tired with low energy, low drive, low motivation, and reduced psychomotor activity. There were no abnormal or bizarre behaviors. She denied side effects to 5 mg methylphenidate this morning. Still depressed, overwhelmed, helpless and hopeless. Still having --[id number]-- thoughts of suicide, denied homicidal ideation, denied hallucinations, denied feeling paranoid, she was coherent, no thought disorder, Nano was alert and oriented to time, place, and person. Assessment Update: Nano is a 57-year-old white female who has been previously at [facility] Inpatient psychiatry in June. Returns with depressive symptoms and thoughts of suicide. She continue to be depressed with low energy, lethargy, low drive/motivation and feeling overwhelmed Diagnoses: Unspecified Depressive Disorder Treatment Plan: Continue sertraline 100 mg QAM Increase Methyphenidate to 10 mg QAM (starting tomorrow) Continue other medications unchanged
--- NOTE | 2017-11-05 16:11 | SOCIAL WORKER PROG NOTE PSYCH ---
OrestesMartina 11/05/17 1602: Social Work Progress Note Progress Note I Brendan Orestes ( PROSTHETIST development intern) met with Nano this afternoon. The patient was laying in bed but was in agreement to meet with me. She reported that she slept well last night and her mood was "blah". Nano rated her anxiety and depression as severe today. She explained that she does not feel there is a purpose for her to get out of bed in the morning. The patient explains that she sleeps to try and avoid thinking. She feels safe on the unit and can focus better here more than at home. Nano's current living situation is a major stressor for her and she reports feeling unsafe there to the point she isolated in her room the majority of the time. She is stressed about not having income due to her medical condition. She fears getting her node in her lungs checked due to family history of lung cancer. She stated that she has limited contact with her children due to her past.
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
[2017-11-05 20:03] VITALS: BP 145/75
[2017-11-06 08:21] VITALS: BP 135/87
--- NOTE | 2017-11-06 09:05 | CP SOUTH PROGRESS NOTE PSYCH ---
Psych (Inpt) Progress Note Progress Note Vital Signs Date Time Temp Pulse Resp B/P B/P Pulse O2 O2 Flow FiO2 11/06 820 97.6 92 135/87 11/05 2002 97.6 75 145/75 Mental Status: Nano was less tired/less sleepy today. However, she did report still feelin "tired" and having low energy, low drive, and low motivation. She exhibits reduced psychomotor activity. There were no abnormal or bizarre behaviors. She denied side effects to methylphenidate this morning. Still depressed, overwhelmed, helpless and hopeless. Still having --[id number]-- thoughts of suicide, denied homicidal ideation, denied hallucinations, and denied feeling paranoid. Nano was coherent, no thought disorder, Nano was alert and oriented to time, place, and person. Assessment Update: Nano Robles is a 57-year-old white female who was admitted this time because of depressive symptoms and thoughts of suicide. She continue to be depressed with low energy, lethargy, low drive/motivation and feeling overwhelmed Diagnoses: Unspecified Depressive Disorder Treatment Plan: Continue sertraline 100 mg QAM (recently switched from Lexapro) Increase Methyphenidate to 10 mg today and 15 mg tomorrow morning Continue other medications unchanged Acetaminophen 650 MG Q4P PRN Al Hydroxide/Mg 30 ML Q4-6 PRN PRN Hydroxide PO Albuterol Sulfate 2 PUF Q4 PRN INH Budesonide/ 2 PUF BID Formoterol Fumarate INH Ergocalciferol 50,000 IU ONCE A WEEK PO Gabapentin 900 MG AT BEDTIME Gabapentin 600 MG Q6-PRN PRN PO Ibuprofen 600 MG Q6P PRN PO Loratadine 10 MG DAILY PO Lorazepam 1.5 MG AT BEDTIME PO Magnesium Hydroxide 30 ML AT BEDTIME NEED.. Metformin HCl 500 MG 0800,1700 Methylphenidate HCl 15 MG 0800 Nicotine 2 MG Q2 HRS NEEDED PRN Sertraline HCl 125 MG DAILY Trimethoprim/ 1 TAB BID Sulfamethoxazole
[2017-11-06 20:08] VITALS: BP 126/76
--- NOTE | 2017-11-07 08:35 | CP SOUTH PROGRESS NOTE PSYCH ---
Psych (Inpt) Progress Note Progress Note Vital Signs Date Time Temp Pulse Resp B/P B/P Pulse O2 O2 Flow FiO2 11/07 845 97.6 82 119/66 11/07 2007 97.9 85 126/76 Mental Status: Nano tolerated the 50 mg of methylphenidate this morning. She seemed to be less tired/less sleepy today. However, she continues to report low energy and low motivation and low drive and feeling tired. She also continues to voice hopelessness and helplessness. She was very anxious that the woman that she has been staying with whether throw her stuff out as soon as she learns that DCF may have been informed about some of the things that has been going on at home. She exhibits reduced psychomotor activity. There were no abnormal or bizarre behaviors. Still having --[id number]--thoughts of suicide, denied homicidal ideation, denied hallucinations, and denied feeling paranoid. Nano was coherent, no thought disorder, Nano was alert and oriented to time, place, and person. Assessment Update: Nano Robles is a 57-year-old white female who was admitted this time because of depressive symptoms and thoughts of suicide. She continue to be depressed and hopeless with low energy, lethargy, low drive/ motivation and feeling overwhelmed She continues to voice thoughts of suicide Diagnoses: Unspecified Depressive Disorder Treatment Plan: sertraline was increased as of this morning to 125 mg's QAM Increase Methyphenidate to 20 mg QAM Continue other medications unchanged Albuterol Sulfate 2 PUF Q4 PRN Budesonide/ 2 PUF BID Formoterol Fumarate INH Ergocalciferol 50,000 IU ONCE A WEEK Gabapentin 900 MG AT BEDTIME Gabapentin 600 MG Q6-PRN PRN Ibuprofen 600 MG Q6P PRN Loratadine 10 mg DAILY Lorazepam 1.5 MG AT BEDTIME Magnesium Hydroxide 30 ML AT BEDTIME NEED.. Metformin HCl 500 MG 0800,1700 Trimethoprim/ 1 TAB BID Sulfamethoxazole
[2017-11-07 08:46] VITALS: BP 119/66
[2017-11-07 19:38] VITALS: BP 143/77
[2017-11-08 08:08] VITALS: BP 125/57
--- NOTE | 2017-11-08 13:46 | SOCIAL WORKER PROG NOTE PSYCH ---
Social Work Progress Note Progress Note Concurrent review completed through the online [facility] portal and is listed as "pended." Pended Authorization # [id number] Client Authorization # [id number] Type of Request CONCURRENT
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
[2017-11-08 20:01] VITALS: BP 113/69
[2017-11-09 07:15] VITALS: BP 120/76
--- NOTE | 2017-11-09 16:25 | CP SOUTH PROGRESS NOTE PSYCH ---
Psych (Inpt) Progress Note Progress Note Include the following elements, when applicable: Involvement in the active treatment of the patient with behavioral observations of the patient and the patient's response to the treatment. Review of the ongoing treatment process in the context of the treatment plan. Indication of how multi-disciplinary staff members are carrying out the treatment plan. Plans for future interventions and recommendations for revision of the treatment plan. Liaison with other physicians/providers. Progress Note: Case and treatment plan discussed in team meeting. Staff reports that the patient is endorsing suicidal ideation. Isolates in her room. Reluctant to shower. Patient seen at at 3:11 PM. I asked the patient how she is feeling and she responded "I don't know, a little crazed." Reports web content & social media manager asked her some questions "and I was all manic." Patient complains of inability to focus. Affect is mildly anxious. Rates anxiety 10/10 and sad mood 10/10. Feels hopeless, helpless, worthless and guilty. Reports suicidal ideation, stating that she does not care if she is or alive. Claims she tried to overdose with pills 2 Saturdays ago but her friend would not let her. Denies homicidal ideation. Denies auditory and visual hallucinations but she experiences a whooshing in her head that is chronic. Reports occasional paranoid ideation but not at present. States she feels very safe here. Reports she slept very well last night. Appetite is variable. Energy is not so good. Tolerating medications well. She does not think that Ritalin is helping. She agrees to an increase in Zoloft dose to 150 mg daily. IMPRESSION: Slow progress. Continue present treatment plan. Monitor response to increase in Zoloft dose. Placement remains problematic but we are exploring options. Anticipate discharge on .
--- NOTE | 2017-11-09 18:43 | SOCIAL WORKER PROG NOTE PSYCH ---
Social Work Progress Note Progress Note This play writer met with patient. She reported her mood as "horrible" with ongoing SI. When asked about a plan, patient stated "I always have a plan." She refused to specify further and stated that she is safe on this unit. She stated that she would immediately inform staff if feeling unsafe. She denied HI/ hallucinations. This was relayed to nursing. Patient presented as tearful, pressured speech and difficult to redirect. She was agreeable to meeting with Smiley Aggarwal to explore housing options, specifically [place]. She stated that she has also learned of a (possible) longer term housing option in [place] (aside from [facility]) and will obtain the name of the facility this afternoon or evening. Patient stated that there is a warrant for her arrest due to missing court dates while she was in the hospital. It appeared that she was referring to multiple dates since June 2017. She stated that she spoke with Medical Records and was given FRANSICO's to complete. She stated that she struggled to do so and this play writer was unsuccessful in assisting her. She agreed to have this play writer contact Medical Records to see if someone could assist with the matter. Upon doing so, a medical records staff came to the unit to assist the patient in completing the FRANSICO's.
--- NOTE | 2017-11-09 19:14 | SOCIAL WORKER PROG NOTE PSYCH ---
Social Work Progress Note Progress Note DCF 136 faxed Form filed in patient's chart.
[2017-11-09 19:23] VITALS: BP 106/64
[2017-11-10 07:54] VITALS: BP 107/59
--- NOTE | 2017-11-10 16:02 | CP SOUTH PROGRESS NOTE PSYCH ---
Psych (Inpt) Progress Note Progress Note Include the following elements, when applicable: Involvement in the active treatment of the patient with behavioral observations of the patient and the patient's response to the treatment. Review of the ongoing treatment process in the context of the treatment plan. Indication of how multi-disciplinary staff members are carrying out the treatment plan. Plans for future interventions and recommendations for revision of the treatment plan. Liaison with other physicians/providers. Progress Note: Case discussed with nurse, who reports that the patient is anxious about leaving. Said nothing has changed in her life. Patient seen at 2:27 PM. States "I don't know, anxious as ever." She does appear anxious and is jiggling her legs. Reports she is trying to get herself settled but there is one obstacle after another. Reports she has an interview next Wednesday at [facility] in [place]. States she cannot go to a snf that has lock-outs during the day because of her COPD. Reports mood is "just anxious, anxious, anxious." States she has no hope and she does not care. Rates anxiety 5000/10 and sad mood /10. Feels hopeless, helpless, worthless and guilty. Reports suicidal ideation. Denies suicide plan. Denies suicide intent. Denies homicidal ideation. Denies auditory and visual hallucinations and paranoid ideation. Sleep: Reports she was up and down all night. Appetite is variable. Energy: "I'm up." Tolerating medications. Patient and I decided to stop her Ritalin, which may be contributing to her anxiety. She was advised to use PRN gabapentin. She was not aware that it is available. IMPRESSION: Slow progress. Continue present treatment plan. Hopefully [facility] can be placed at [facility] while she is awaiting potential placement at [facility]. Monitor response to discontinuation of Ritalin.
--- NOTE | 2017-11-10 18:35 | SOCIAL WORKER PROG NOTE PSYCH ---
Social Work Progress Note Progress Note This service writer met with patient. She reported feeling generally anxious, hopeless and helpless, specifically regarding housing. She stated that she feels unsafe to discharge from the hospital and believes that she would harm herself if she discharged. Patient stated that she called 211 and has scheduled a CAN assessment at [facility] in 11/16/17 between 9am and 12pm. Referrals to [facility] in [place] and [place] were faxed today at 5:43pm. This service writer spoke with Justine at [place] to alert her to the fax. This service writer spoke with Mason at [place] who will leave a message from Geri alerting them to the fax. Both locations will be contacted tomorrow to follow up.
[2017-11-10 19:36] VITALS: BP 151/78
[2017-11-11 07:48] VITALS: BP 117/83
--- NOTE | 2017-11-11 14:18 | SOCIAL WORKER PROG NOTE PSYCH ---
Social Work Progress Note Progress Note I called and left messages for B[facility], and [facility].
--- NOTE | 2017-11-11 14:58 | CP SOUTH PROGRESS NOTE PSYCH ---
Psych (Inpt) Progress Note Progress Note Include the following elements, when applicable: Involvement in the active treatment of the patient with behavioral observations of the patient and the patient's response to the treatment. Review of the ongoing treatment process in the context of the treatment plan. Indication of how multi-disciplinary staff members are carrying out the treatment plan. Plans for future interventions and recommendations for revision of the treatment plan. Liaison with other physicians/providers. Progress Note: Case and treatment plan discussed in team meeting. Staff reports that the patient is denying suicidal ideation. She told staff she is not ready to go because she has no place to go. Has a CANS assessment scheduled for 11/16/17 for [facility]. No behavioral problems on the unit. Interacting with peers. Slept well. Refused a family meeting here. Patient seen at 12:18 PM. She was coloring a mancalla prior to meeting with me in office. Reports she is trying to calm herself down. Reports she feels so anxious, she is crawling out of her skin. Indeed she looks highly anxious and shaky. Denies history of substance abuse. States she is overwhelmed with everything and feels that her life is falling apart. Major risks and benefits of Klonopin were discussed with the patient, including its addictive nature. She was advised to avoid drugs, alcohol and while on this medication. She was advised not to drive or operate heavy machinery if groggy from this medication. We will stop HS Ativan and start Klonopin 0.5 mg b.i.d. Rates anxiety 10+/10. Reports she is always sad and rates sad mood probably a 10/10. Feels hopeless, helpless and guilty. Denies feeling worthless. Reports passive suicidal ideation. Denies homicidal ideation. Denies auditory and visual hallucinations and paranoid ideation. Sleep: Reports she got up a few times but got back to sleep. Appetite is good. Energy is sometimes good. Tolerating medications well. IMPRESSION: Slow progress. Continue present treatment plan. We are looking into placement options to cover the time span until the patient has an intake at [facility]. This could include [facility] in both [place] and [place] and also [facility].
--- NOTE | 2017-11-11 17:48 | SOCIAL WORKER PROG NOTE PSYCH ---
Social Work Progress Note Progress Note [facility] concurrent review entered. Due to message about additional information needed, this telegraphic typewriter operator chief left a vm for Elisabeth Man at [facility] ([phone]): Determination Status: PENDED The services requested require additional review. You will be contacted regarding the status of this request if further information is needed. An authorization decision will be made within the required timeframes and details of that decision may be found under the member's authorization history. Member Name Member ID Member Subscriber Name Subscriber ID RITESH ZHOU [id number] 1960 RITESH ABELARDO [id number] Pended Authorization # Client Authorization # Type of Request [id number] CONCURRENT Date of Admission/ Start of Services Requested From Submission Date 11/01/2017 11/11/2017 11/11/2017 Level of Service Type of Service Level of Care Type of Care INPATIENT/[facility] Mental Health Inpatient Inpatient [facility] - Inpatient Hospital
--- NOTE | 2017-11-11 18:35 | SOCIAL WORKER PROG NOTE PSYCH ---
Social Work Progress Note Progress Note This data analyst report writer met with patient. I informed the patient that the [facility] completed a screening, but does not have any beds at this time. The [place] location will call when a bed is available and will not conduct a screening prior to that. Patient called the [facility] [place], however learned that she would need to leave during the day and did not pursue this further. Patient was also informed that Smiley Aggarwal completed a referral to [facility] and that Carolyn Carrion from [facility] would meet with her today. Patient continues to report SI. She denied HI/hallucinations. Patient inquired about the list of dates to be provided to the tool carrier' s Office and the [employer] Office. We reviewed the list of [facility] dates, however, she was adament that all dates, not only [facility] admissions, need to be submitted - this includes ER and inpatient medical admissions. This data analyst report writer spoke with Medical Records who printed out this list and stated that it could be faxed upon approval by the patient. We reviewed the list of dates/ information on the list. She was agreeable to Medical Records faxing this list/ print out to the tool carrier's Office and the Vice President [employer]'s Office. This data analyst report writer informed medical records and then ifnormed the patient was it was confirmed that the list had been faxed.
[2017-11-11 19:40] VITALS: BP 127/82
[2017-11-12 07:40] VITALS: BP 107/72
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
--- NOTE | 2017-11-12 18:13 | SOCIAL WORKER PROG NOTE PSYCH ---
Social Work Progress Note Progress Note This policy writer met with patient. She reported ongoing SI though feels safe on this unit. She stated that she had been isolating today, mostly due to being tired from not sleeping well last night. Patient denied HI/hallucinations. She signed a CCT release. This policy writer spoke with Abram with [facility] ([phone]) who stated that he would continue to work with her at this time. He also inquired about a group home facility and contact [facility]. This policy writer left a message for Denia Thacker in response to Abram's request. This policy writer spoke with Dr. Donnelly and a group home facility does not appear to be indicated. We reviewed the following: -[facility] [place]: Smiley Aggarwal spoke with this location and was informed that they do not have any beds available today -[facility] in [place]: Smiley Aggarwal conducting a phone screening with Justine who stated that they would be unable to accept the patient due to her multiple medical issues -[facility]: this policy writer contacted [facility] who stated that they are unable to identify the wait time for the wait list. Once the patient is accepted and resides there she will not be required to leave during the day ( compared to some other shelters) -[facility] is exploring IOP options in the [place] area. [facility], as recommended by [facility], only appear to provide treatment to dual/substance use clients.
[2017-11-12 19:32] VITALS: BP 146/70
[2017-11-13 07:51] VITALS: BP 101/76
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
[2017-11-13 19:30] VITALS: BP 102/59
[2017-11-14 07:58] VITALS: BP 118/74
--- NOTE | 2017-11-14 19:09 | CP SOUTH PROGRESS NOTE PSYCH ---
Psych (Inpt) Progress Note Progress Note Include the following elements, when applicable: Involvement in the active treatment of the patient with behavioral observations of the patient and the patient's response to the treatment. Review of the ongoing treatment process in the context of the treatment plan. Indication of how multi-disciplinary staff members are carrying out the treatment plan. Plans for future interventions and recommendations for revision of the treatment plan. Liaison with other physicians/providers. Progress Note: Case discussed with charge nurse in AM. Nano reports coloring books helps her with anxiety and restlessness. Slept some hours last evening. Still reports pervasive feelings of hopelessness and helplessness and sense of lack of purpose in life. Afraid what she migth do if she is discharged or "alone" Here in unit likes group activities and does not intent to act on any suicidal ideation. Denies any psychotic phenomenology. No flashbacks or intrusive memories. Took first dose of clonidine . Reports dry mouth. No other SE. Pt had questions about [employer] benefits. MSE Middle age woman. Fairly groomed. cooperative. good eye contact. NO SI/HI. No AVH organized, linear with restricted affect. AAOx3 I/J fair. A/P 57 y/o Female. MDD/ PTSD Here with worsening depression and pervasive SI. Multiple psychosocial issues. Overall tolerating medication reigmen Will continue same tx plan.
[2017-11-14 19:56] VITALS: BP 109/63
[2017-11-14 19:59] VITALS: BP 141/79
[2017-11-15 07:43] VITALS: BP 111/69
--- NOTE | 2017-11-15 13:47 | CP SOUTH PROGRESS NOTE PSYCH ---
Psych (Inpt) Progress Note Progress Note Include the following elements, when applicable: Involvement in the active treatment of the patient with behavioral observations of the patient and the patient's response to the treatment. Review of the ongoing treatment process in the context of the treatment plan. Indication of how multi-disciplinary staff members are carrying out the treatment plan. Plans for future interventions and recommendations for revision of the treatment plan. Liaison with other physicians/providers. Progress Note: Case discussed with charge nurse in AM. Nano reports she has sore throat today and is not feelign well physically. Yesterday spent a good portion of the day coloring. " only thing that calms me down" Sleep was fragmented. Still reports pervasive feelings of hopelessness and helplessness and intermittent SI. No specific plan or intent " If I get a therapist outside I'll be fine" No flashbacks or intrusive memories. Anxiety remains. Toleratign meds. MSE Middle age woman. poorly groomed. cooperative. good eye contact. NO SI/HI. No AVH organized, linear with restricted affect. AAOx3 I/J fair. A/P 57 y/o Female. MDD/ PTSD Here with worsening depression and anxiety.more future oriented and thinking about discharge. Overall tolerating medication reigmen Will continue same tx plan.
[2017-11-15 19:50] VITALS: BP 108/72
[2017-11-16 07:53] VITALS: BP 107/66
--- NOTE | 2017-11-16 12:16 | SOCIAL WORKER PROG NOTE PSYCH ---
Social Work Progress Note Progress Note Determination Status: PENDED The services requested require additional review. You will be contacted regarding the status of this request if further information is needed. An authorization decision will be made within the required timeframes and details of that decision may be found under the member's authorization history. Member Name Member ID Member Subscriber Name Subscriber ID RITESH ZHOU [id number] 1960 RITESH ZHOU [id number] Pended Authorization # Client Authorization # Type of Request [id number] CONCURRENT Date of Admission/ Start of Services Requested From Submission Date 11/01/2017 11/16/2017 11/16/2017 Level of Service Type of Service Level of Care Type of Care INPATIENT/[facility] MENTAL HEALTH INPATIENT INPATIENT [facility]OSP[facility] - INPATIENT HOSPITAL Reason Code P76 Provider Name & Address Provider ID Provider Alternate ID NPI # for Authorization [facility] [id number] [facility] [id number]
--- NOTE | 2017-11-16 15:48 | CP SOUTH PROGRESS NOTE PSYCH ---
Psych (Inpt) Progress Note Progress Note Include the following elements, when applicable: Involvement in the active treatment of the patient with behavioral observations of the patient and the patient's response to the treatment. Review of the ongoing treatment process in the context of the treatment plan. Indication of how multi-disciplinary staff members are carrying out the treatment plan. Plans for future interventions and recommendations for revision of the treatment plan. Liaison with other physicians/providers. Progress Note: Dr. Canada's notes reviewed. Case and treatment plan discussed in team meeting. Staff reports that the patient endorses suicidal ideation. Dr. Canada started the patient on clonidine. Patient seen at 10:36 AM with social media senior associate and with medical student. Patient's affect was initially calm and blunted to euthymic. States "I'm anxious as anxious can be." Reports she has nowhere to go and cannot move forward with her life. Rates anxiety 1000/10 and sad mood 10/10. Feels hopeless and helpless. Feels worthless and guilty at times. Reports she has suicidal ideation "probably if I was to go out that door." I recommended that the patient sign a release of information form so we can speak with her daughter. Patient became animated and agitated about this. IMPRESSION: Slow progress. Continue present treatment plan. The patient remains homeless and she is unable to identify any housing options. We continue to explore institutional options but have had no success with it thus far.
--- NOTE | 2017-11-16 17:18 | SOCIAL WORKER PROG NOTE PSYCH ---
Social Work Progress Note Progress Note Patient described her mood as "anxious" with racing thoughts. She stated that she had felt better over the weekend. Patient reported ongoing, daily SI. She denied any plan to act on her SI and attributed the SI to "I have no where to go." Patient acknowledged the need to discharge and begin working on treatment and housing: "I know I need to get out and get on my feet." This typewriter ribbon winder met with patient. Patient stated that she did not want to meet with Dr. Donnelly, however, was agreeable to doing so with this typewriter ribbon winder. Discharge was discussed and today's discharge has been delayed until tomorrow to allow the patient time to contact any family/friends that she might be able to stay with. Dr. Donnelly attempted to identify individuals whom the patient could call in en effort to identify a temporary place to stay. Specifically, Dr. Donnelly inquired about the patient's daughter. Patient became increasingly agitated during this meeting, stating that she had no one to call and ultimately left the room. This typewriter ribbon winder called [facility] in [place] and spoke with Hawa who stated that they patient would not be accepted into their program if her discharge plan is a longterm. This typewriter ribbon winder also spoke with Justine and informed her, per Dr. Donnelly, that the patient does not need oxygen. Justine stated that there were other medical concerns that prevented the patient from being accepted. As reviewed with the treatment team this morning, a skilled need is not indicated. This typewriter ribbon winder spoke with [facility] who stated that they only provide dual programs. Smiley Aggarwal will continue to explore other IOP's, including [facility] in [place]. This typewriter ribbon winder met with the patient and reviewed the conversations with both [facility]. Patient maintains that she has no one to call, including her children. She was not willing to sign an FRANSICO to allow this typewriter ribbon winder to contact her children. We reviewed other options/attempts made thus far: -[facility] - no available beds, patient does not want to go due to needing to leave during the day -[facility] - [phone], will not accept anyone without a place to go ( this does not include shelters) -[facility] - this typewriter ribbon winder spoke with Elisabeth Man at [facility] ([phone]) - no additional resources -[facility] - this typewriter ribbon winder spoke with [facility] ([phone]) who stated that their respite beds are full -[facility] - patient was informed of Bashir Stanton's food baskets -CAN Assessment - patient scheduled a new CAN assessment for 11/23/17 at [facility] -outpatient/IOP - patient agreeable to a referral to [facility] in [place] (in progress by Smiley Aggarwal) and also a referral to IOP if needed -A/Abram Carrion [phone], left at 5:16pm today informing of discharge tomorrow, change in the CAN assessment and updates thus far
[2017-11-16 20:23] VITALS: BP 123/76
[2017-11-17 07:54] VITALS: BP 127/80
[2017-11-17] MEDS ORDERED: GABAPENTIN300 M2 PO ×3 (11:53→12:03)
[2017-11-17] MEDS ORDERED: LORATADINE10 M1 PO (11:53)
[2017-11-17] MEDS ORDERED: NICORELIEF2 MG PO (11:53)
[2017-11-17] MEDS ORDERED: IBUPROFEN600 M1 PO (11:53)
[2017-11-17] MEDS ORDERED: VENTOLIN HFA18 GM INH (11:53)
[2017-11-17] MEDS ORDERED: KLONOPIN0.5 M1 PO (11:53)
[2017-11-17] MEDS ORDERED: CLONIDINE HCL0.1 MG PO (11:53)
[2017-11-17] MEDS ORDERED: ZOLOFT100 M1 PO (12:00)
[2017-11-17] MEDS ORDERED: VITAMIN D250000 UNIT PO (12:01)
[2017-11-17] MEDS ORDERED: SYMBICORT 16010.2 GM INH (12:01)
[2017-11-17] MEDS ORDERED: METFORMIN HCL500 M3 PO (12:01)
[2017-11-17] MEDS ORDERED: ONETOUCH ULTRA1 EACH TOP (12:18)
[2017-11-17] MEDS ORDERED: LANCETS1 EACH TP (12:18)
--- NOTE | 2017-11-17 12:30 | Patient Discharge Instructions ---
Psych Discharge Inst General Discharge Information Reason for Admission: Made suicidal statements. Psy Discharge Primary Diag+ Unspecified depression Psy Discharge Secondary Diag+ COPD Asthma Diabetes mellitus type 2 Vitamin D deficiency Overweight Summary Tests/Major Procedures Lab ALT 32 U/L 11/01/17 1728 AST 21 U/L 11/01/17 1728 BUN 11 mg/dL 11/01/17 1728 Calcium 9.5 mg/dL 11/01/17 1728 Carbon Dioxide 22 mmol/L 11/01/17 1728 Chloride 108 mmol/L H 11/01/17 1728 Creatinine 0.9 mg/dL 11/01/17 1728 Estimated GFR > 60 ml/min 11/01/17 1728 Glucose 125 mg/dL H 11/01/17 1728 Potassium 4.1 mmol/L 11/01/17 1728 Sodium 139 mmol/L 11/01/17 1728 Hct 46.4 % 11/01/17 1728 Hgb 15.9 G/DL 11/01/17 1728 Lymphocytes % 24.0 % 11/01/17 1728 Monocytes % 8.1 % 11/01/17 1728 Plt Count 265 /CUMM 11/01/17 1728 RBC 5.52 /CUMM H 11/01/17 1728 RDW 15.3 % H 11/01/17 1728 WBC 7.4 /CUMM 11/01/17 1728 Serum Alcohol < 10.0 MG/DL 11/01/17 1728 Hyaline Casts FEW H 11/01/17 1719 Ur Epithelial Cells MANY H 11/01/17 1719 Ur Leukocyte Esterase TRACE H 11/01/17 1719 Ur Microscopic SEDIMENT EXAMINED 11/01/17 1719 Urine Bilirubin NEG@ICTO 11/01/17 1719 Urine Clarity HAZY H 11/01/17 1719 Urine Glucose NEG MG/DL 11/01/17 1719 Urine Hemoglobin TRACE-INTACT 11/01/17 1719 Urine Ketones TRACE H 11/01/17 1719 Urine Mucus MANY H 11/01/17 1719 Urine Protein 100 MG/DL H 11/01/17 1719 Urine RBC FEW /HPF H 11/01/17 1719 Urine Urobilinogen 1.0 EU/dl 11/01/17 1719 Urine WBC 15-25 /HPF H 11/01/17 1719 Patient : RITESH ZHOU Acct: [id number] DR: Po Donnelly MD Birthdate: [birth year] Age/Sex: 57/F Unit: [id number] Loc: [place] [address] Status : ADM IN SPEC #: [id number] PRANAV: 11/04/171216 STATUS: COMP RECD: 11/04/1713[address]: Tre VILLARREAL,Hong SOURCE: URINE ROUT ENTR: 11/04/[address]: Giuliana Austin LCSW SPDESC: URIN CLEAN Teagan VILLARREAL,Teagan Lancaster MD,Nasreen ORDERED: URINE CULTURE COMMENT: TRIO Procedure Result > URINE CULTURE Final 11/06/171116 MULTIPLE COLONY TYPES PRESENT CONSISTENT WITH CONTAMINATION. PLEASE RE-SUBMIT A CLEAN CATCH URINE IF SYMPTOMS PERSIST. Patient : RITESH ZHOU Acct: [id number] DR: Po Donnelly MD Birthdate: [birth year] Age/Sex: 57/F Unit: [id number] Loc: [address] Status : ADM IN SPEC #: [id number] PRANAV: 11/01/17 STATUS: COMP RECD: 11/01/[address]: Dao Miller SOURCE: URINE ROUT ENTR: 11/01/[address]: Teagan VILLARREAL,Teagan SPDESC: URIN CLEAN ORDERED: URINE CULTURE COMMENT: ADDED UC @ 1900, SP Procedure Result > URINE CULTURE Final 11/03/171622 MULTIPLE COLONY TYPES PRESENT CONSISTENT WITH CONTAMINATION. PLEASE RE-SUBMIT A CLEAN CATCH URINE IF SYMPTOMS PERSIST. SERVICE DATE: 11/01/17 EXAM TYPE: RAD - XRY-CHEST XRAY, TWO VIEWS EXAMINATION: XR CHEST CLINICAL INFORMATION: 57-year-old female patient with a presumptive diagnosis of pneumonia or CHF. Chest pain. Shortness of breath. Cough. COMPARISON: Last chest x-ray done September 12, 2017. TECHNIQUE: 2 views of the chest were obtained. FINDINGS: The heart is normal in size. Pulmonary vascularity remains normal. Lungs are clear showing no evidence of edema or consolidation. No pleural effusion is present. IMPRESSION: No evidence of pneumonia or CHF. EKG 11/02/17 showed sinus rhythm @ 66, improved since previous tracing, normal EKG, QT 436, QTc 457. Studies Pending at [place]: None. Patient Instructions Contact Information Your Psychiatrist on [facility] was Po Donnelly MD * If you are experiencing an emergency related to this hospitalization, please call [phone] to contact the treating psychiatrist or the psychiatrist-on- call. * To Request a copy of your medical records, please contact the Medical Records Department at [phone]. * To request results of studies pending at the time of discharge, please call [phone]. * Continue your Medications until directed to stop by your Healthcare provider. General Medication Information Please continue to take your new medications and your continued home medications , unless otherwise indicated on your discharge medication list, or unless directed by your MD or OCCUPATIONAL THERAPY DEPARTMENT CHAIR to stop them. Special Instructions Diet Diabetic Activity Normal Other Inst/Recommendations Please see PCP for medical problems and abnormal labs listed above. - Tobacco Use Treatment Offered Post DC Medications Offered: Script Given-See Med List Post DC Tobacco Treatment Plan: [facility] Program Appt Date: 11/17/17 Program Appt Time: 1600 - EtOH/Drug Use D/O Treatment Offered Post DC Medications Offered: NA-No EtOH/Drug Use D/O Post DC EtOH/SubAbuse TX Plan: NA-No EtOH/Drug Use D/O Metabolic Screening ([x]) Not Applicable, patient not on a neuroleptic. OR () Patient on a neuroleptic(s) . Enter below results for Hemoglobin A1C, and lipid panel if obtained during the last 365 days. BMI: 41.600 Blood Pressure: 127/80 Laboratory Results From [facility] (If applicable): Advance Directives Does the Patient have Medical Advance Directives No/Refused further info Does Pt have Psychiatric Advance Directives? No/Refused further info Does Patient have a Designated Surrogate Decision Maker: No Information About Psychiatric Advance Directives Provided? Refused Discharge Plan Post Hospital Treatment Plan: Referred to [facility]. Patient is looking for housing.
--- NOTE | 2017-11-17 16:45 | CP SOUTH PROGRESS NOTE PSYCH ---
Psych (Inpt) Progress Note Progress Note Include the following elements, when applicable: Involvement in the active treatment of the patient with behavioral observations of the patient and the patient's response to the treatment. Review of the ongoing treatment process in the context of the treatment plan. Indication of how multi-disciplinary staff members are carrying out the treatment plan. Plans for future interventions and recommendations for revision of the treatment plan. Liaison with other physicians/providers. Progress Note: Case and treatment plan. Staff reports that the patient endorses suicidal ideation. Yesterday, she did not sign requested release of information form for us to speak with her daughter. Patient seen at 11:29 AM with social service director. Patient was reluctant to sign release of information for us to speak with daughter, stating "we don't talk; she's not going to answer." Patient then did sign a release of information form and telephonic family meeting took place, was brief, and daughter could not provide any recommendations to help with the patient's housing situation. We have arranged a [facility] intake for tomorrow morning. Patient appears awake and alert. States "I have no clue what I'm going to do." Reports suicidal ideation. Denies homicidal ideation. Denies auditory and visual hallucinations and paranoid ideation. Reports sleep is not good, appetite is variable and energy is "I don't know." Tolerating medications but she still feels anxious, stating she is crawling out of her skin and she can't think. Although the patient voices ongoing suicidal ideation, she has been safe here since admission 11/01/17. She has no history of suicide attempts and no family history of suicide attempts. IMPRESSION: The patient has achieved maximum hospital benefit. I believe at this point she is malingering due to homelessness. We have been unable to identify any housing for the patient. Specifically, daughter is unable to provide housing. Patient has been denied by [facility] in both [place] and [place]. She is not a candidate for [facility]. She is on the [address] waiting list but the patient maintains that she can't stay in a residential where she is kicked out every morning, as she has COPD. Suggestion was made that patient go to a rehab but she is not a substance abuser. She also does not qualify for [employer], because she does not use substances. Suggestion was made that we do an [facility] application, but the patient does not have a senior living need. Per Gabriel Pierre MD's recommendation, discharge has been canceled for today.
--- NOTE | 2017-11-17 19:09 | SOCIAL WORKER PROG NOTE PSYCH ---
Social Work Progress Note Progress Note This sports book writer met with patient. We reviewed options that had been explored for housing. Patient was not willing to call 211 again (in an effort to identify an emergency detention) as she stated that she is continuously informed that a CAN assessment must be completed and there are wait lists for all shelters. As discussed with the team this morning, patient was anticipated to discharge today. She stated that she had no where to stay when she leaves. In an effort to identify other options, we spoke wtalexandro Guillermoah Bhavna at [facility] ([phone]) and was informed that the patient must be a [facility] patient and must be referred by a [facility] provider. Rima stated that other medical respite programs are hospital specific as well. This sports book writer spoke with Hawa at the [facility]. Hawa stated that the patient may be provided with their phone number to follow up (including after discharge) should she identify a discharge plan other than a detention. Patient reports ongoing SI. This sports book writer joined a meeting that had begun with Dr. Donnelly and the patient. During this meeting, we discussed efforts made to identify housing options. Per this meeting, this sports book writer will contact [facility] to inquire about their program (a vm was left following this meeting). Patient was agreeable to sign an FRANSICO for her daughter. Patient confirmed and we (patient, Dr. Donnelly and this sports book writer) called her daughter, Charito Alaniz ([phone]), who stated that she was not aware of any other housing options that could be explored. We thanked Charito for taking the call and the call ended. Patient became agitated and tearful. The meeting ended. Patient was not willing to discuss further after Dr. Donnelly left the room and she left as well. This sports book writer was informed by Smiley Aggarwal that the patient spoke with KATHIE at [place] and was not accepted into their program due to the barriers associated with homelessness that might present in her being able to attend their IOP. This sports book writer spoke [facility] Mayra Fong, clinician with [facility], to make a referral. Mayra Fong will review the case with Kaylene Freire LPC. This was further reviewed during the psychiatry staff meeting and patient will be offered a IOP appointment. An intake appointment could not be offered today and patient will be offered an intake for tomorrow morning. Jen stated that if the patient does not discharge today, she can conduct the intake tomorrow around 8: 30am on [facility]. This sports book writer reviewed the case with Magda Vanegas LCSW. This sports book writer informed [facility] nursing staff of the discharge plan. Nursing informed this sports book writer that they would contact their supervisor force adjustment with concerns about discharge. This sports book writer was contacted by Valeria Luis regarding the patient. This sports book writer was contacted by Arabella Bear who informed that she had received a call from the patient's daughter, Charito Alaniz. With the patient's approval, the patient and this sports book writer called her daughter back. She was informed of the attempts to secure housing and the barriers that we experianced. During the time of this call, [facility] nursing informed this sports book writer that the discharge had been cancelled for today. Charito requested a family meeting, which patient was agreeable to, and it was scheduled for 11/18/17 at 10:15am. Magda Vanegas and Dr. Donnelly were informed of this family meeting. Patient reported feeling anxious, though relieved, about the family meeting tomorrow.
[2017-11-17 19:42] VITALS: BP 147/77
[2017-11-18 08:20] VITALS: BP 140/93
[2017-11-18 09:27] VITALS: BP 140/93
[2017-11-18] MEDS ORDERED: KLONOPIN1 M1 PO (11:37)
[2017-11-18] MEDS ORDERED: Glucometer SC (11:42)
[2017-11-18] MEDS ORDERED: ONETOUCH LANCE1 EACH TOP (11:51)
[2017-11-18] MEDS ORDERED: ONETOUCH ULTRA1 EACH TOP (11:53)
--- NOTE | 2017-11-18 17:40 | SOCIAL WORKER PROG NOTE PSYCH ---
See Addendum Social Work Progress Note Progress Note This fiction and nonfiction prose writer met with the patient and her daughter, Charito Alaniz, for a family meeting. Patient informed Dr. Donnelly that she did not want him to attend the meeting. Patient discussed stressors with housing and where she was living prior to this admission. She shared why she cannot return to that living arrangement. Charito was informed of patient's SI during this admission. Patient denied SI at this time. Charito was particularly interested in the discharge plan and stated that if the patient were to stay with her it would be temporary. Charito was informed that the patient has a CAN assessment with [facility] on 11/23/17 and that it does not guarantee a bed and if accepted, patient will be placed on a wait list without a known wait time. Charito was also informed of the referral to crisis and respite. Charito did not feel it would be appropriate for the patient to go to their program first before staying with her as it would cause her to have to start an IOP in [place] and then transfer to [place] (where Charito lives). Charito was also informed of [facility] and we spoke with Meron Elkins (ext. [phone]) who described the services in greater detail. Patient will be able to continue working with Abram despite staying with her daughter in [place]. Patient denied current SI and stated that she felt safe staying with her daughter. Patient's daughter requested to include Dr. Donnelly in this meeting, which the patient was agreeable to. Additional questions were addressed by Dr. Donnelly including regarding medications. Patient, Charito and this fiction and nonfiction prose writer identified a safety plan in which the patient would "call my counselor" and utilize the crisis numbers and warm lines ( accepted upon discharge) if in crisis. Charito also made it clear that she would be available to her daughter if needed. Patient and her daughter created a contract or living agreement in which they identified what they needed/expected of one another if the patient should be able to stay there. Due to patient staying in [place], she requested a referral to [facility] for IOP rather than pursuing [facility] (due to the distance/commute). Patient stated that she will continue to see her medical providers in the [place] area and will schedule appointments as needed. She stated that she did not need any additional appointments/referrals. Patient stated that she does not have any access to guns; Charito stated that she does not have any guns in the home. Charito was agreeable to the patient staying with her upon discharge temporarily - she did not identify a specific time frame. Patient will utilize [employer] for transportation to Charito's home this afternoon ([address] [place] [address]) . Referral to [facility] will be made after this meeting. [facility]: She accepted an intake appointment time for 11/25/17 at 10am. This fiction and nonfiction prose writer spoke with Charito by phone to inform of the intake with [facility]. Patient may consider changing the CAN assessment to a [facility] which Charito was in agreement. Patient will discuss this further with Abram Carrion ([facility]). Charito was also provided with Meron Elkins's number ( [facility]) as Meron had offered during the call earlier today. Charito stated that she felt comfortable with the discharge plans and was informed that a [employer] ride would be scheduled. [employer] ride scheduled at 4:03pm with Cecilio (Ref # [id number]) for immediate moss picker Second call to [employer] at 4:51pm with Avelino, this fiction and nonfiction prose writer informed that the cab company is being identified Third call to [employer] at 5:35pm with Sabrina, who stated that the ride is on the way and will call upon arrival At patient's request, this fiction and nonfiction prose writer inquired about [employer] providing medical cabs for transportation. They requested a Specialized Transportation Request form from her primary care provider indicating the need for a medical cab rather than bus tokens. They stated that the form could be obtained from their website. Patient was informed of this and will contact her primary care provider tomorrow. It was suggested during the CCT meeting today that the [facility] in [place] is considered. This fiction and nonfiction prose writer spoke with Jeet ([phone]) at that facility and learned that they provide housing to individuals with substance use and therefore individuals without substance use would not be appropriate referrals. This fiction and nonfiction prose writer left a vm for Abram Carrion ([phone]) confirming today's discharge and also informed him of this. Faxed Referral(s) Referred To: [facility] Transition of Care Documents sent: Health Summary Faxed to: [facility] Fax #: [phone] Faxed by: Adryan KINNEYW Date faxed: 11/18/17 Time Faxed: [phone]
--- NOTE | 2017-11-18 17:53 | CP SOUTH PROGRESS NOTE PSYCH ---
Psych (Inpt) Progress Note Progress Note Include the following elements, when applicable: Involvement in the active treatment of the patient with behavioral observations of the patient and the patient's response to the treatment. Review of the ongoing treatment process in the context of the treatment plan. Indication of how multi-disciplinary staff members are carrying out the treatment plan. Plans for future interventions and recommendations for revision of the treatment plan. Liaison with other physicians/providers. Progress Note: Case and treatment plan discussed in team meeting. Staff reports that the patient is denying suicidal ideation. Family meeting was scheduled with daughter, Charito, for 10:15 AM. Patient seen at 10:31 AM. She initially did not want me to meet with her daughter. Patient reports feeling anxious about upcoming family meeting. Rates anxiety /10 and sad mood 10/10. Reports feeling hopeless and helpless. Reports feeling worthless sometimes and guilty sometimes. Reports having suicidal ideation sometimes but also states she will be safe if living at daughter's home. Denies homicidal ideation. Denies auditory and visual hallucinations and paranoid ideation. Reports sleep was very restless last night. Reports appetite is variable and energy is not much. Reports tolerating medications well. Agrees to increase Klonopin dose to 1 mg twice daily. Patient was reminded that Klonopin can be addictive and that she should avoid driving or operating heavy machinery if groggy from this medication. Patient's daughter later requested that I join family meeting and patient consented to this. Patient's and daughter's questions were addressed. IMPRESSION: Condition improved. Okay for discharge today to live with daughter and to follow-up at an [facility] in [place].
--- NOTE | 2017-11-18 18:03 | DISCHARGE SUMMARY REPORT-PSYCH ---
Visit Information Visit Dates/Diagnosis' Admission Date: 11/01/17 Discharge Date: 11/18/17 Reason for Admission: Made suicidal statements. Psy Discharge Primary Diag: Unspecified depression Psy Discharge Secondary Diag: COPD Asthma Diabetes mellitus type 2 Vitamin D deficiency Overweight Hospital Course Significant Lab Findings: Lab ALT 32 U/L 11/01/17 1728 AST 21 U/L 11/01/17 1728 BUN 11 mg/dL 11/01/17 1728 Calcium 9.5 mg/dL 11/01/17 1728 Carbon Dioxide 22 mmol/L 11/01/17 1728 Chloride 108 mmol/L H 11/01/17 1728 Creatinine 0.9 mg/dL 11/01/17 1728 Estimated GFR > 60 ml/min 11/01/17 1728 Glucose 125 mg/dL H 11/01/17 1728 Potassium 4.1 mmol/L 11/01/17 1728 Sodium 139 mmol/L 11/01/17 1728 Hct 46.4 % 11/01/17 1728 Hgb 15.9 G/DL 11/01/17 1728 Lymphocytes % 24.0 % 11/01/17 1728 Monocytes % 8.1 % 11/01/17 1728 Plt Count 265 /CUMM 11/01/17 1728 RBC 5.52 /CUMM H 11/01/17 1728 RDW 15.3 % H 11/01/17 1728 WBC 7.4 /CUMM 11/01/17 1728 Serum Alcohol < 10.0 MG/DL 11/01/17 1728 Hyaline Casts FEW H 11/01/17 1719 Ur Epithelial Cells MANY H 11/01/17 1719 Ur Leukocyte Esterase TRACE H 11/01/17 1719 Ur Microscopic SEDIMENT EXAMINED 11/01/17 1719 Urine Bilirubin NEG@ICTO 11/01/17 1719 Urine Clarity HAZY H 11/01/17 1719 Urine Glucose NEG MG/DL 11/01/17 1719 Urine Hemoglobin TRACE-INTACT 11/01/17 1719 Urine Ketones TRACE H 11/01/17 1719 Urine Mucus MANY H 11/01/17 1719 Urine Protein 100 MG/DL H 11/01/17 1719 Urine RBC FEW /HPF H 11/01/17 1719 Urine Urobilinogen 1.0 EU/dl 11/01/17 1719 Urine WBC 15-25 /HPF H 11/01/171718 Patient : RITESH ZHOU Acct: [id number] DR: Po Donnelly MD Birthdate: [birth year] Age/Sex: 57/F Unit: [id number] Loc: [place] [address] Status : ADM IN SPEC #: [id number] PRANAV: 11/04/17 STATUS: COMP RECD: 11/04/[address]: Tre VILLARREAL,Hong SOURCE: URINE ROUT ENTR: 11/04/[address]: Giuliana Austin LCSW SPDESC: URIN CLEAN Teagan VILLARREAL,Teagan Lancaster MD,Nasreen ORDERED: URINE CULTURE COMMENT: TRIO Procedure Result > URINE CULTURE Final 11/06/17 MULTIPLE COLONY TYPES PRESENT CONSISTENT WITH CONTAMINATION. PLEASE RE-SUBMIT A CLEAN CATCH URINE IF SYMPTOMS PERSIST. Patient : RITESH ZHOU Acct: [id number] DR: Po Donnelly MD Birthdate: [birth year] Age/Sex: 57/F Unit: [id number] Loc: [address] Status : ADM IN SPEC #: [id number] PRANAV: 11/01/17 STATUS: COMP RECD: 11/01/[address]: Dao Miller SOURCE: URINE ROUT ENTR: 11/01/[address]: Teagan VILLARREAL,Teagan SPDESC: URIN CLEAN ORDERED: URINE CULTURE COMMENT: ADDED UC @ 1900, SP Procedure Result > URINE CULTURE Final 11/03/17 MULTIPLE COLONY TYPES PRESENT CONSISTENT WITH CONTAMINATION. PLEASE RE-SUBMIT A CLEAN CATCH URINE IF SYMPTOMS PERSIST. SERVICE DATE: 11/01/17 EXAM TYPE: RAD - XRY-CHEST XRAY, TWO VIEWS EXAMINATION: XR CHEST CLINICAL INFORMATION: 57-year-old female patient with a presumptive diagnosis of pneumonia or CHF. Chest pain. Shortness of breath. Cough. COMPARISON: Last chest x-ray done September 12, 2017. TECHNIQUE: 2 views of the chest were obtained. FINDINGS: The heart is normal in size. Pulmonary vascularity remains normal. Lungs are clear showing no evidence of edema or consolidation. No pleural effusion is present. IMPRESSION: No evidence of pneumonia or CHF. EKG 11/02/17 showed sinus rhythm @ 66, improved since previous tracing, normal EKG, QT 436, QTc 457. Course Complications: None. Consultations: The patient was seen by Dr. Bayron Mann for admission history and physical examination. Please refer to his note for additional information. Allergies: Coded Allergies: hydrocodone (From VICODIN) (Intermediate, NAUSEA 11/01/17) erythromycin base (UNKNOWN 11/01/17) codeine (NAUSEA 11/01/17) Hospital Course/TX Response: The patient was monitored on the unit for safety, anxiety and mood disturbance. She participated in multimodal treatments on the unit. The patient reported chronic suicidal ideation which appeared to be, at least in part, related to her homeless status. The patient initially refused to allow us contact with her daughter, Charito. Ultimately, the patient agreed to this and a family meeting was arranged and the patient's daughter, Charito, will be taking the patient in on a temporary basis. Patient continues to be depressed and anxious but she now is able to commit to safety, since she will be staying at her daughter's home. During this hospital stay, patient was treated with Ativan 1.5 mg nightly. This was later changed to Klonopin 0.5 mg twice daily, which was increased to Klonopin 1 mg twice daily on date of discharge. Patient was also treated with Zoloft 150 mg daily, clonidine and gabapentin. Progress note from date of discharge, 11/18/17: "Case and treatment plan discussed in team meeting. Staff reports that the patient is denying suicidal ideation. Family meeting was scheduled with daughter, Charito, for 10:15 AM. Patient seen at 10:31 AM. She initially did not want me to meet with her daughter. Patient reports feeling anxious about upcoming family meeting. Rates anxiety 10/10 and sad mood 10/10. Reports feeling hopeless and helpless. Reports feeling worthless sometimes and guilty sometimes. Reports having suicidal ideation sometimes but also states she will be safe if living at daughter's home. Denies homicidal ideation. Denies auditory and visual hallucinations and paranoid ideation. Reports sleep was very restless last night. Reports appetite is variable and energy is not much. Reports tolerating medications well. Agrees to increase Klonopin dose to 1 mg twice daily. Patient was reminded that Klonopin can be addictive and that she should avoid driving or operating heavy machinery if groggy from this medication. Patient's daughter later requested that I join family meeting and patient consented to this. Patient's and daughter's questions were addressed. IMPRESSION: Condition improved. Okay for discharge today to live with daughter and to follow-up at an [facility] in [place]." Discharge HBIPS - Tobacco Use Treatment Offered Post DC Medications Offered: Script Given-See Med List Post DC Tobacco Treatment Plan: [facility] Program Appt Date: 12/01/17 Program Appt Time: 1600 - EtOH/Drug Use D/O Treatment Offered Post DC Medications Offered: NA-No EtOH/Drug Use D/O Post DC EtOH/SubAbuse TX Plan: NA-No EtOH/Drug Use D/O Metabolic Screening - Screen if on a Neuroleptic Medication - Metabolic screening should include: - Blood Pressure, BMI, Glucose or Hgb A1c, & a - Lipid profile from within the past 365 days. Metabolic Screening ([x]) Not Applicable, patient not on a neuroleptic. OR () Patient on a neuroleptic(s) . Enter below results for Hemoglobin A1C, and lipid panel if obtained during the last 365 days. BMI: 41.600 Blood Pressure: 140/93 Laboratory Results From [facility] (If applicable): Discharge Instructions General Discharge Information Multiple Neuroleptics: ([x]) Not Applicable OR Document below three failed attempts at monotherapy, or a plan to taper to monotherapy, or augmentation of Clozapine. () Discharge Diet Diabetic Discharge Activity Normal DC Disposition: Will be living with daughter, Referrals Ordered Referrals Provider Referral 11/30/17 For Providers: [[facility]] For Groups: [Smoking Cessation Group] [facility] [address] [phone] Group meets every other Wednesday at 4pm Next group: 11/30/17, at 4pm Provider Referral 11/25/17 For Providers: [[facility]] For Groups: [Intensive Outpatient] Intensive Outpatient (IOP) [address] [phone] IOP Intake appointment: , 11/25/17, at 10am [place] (medical cab): [phone] Provider Referral For Providers: [[facility]] For Groups: [[facility]] [facility] [phone] Prescriptions Stop taking the following medications: Escitalopram Oxalate (Lexapro) 10 MG TABLET ORAL DAILY Qty = 15 Trazodone HCl (Trazodone HCl) 50 MG TABLET ORAL AT BEDTIME as needed for Insomnia Qty = 15 Doxycycline Hyclate (Doxycycline Hyclate) 100 MG CAPSULE ORAL TWICE DAILY Qty = 3 Nicotine (Nicotine Patch) 14 MG/24 HOUR PATCH.TD24 On the skin DAILY Qty = 30 Guaifenesin (Guaifenesin ER) 600 MG TAB.ER.12H ORAL EVERY 12 HOURS Qty = 14 Prednisone (Prednisone) 10 MG TABLET ORAL SEE INSTRUCT Qty = 26 Continue taking these medications: Albuterol Sulfate (Albuterol Sulfate) 2.5 MG/3 ML (0.083 %) VIAL.NEB 3 Milliliters Inhale through mouth EVERY 4 HRS WHILE AWAKE as needed for Shortness of breath Days = 30 Comments: not given in hospital Loratadine (Loratadine) 10 MG TABLET 10 Milligram ORAL DAILY @8 AM Qty = 14 Comments: Last Taken:11/18/17 Time:8am This prescription has been renewed Ibuprofen (Ibuprofen) 600 MG TABLET 1 Tablet ORAL THREE TIMES DAILY as needed for PAIN Qty = 20 Instructions: with food Comments: NOT GIVEN IN HOSPITAL This prescription has been renewed Metformin HCl (Metformin HCl) 500 MG TABLET 1 Tablet ORAL TWICE DAILY Qty = 28 Comments: Last Taken:11/18/17 Time:8am This prescription has been renewed Start taking the following new medications: Albuterol Sulfate (Ventolin Hfa) 90 MCG HFA.AER.AD 2 Puff Inhale through mouth Every 4 hours as needed for SHORTNESS OF BREATH Qty = 1 No Refills Comments: Last Taken:11/13/17 Time:8am Nicotine (Nicorelief) 2 MG GUM 1 Gum ORAL EVERY 2 HOURS NEEDED as needed for nicotine cravings/ withdrawal Qty = 100 No Refills Comments: Last Taken:11/17/17 Time:8am Clonidine HCl (Clonidine HCl) 0.1 MG TABLET 1 Tablet ORAL TWICE DAILY Qty = 28 No Refills Comments: Last Taken:11/18/17 Time:8am Sertraline HCl (Zoloft) 100 MG TABLET 1.5 Tablet ORAL DAILY Qty = 21 No Refills Comments: Last Taken:11/18/17 Time:8am Clonazepam (Klonopin) 1 MG TABLET 1 Tablet ORAL TWICE DAILY Qty = 28 No Refills Gabapentin (Gabapentin) 300 MG CAPSULE 1 Capsule ORAL SEE as needed for anxiety, insomnia Qty = 70 No Refills Instructions: Take 2 caps po q6 hours as needed for anxiety. Take 3 caps po at bedtime. Comments: Last Taken:11/17/17 Time:2pm [Glucometer] UNIT SC 1/2 HR BEFORE BREAKFAST/DINNER Qty = 1 No Refills Lancets (Onetouch Lancets) 1 EACH EACH 1 Lancet On the skin 1/2 HR BEFORE BREAKFAST/DINNER Qty = 100 No Refills Instructions: may substitute brand to any generic Blood Sugar Diagnostic (Onetouch Ultra Test Strips) 1 EACH STRIP 1 STRIP On the skin 1/2 HR BEFORE BREAKFAST/DINNER Qty = 100 No Refills Instructions: may substitute brand to match glucometer The following medications have been changed: Old: Budesonide/Formoterol Fumarate (Symbicort 160-4.5 Mcg Inhaler) 160 MCG-4.5 MCG/ ACTUATION HFA.AER.AD 2 Puff Inhale through mouth TWICE DAILY Qty = 1 New: Budesonide/Formoterol Fumarate (Symbicort 160-4.5 Mcg Inhaler) 160 MCG-4.5 MCG/ ACTUATION HFA.AER.AD 2 Puff Inhale through mouth TWICE DAILY Qty = 1 Comments: Last Taken:11/18/17 Time:8am Old: Ergocalciferol (Vitamin D2) (Vitamin D2) 50,000 UNIT CAPSULE 50,000 International Unit ORAL ONCE A WEEK Qty = 4 New: Ergocalciferol (Vitamin D2) (Vitamin D2) 50,000 UNIT CAPSULE 1 Capsule ORAL ONCE A WEEK Qty = 2 Comments: Last Taken:11/15/17 Time:8am Other Inst/Recommendations Please see PCP for medical problems and abnormal labs listed above. Studies Pending at Discharge None. Copies To: [facility] IOP
--- NOTE | 2017-11-20 13:28 | IP INCIDENTAL NOTE PSYCH ---
Incidental Note Notation: TO: [facility] FAX: [phone] PHONE: [phone] Po Donnelly MD -- [facility] [phone] -- [place] [id number] [facility] [phone] Rx Patient: Nano Robles : 1960 DATE: 11/20/2017 1. Accu-chek Danita Plus Glucometer. Dispense #1, Sig: Use b.i.d. before breakfast and dinner, no refills. Dx Code: Z79.84 2. Accu-chek Danita Plus Test Strips. Dispense #50, Sig: Use b.i.d. before breakfast and dinner, 1 refill. Dx Code: Z79.84 3. Accu-chek Lancets. Dispense #100, Sig: Use b.i.d. before breakfast and dinner, no refills. Dx: Code: Z79.84 Po Donnelly MD
== END 2017-11-18 18:14 | DRG 754 ==
LOC: ERH 16:51 → CP SOUTH 20:55 → ERHI 20:55 → ENTRNSPT 22:02 → EDTRNSPTSTS 22:05 → CMPTRNSPT 22:25 → CP SOUTH 22:31
PROVIDERS: Physician Assistant Medical
DX: F32.9 Major depressive disorder, single episode, unspecified (principal); J44.9 Chronic obstructive pulmonary disease, unspecified; E11.9 Type 2 diabetes mellitus without complications; E55.9 Vitamin D deficiency, unspecified; E66.3 Overweight
CPT/HCPCS: 71046; 80307; 81001; 87086; 93005; 93010; G0480; J3490